=== PATIENT | male | born 1940 | race Caucasian/White ===

== ENCOUNTER 2020-10-26 10:18 | Outpatient (REF) | payer MEDICARE, SELFPAY ==
[2020-10-26 13:05] LABS: Hematocrit 40.6 % (42-52); Hemoglobin 13.2 g/dl (14.0-18.0); Mean Corpuscular HGB Conc 32.5 g/dl (31.0-36.0); Mean Corpuscular Hemoglobin 29.9 pg (27.0-33.0); Mean Corpuscular Volume 91.9 fL (80-98); Mean Platelet Volume 10.9 fL (9.4-12.4); Platelet Count 222 X10*3/uL (160-400); Red Blood Count 4.42 X10*6/uL (4.60-5.80); Red Cell Distribution Width 13.4 % (11.0-16.0); White Blood Count 7.5 X10*3/uL (4.8-10.8)
[2020-10-26 13:43] LABS: Alanine Aminotransferase 13 U/L (0-40); Alkaline Phosphatase 87 U/L (39-117); Anion Gap 15 (12-20); Aspartate Amino Transferase 18 U/L (5-37); Bilirubin Total 0.6 mg/dL (0.0-1.0); Blood Urea Nitrogen 20 mg/dL (9-16); Carbon Dioxide 24 mmol/L (22-29); Chloride 106 mmol/L (96-108); Estimated Glomerular Filt Rate 60; Glucose Random 115 mg/dL (60-115); Potassium 4.3 mmol/L (3.3-5.1); Sodium 141 mmol/L (135-145); Total Protein 6.3 g/dL (6.5-8.0)
[2020-10-26 13:49] LABS: Estimated Average Glucose 120 mg/dL; Hemoglobin A1c % 5.8 %
== END 2020-10-26 10:19 | disposition home or self-care (01) ==
LOC: HO.MANLDS 10:18
PROVIDERS: PCP Internal Medicine; Visit Provider Internal Medicine
DX: R73.01 Impaired fasting glucose (principal)
CPT/HCPCS: 36415; 80053; 83036; 85027

== ENCOUNTER 2021-05-30 14:24 | Outpatient (REF) | payer MEDICARE, SELFPAY ==
[2021-05-30 18:15] LABS: Hematocrit 39.6 % (42.0-52.0); Hemoglobin 12.6 g/dl (14.0-18.0); Mean Corpuscular HGB Conc 31.8 g/dl (31.0-36.0); Mean Corpuscular Hemoglobin 29.5 pg (27.0-33.0); Mean Corpuscular Volume 92.7 fL (80.0-98.0); Mean Platelet Volume 10.7 fL (9.4-12.4); Platelet Count 357 X10*3/uL (160-400); Red Blood Count 4.27 X10*6/uL (4.60-5.80); Red Cell Distribution Width 12.8 % (11.0-16.0); White Blood Count 11.1 X10*3/uL (4.8-10.8)
[2021-05-30 18:32] LABS: Alanine Aminotransferase 12 U/L (0-40); Albumin Level 3.7 g/dL (3.5-5.0); Alkaline Phosphatase 89 U/L (39-117); Anion Gap 13 (12-20); Aspartate Amino Transferase 15 U/L (5-37); Bilirubin Total 0.4 mg/dL (0.0-1.0); Blood Urea Nitrogen 21 mg/dL (9-16); C Reactive Protein 0.52 mg/dL (< or = 0.50); Calcium 9.1 mg/dL (8.4-10.2); Carbon Dioxide 26 mmol/L (22-29); Chloride 107 mmol/L (96-108); Estimated Glomerular Filt Rate 53; Glucose Random 121 mg/dL (60-115); Potassium 4.4 mmol/L (3.3-5.1); Sodium 142 mmol/L (135-145); Total Protein 6.5 g/dL (6.5-8.0)
[2021-05-30 18:53] LABS: Prostate Specific Antigen 1.28 ng/mL (<0.05-4.0)
== END 2021-05-30 14:25 | disposition home or self-care (01) ==
LOC: HO.MANLDS 14:24
PROVIDERS: PCP Internal Medicine; Visit Provider Internal Medicine
DX: I10 Essential (primary) hypertension (principal); Z12.5 Encounter for screening for malignant neoplasm of prostate
CPT/HCPCS: 36415; 80053; 84153; 85027; 86140

== ENCOUNTER 2022-03-27 12:06 | Outpatient (REF) | payer MEDICARE, SELFPAY ==
[2022-03-27 14:08] LABS: Appearance Urine Clear; Color Urine Yellow; Glucose Urine UA Negative (Negative); Leukocyte Esterase Urine Negative (Negative); Nitrite Urine Negative (Negative); Specific Gravity - Urine 1.015 (1.005-1.025); Urine Blood Negative (Negative); Urine Ketones Negative (Negative); Urine Protein Negative (Neg-Trace)
[2022-03-27 14:17] LABS: Bacteria Urine None Seen (None Seen); Hyaline Casts Urine 0-2 /LPF (0-2); RBC Urine 0-2 /HPF (0-2); Squamous Epithelial Cell Urine 0-2 /HPF (0-2); WBC Urine 0-5 /HPF (0-5)
== END 2022-03-27 12:07 | disposition home or self-care (01) ==
LOC: HO.MANLDS 12:06
PROVIDERS: Visit Provider Physician Assistant
DX: C67.1 Malignant neoplasm of dome of bladder (principal)
CPT/HCPCS: 81001; 87086

== ENCOUNTER 2022-05-11 11:32 | Outpatient (REF) | payer MEDICARE, SELFPAY ==
[2022-05-11 15:19] LABS: Vitamin B12 397 pg/mL (200-900)
== END 2022-05-11 11:33 | disposition home or self-care (01) ==
LOC: HO.MANLDS 11:32
PROVIDERS: Visit Provider Internal Medicine
DX: E55.9 Vitamin D deficiency, unspecified (principal); E53.8 Deficiency of other specified B group vitamins
CPT/HCPCS: 36415; 82306; 82607

== ENCOUNTER 2024-06-23 13:49 | Outpatient (REF) | payer MEDICARE, SELFPAY ==
--- OUTSIDE RECORDS SUMMARY | 2024-06-23 17:01 | XMS_ITS ---
Author Name [facility] [place] Organization [facility] [place] Address [address] [place] [id number] Care Team Providers Care Postbed Stitcher Name Role Phone MARIE CONSTANTINO Primary Care Provider Unavail able Insurance Providers: All historical and current Section Date Range: From patient's date of to the date document was created. This section includes the names of all active insurance providers for the patient. Insurance Provider Type of Coverage Plan Name Start of Policy Coverage End of Policy Coverage Group Number Member ID Insurance Provider's Telephone Number Policy Guo's Name Patient's Relationship to Policy Gou [facility] MEDICARE SUPPLEMEN SONIA PSUED OMEDE XBRON ZE Mar 11, 2008 [id number] Job FITZGERALDN PATIENT [facility] MEDICARE SUPPLEMEN SONIA MEDEX BRONZ E Mar 11, 2008 [id number] [phone] Job FITZGERALD DWIN PATIENT MEDICARE (WNR) MEDICARE (M) PART B Feb 09, 2008 PART B [id number] Job FITZGERALD DWIN PATIENT MEDICARE (WNR) MEDICARE (M) PART B Feb 09, 2008 PART B [id number] Job FITZGERALD DWIN PATIENT MEDICARE (WNR) MEDICARE (M) PART A July 10, 2007 PART A [id number] Job FITZGERALD DWIN PATIENT MEDICARE (WNR) MEDICARE (M) PART A July 10, 2007 PART A [id number] DWIN PATIENT Selected Encounter This section includes the information on record at [place] for the Encounter. Date/Time Encounter Type Encounter Description Reason Pro vider Source Jan 07, 2024 06:25 PM Outpatient Encounter ADMIN PAT ACTIVTIES (REDDYNONCT) IHE Encounter Template Text not used by [place] Plan of Treatment: Future Appointments (+ 6 months) and Future Tests (+/- 45 days) The Plan of Treatment section includes future care activities for the patient from all [place] [facility] This section includes future appointments and future orders which are active, pending or scheduled. Future Appointments This section includes appointments that were scheduled to occur 6 months from the date of the Encounter, up to a maximum of 20 appointments. The data comes from all [place] treatment facilities. Appointment Date/Time Appointment Type Appointme nt Facility Name Jan 29, 2024 11:00 AM [facility] Feb 13, 2024 03:00 PM AMBULAT[facility] Mar 23, 2024 02:00 PM [facility]INE [facility] Mar 23, 2024 02:30 PM AMBULATORY - MEDICINE [facility] Social History: Smoking Status (Most current) and Tobacco Use (All prior to encounter date) This section includes the most current, and the historical, smoking and tobacco- related health factors from the [place] facility where the Encounter took place. Current Smoking Status This section includes the most current smoking, or tobacco-related health factor, from the [place] facility where the Encounter took place. Date/Time Current Smoking Status Comment Facil ity Nov 22, 2022 10:00 AM [place]-TOBAC[place] FORMER USER [facility] Tobacco Use History This section includes a history of the smoking, or tobacco-related health factors, that were collected on or before the date of the Encounter. The data comes from the [place] facility where the Encounter took place. Date/Time Smoking Status/Tobacco Use Comment F acility Nov 22, 2022 10:00 AM [place]-TO[place]AC[place] QUIT 15 YRS OR MORE [facility] Dec 21, 2016 10:02 AM QUIT TOBACCO USE > 7 YEARS AGO [facility] Dec 12, 2015 09:07 AM QUIT TOBACCO USE > 7 YEARS AGO [place] [facility] Feb 29, 2012 02:16 PM QUIT TOBACCO USE > 7 YEARS AGO [facility] Encounter Notes: All associated encounter notes This section contains the clinical notes associated to the Encounter. Date/Time Encounter Note(s) Provider Source Jan 08, 2024 08:56 AM ADDENDUM: LOCAL TITLE: Addendum STANDARD TITLE: ADDENDUM DATE OF NOTE: JAN 08, 2024@08:56:52 ENTRY DATE: JAN 08, 2024@08:56:53 AUTHOR: MARINE AUSTIN EXP COSIGNER: URGENCY: STATUS: COMPLETED I ordered 1 bottle of 0.5% timolol to be mailed to the patient. He will need to be scheduled for optometry with imaging before any more refills can be mailed to him. Please schedule patient for within the next 45 days with any available provider or open access. /amado/ MARINE AUSTIN OD STAFF ANALYTICS ARCHITECT Signed: 01/08/2024 08:58 Receipt Acknowledged By: 01/08/2024 09:29 /es/ JADYN VASQUEZ ADVANCED PROSTHETIC LAB TECHNICIAN 01/08/2024 12:21 /amado/ ANNE MYRICK ADVANCED PROSTHETIC LAB TECHNICIAN ====== --- Original Document --- 01/07/24 V1 PHARMACY CUSTOMER CARE MEDICATION RENEWAL: Date: Dec Division: [facility] referred by Pharmacy Call Center for medication renewal: Non-controlled/maintenan ce medication Medications requested: [id number] TIMOLOL MALEATE 0.5% OPH SOLN Defer to specialty clinic To be mailed . Please review and renew if appropriate. *This note was generated by [facility] Customer Care. If you have any questions or need assistance, do not contact this author. Please refer all questions to your local, on-site pharmacy departments. /es/ MERLINE MAYERS Top Case Assembler, [place]/Pharmacy Customer Care Signed: 01/07/2024 18:25 Receipt Acknowledged By: 01/08/2024 08:56 /amado/ MARINE AUSTIN OD STAFF ANALYTICS ARCHITECT 01/08/2024 ADDENDUM STATUS: COMPLETED Called to schedule - no answer. LVM /amado/ JADYN VASQUEZ ADVANCED PROSTHETIC LAB TECHNICIAN Signed: 01/08/2024 09:33 MARINE AUSTIN [place] [facility] [place] [facility] Jan 07, 2024 06:25 PM PHARMACY NOTE: LOCAL TITLE: V1 PHARMACY CUSTOMER CARE MEDICATION RENEWAL STANDARD TITLE: PHARMACY NOTE DATE OF NOTE: JAN 07, 2024@18:25 ENTRY DATE: JAN 07, 2024@18:25:33 AUTHOR: MERLINE MAYERS EXP COSIGNER: URGENCY: STATUS: COMPLETED V1 PHARMACY CUSTOMER CARE MEDICATION RENEWAL Has ADDENDA Date: Dec Division: [facility] referred by Pharmacy Call Center for medication renewal: Non-controlled/maintenan ce medication Medications requested: [id number] TIMOLOL MALEATE 0.5% OPH SOLN Defer to specialty clinic To be mailed . Please review and renew if appropriate. *This note was generated by [facility] Customer [facility]. If you have any questions or need assistance, do not contact this author. Please refer all questions to your local, on-site pharmacy departments. /marizol MAYERS Top Case Assembler, [place]/Pharmacy Customer Care Signed: 01/07/2024 18:25 Receipt Acknowledged By: 01/08/2024 08:56 /marizol AUSTIN OD STAFF ANALYTICS ARCHITECT 01/08/2024 ADDENDUM STATUS: COMPLETED I ordered 1 bottle of 0.5% timolol to be mailed to the patient. He will need to be scheduled for optometry with imaging before any more refills can be mailed to him. Please schedule patient for within the next 45 days with any available provider or open access. /marizol AUSTIN OD STAFF ANALYTICS ARCHITECT Signed: 01/08/2024 08:58 Receipt Acknowledged By: 01/08/2024 09:29 /marizol VASQUEZ ADVANCED PROSTHETIC LAB TECHNICIAN * AWAITING SIGNATURE * ANNE MYRICK 01/08/2024 ADDENDUM STATUS: COMPLETED Called to schedule - no answer. MARISABEL /amado/ JADYN VASQUEZ ADVANCED PROSTHETIC LAB TECHNICIAN Signed: 01/08/2024 09:33 MERLINE MAYERS [facility]
--- OUTSIDE RECORDS SUMMARY | 2024-06-23 17:01 | XMS_ITS | Encounter Summary ---
Author Name [facility] [place] [facility] [place] Address [address] [place] [address] Care Team Providers Care Asbestos Hazard Abatement Worker Name Role Phone MARIE CONSTANTINO Primary Care [...] Policy Guo's Name Patient's Relationship to Policy Guo [facility] MEDICARE SUPPLEMEN SONIA PSUED OMEDE XBRON ZE Mar 11, 2008 [id number] [phone] Job FITZGERALD DWIN PATIENT [facility] MEDICARE SUPPLEMEN SONIA MEDEX BRONZ E Mar 11, 2008 [id number] [phone] Job FITZGERALD DWIN PATIENT MEDICARE (WNR) MEDICARE (M) PART B Feb 09, 2008 PART B [id number] [phone] Job FITZGERALD DWIN PATIENT MEDICARE (WNR) MEDICARE (M) PART B Feb 09, 2008 PART B [id number] Job FITZGERALD DWIN PATIENT MEDICARE (WNR) MEDICARE (M) PART A July 10, 2007 PART A [id number] Job FITZGERALD DWIN PATIENT MEDICARE (WNR) MEDICARE (M) PART A July 10, 2007 PART A [id number] Job FITZGERALDN PATIENT Selected Encounter This section includes the information on record at [place] for the Encounter. Date/Time Encounter Type Encounter Description Reason Provider Source Mar 23, 2024 02:30 PM CPTRZD OPH DX IMG PST SGM ON OPTOMETRY ICD-10-CM H40.1131 Primary open-angle glaucoma, bilateral, mild stage MARINE AUSTIN IHE Encounter Template Text not used by [place] Assessments - Encounter Diagnoses This section includes the primary and secondary diagnoses documented for the Encounter. Date/Time Primary/Secondary Diagnosis Diagnosis Name Provider Source Mar 23, 2024 03:05 PM PRIMARY Primary open-angle glaucoma, bilateral, mild stage MARINE AUSTIN [facility] Social History: Smoking Status (Most current) and Tobacco Use (All prior to encounter date) This section includes the most current, and the historical, smoking and tobacco- related health factors from the [place] facility where the Encounter took place. Current Smoking Status This section includes the most current smoking, or tobacco-related health factor, from the [place] facility where the Encounter took place. Date/Time Current Smoking Status Comment Facil ity Nov 22, 2022 10:00 AM [place]TO[place] FORMER USER [facility] Tobacco Use History This section includes a history of the smoking, or tobacco-related health factors, that were collected on or before the date of the Encounter. The data comes from the [place] facility where the Encounter took place. Date/Time Smoking Status/Tobacco Use Comment F acility Nov 22, 2022 10:00 AM [place]-TO[place] QU[place] 15 YRS OR MORE [facility] Dec 21, 2016 10:02 AM QUIT TOBACCO USE > 7 YE[facility] AGO [facility] Dec 12, 2015 09:07 AM QUIT TOBACCO USE > [facility] Feb 29, 2012 02:16 PM QUIT TOBACCO USE > [facility] Encounter Notes: All associated encounter notes This section contains the clinical notes associated to the Encounter. Date/Time Encounter Note(s) Provider Source Mar 23, 2024 02:58 PM OPTOMETRY CONSULT: LOCAL TITLE: CONSULT REPORT/OPTOMETRY OCT STANDARD TITLE: OPTOMETRY CONSULT DATE OF NOTE: MAR 23, 2024@14:58 ENTRY DATE: MAR 23, 2024@14:58:41 AUTHOR: LUIZA PATEL EXP COSIGNER: MARINE AUSTNI URGENCY: STATUS: COMPLETED RNFL OCT report: RNFL OCT reviewed for patient with underterminated stage of primary open-angle glaucoma OU OD Signal strength: 11/18 OD: average c/d 0.72, vertical c/d 0.80, disc area 1.72 mm^2. Average RNFL thickness 82 microns. Thinning at 7 o'clock. OS Signal strength: 10/18 OS: average c/d 0.83, vertical c/d 0.91, disc area 1.96 mm^2. Average RNFL thickness 71 microns. Mild thinning at 1 and mod thinning at 4 o'clock A/P: Bilateral primary open-angle glaucoma, unspecified stage OU; pt report good compliance with taking Timolol qAM OU - Thinner than average pachymetry OU: 527/522um - IOP higher than previous exaam: 17/18mmHg - Continue Timolol 0.5% 1gtt QAM OU - RNFL OCT today shows slight progressive thinning of rim tissue inferior temporally OD and stable OS - Pt re-educated about the importance of taking Timolol as directed - RTC 6mo for IOP check and repeated RNFL OCT /amado/ LUIZA PATEL OPTOMETRY STUDENT Signed: 03/23/2024 15:38 /amado/ MARINE AUSTIN OD STAFF APPRAISER REAL ESTATE Cosigned: 03/23/2024 15:38 [facility]EL [facility]
--- OUTSIDE RECORDS SUMMARY | 2024-06-23 17:01 | XMS_ITS ---
Author Name [facility] [place] [facility] [place] [facility] [place] [place] Address [address] [place] [id number] Care Team Providers Care Singing Telegram Performer Name Role Phone MARIE CONSTANTINO Primary Care [...] Guo's Name Patient's Relationship to Policy Guo [facility] MEDICARE SUPPLEMEN SONIA PSUED OMEDE XBRON ZE Mar 11, 2008 [id number] [facility] MEDICARE SUPPLEMEN SONIA MEDEX BRONZ E Mar 11, 2008 [id number] [phone] Job FITZGERALD DWIN PATIENT MEDICARE (WNR) MEDICARE (M) PART B Feb 09, 2008 PART B [id number] [phone] Job FITZGERALD DWIN PATIENT MEDICARE (WNR) MEDICARE (M) PART B Feb 09, 2008 PART B [id number] [phone] Job FITZGERALD DWIN PATIENT MEDICARE (WNR) MEDICARE (M) PART A July 10, 2007 PART A [id number] Job FITZGERALD DWIN PATIENT MEDICARE (WNR) MEDICARE (M) PART A July 10, 2007 PART A [id number] [phone] SZACRUK,E DWIN PATIENT Selected Encounter This section includes the information on record at [place] for the Encounter. Date/Time Encounter Type Encounter Description Reason Provider Source Feb 13, 2024 03:00 PM OFFICE O/P EST HI 40 MIN LOW VISION CARE ICD-10-CM H54.8 Legal blindness, as defined in [place] [facility] Encounter Template Text not used by [place] Assessments - Encounter Diagnoses This section includes the primary and secondary diagnoses documented for the Encounter. Date/Time Primary/Secondary Diagnosis Diagnosis Name Provider Source Feb 13, 2024 03:55 PM PRIMARY Legal blindness, as defined in [place] ALONDRA [facility]ENIOR [facility] Feb 13, 2024 03:55 PM SECONDARY Combined forms of age-related cataract, left eye SENIORALONDRA [facility] Feb 13, 2024 03:55 PM SECONDARY Exudative age-rel mclr degn, bilateral, with inactive scar SENIOR,ALONDRA Orr [facility] Feb 13, 2024 03:55 PM SECONDARY Presence of intraocular lens SENIOR,ALONDRA Orr [facility] Plan of Treatment: Future Appointments (+ 6 months) and Future Tests (+/- 45 days) The Plan of Treatment section includes future care activities for the patient from all [place] [facility] This section includes future appointments and future orders which are active, pending or scheduled. Future Appointments This section includes appointments that were scheduled to occur 6 months from the date of the Encounter, up to a maximum of 20 appointments. The data comes from all [place] treatment facilities. Appointment Date/Time Appointment Type Appointme nt Facility Name Mar 23, 2024 02:00 PM AMBULATORY - MEDICINE [facility] Mar 23, 2024 02:30 PM AMBULATORY - MEDICINE [facility] Social History: Smoking Status (Most current) and Tobacco Use (All prior to encounter date) This section includes the most current, and the historical, smoking and tobacco- related health factors from the [facility] facility where the Encounter took place. Current Smoking Status This section includes the most current smoking, or tobacco-related health factor, from the [place] facility where the Encounter took place. Date/Time Current Smoking Status Comment Facil ity Nov 22, 2022 10:00 AM VA-TOBACCO FORMER USER [facility] Tobacco Use History This section includes a history of the smoking, or tobacco-related health factors, that were collected on or before the date of the Encounter. The data comes from the [place] facility where the Encounter took place. Date/Time Smoking Status/Tobacco Use Comment F beni Nov 22, 2022 10:00 AM VA-TOBACCO QUIT 15 YRS OR MORE [facility] Dec 21, 2016 10:02 AM QUIT TOBACCO USE > 7 YEARS AGO [facility] Dec 12, 2015 09:07 AM QUIT TOBACCO USE > 7 YEARS AGO [facility] Feb 29, 2012 02:16 PM QUIT TOBACCO USE > 7 YEARS AGO [facility] Encounter Notes: All associated encounter notes This section contains the clinical notes associated to the Encounter. 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) Appointment Information: () Telehealth (Audio Only) () [facility] Telehealth () Video Chat Service Other: (x) Dzmf-hz-bpfo Verified two identifications: (x) Full name () Full Social Security Number (x) Date of () Address () Other, specify: (x)Yes ()No ()No Family/Friends present - Received verbal permission to speak in front of family/friend from Relationship to : Toni Nqlg-ws-Yblr Time documentation: Start time: 3:00pm End time:3:45pm Total time: 45 minutes minus Refraction time: (-) 0 min minus Special procedures time: (-) 0 min = 45 minutes total time spent with patient *Greater than 50% of the visit spent ttym-hm-buae with patient was used for patient education and counselling. Patient was educated about permanent nature of vision loss and specific visual limitation from patient's specific etiology. Realistic outcomes of exam discussed at length. Patient educated at length on importance of full-time protection and safety concerns with each recommendation. Patient educated on best use of remaining vision and visual prognosis. Patient educated re proper use and purpose of each device and spectacle. Patient educated on purpose of low vision evaluation and that this does not replace ocular health examinations. Further details of specific education as described above.* Coordination of Care: Prolonged time spent on coordination of care. Extensive record review performed in relation to prior ocular, systemic and mental health as well as VIST/BROS records both at this VA facility and all documentation available from outside providers as well as other VA locations to determine any physical, emotional, cognitive and visual events that may impact patient regarding the low vision evaluation and potential device recommendations. Total time spent (not tqvv-ky-vgin): 30 minutes Total Time (Direct + Non-Direct): 45 + 30 = 75 minutes Procedure Codes: Established Patient (1 time) 28631 Est Patient (40-54 minutes) Extended time Procedure Codes Established Patients Prolonged Office or other Outpatient Evaluation and Management Service(s) Beyond the Minimum Required Time of the Primary Procedure which has been Selected using Total Time, Requiring Total Time with or without Direct Patient Contact Beyond the Usual Service, on the Date of the Primary Service, each 15 minutes of Total Time (List Separately in addition to Codes 81044, 55727 for Office or other Outpatient Evaluation and Management Services) (2 times) 35455 (70-84 minutes) Chief Complaint(s): 1. Low Vision History Review 2. Zmwx-eh-Qlko Evaluation a. Habitual Rx c comments b. Visual Acuity c. Static Retinoscopy d. Subjective Refraction e. Final RX 3. Ocular Pathology Education 4. Final Recommendations 5. Future LVOD Appointments/RTC Instruction Provided: 1. Low Vision History Review Low Vision Evaluation for: LULÚ Crockett GIANNIRENA, 83 year old MALE Examiner: Alondra Senior, OD, FAAO Ocular Diagnosis: see above EULA: Location: 06.13.22 [facility] 12.20.21 [facility] [place] [facility] (x)NHM ()S Low vision instructor: Damien CARRANZA Chief Complaint: has not had ocular health managed and last refill sent in 01/[address] Edge approved open access in CPRS note dated 01/07/24. Assisted with MSA to find appointment on 03/23 for to come in for ocular health exam to ensure he can continue glaucoma medications. Buoevb-tm-rhy was not aware if VIST may be managing glaucoma so education provided to family. [place] extremely hard of hearing making all communication extremely difficult. RE- educated that there is not an eye transplant to fix his vision. Educated and family numerous times that there is not a pair of glasses that can make his vision as clear as he would like. Reports difficulty with reading menus, does not wear his glasses and has not tried to use his HHM. Chronology of Vision Loss: see prior report Adjustment to vision loss: appreciative of training and devices received but still not accepting of permanent nature of vision loss and lack of a fix to solve his permanent retinal damage. MISC: Eye Dominancy: OD Hand Dominancy: Right Color Vision: Denies difficulty Ocular Inventory: (-) Eye Pain (-) Burning (-) Itching (-) Watering (-) Redness (+) Photophobia: longstanding indoors and outdoors (-) Flashers (-) Floaters (-) Diplopia (-) Asthenopia (-) Headaches (-) Amaurosis Fugax (-) TIAs (+) Eye Injury or Trauma: h/o metallic FB (+) Eye Surgery: CE/PCIOL OD Dr. Tucker 2011; multiple injections OU (-) TBI (-) Jayesh Bonnet Syndrome Pt ed re CBS causes and signs. Pt ed to report these symptoms. No olfactory, auditory or gustatory sensation associated. 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) 272.4 HYPERLIPIDEMIA (ICD-9-CM 272.4) 401.9 HYPERTENSION (ICD-9-CM 401.9) H54.8 Legal blindness [facility] ([facility] [id number]) 278.00 OBESITY (ICD-9-CM 278.00) 600.00 BPH W/O URINARY OBSTRUCT (ICD-9-CM 600.00) Systemic Medications: Active Outpatient Medications (including Supplies): Active Outpatient Medications Status 1) TIMOLOL MALEATE 0.5% OPH SOLN INSTILL 1 DROP INTO EACH EYE ACTIVE EVERY MORNING Indication: FOR INCREASED PRESSURE IN THE EYE Active Non-VA Medications Status 1) Non-VA ASPIRIN 81MG EC TAB 81MG BY MOUTH AT BEDTIME ACTIVE 2) Non-VA IBUPROFEN TAB BY MOUTH NEEDED ACTIVE 3) Non-VA LOVASTATIN 10MG TAB 10MG BY MOUTH AT BEDTIME ACTIVE 4) Non-VA TERAZOSIN HCL 5MG CAP 5MG BY MOUTH AT BEDTIME ACTIVE 5 Total Medications ALLERGIES: Patient has answered NKA PREVIOUS OPTICAL DEVICES 1. Constant Wear Spec.: How Old: 06.14.22 Where From: [facility] OD: +0.50-1.28q060 OS: +1.00-2.68e510 Description: SV Tint: BlueBlocker #1 Subjective Comments: not using. *Prior Tints: 80% Transmission [place]/Pamela 70% Transmission Swan 80% Transmission Pamela 2. Reading Spec.: How Old: 06.14.22 Where From: [facility] OD: +3.00-1.59n225 OS: +3.50-2.73d546 Description: SV Tint: Blue Kole #1 Subjective Comments: using with machine 3. Intermediate Spec.: How Old: 12/2018 Where From: [facility] LV OD: +2.50-1.86z566 OS: +3.00-2.26u684 Description: SV CCTV Tint: 70% Transmission Swan Subjective Comments: had prior binoc and monoc occlus from 2016 *Prior Tints: 80% transmission [place]/Pamela 4. Non-Illuminated HHM: Description: 4x HH Yo-Yo (red cover) How Old: 12/2018 Where From: [facility] LV 5. Illuminated HHM: Description: HEMA Ergo-Lux MP Mobil 16D How Old: 12/2018 Where From: [facility] 6. Monocular/Binocular Telescopes: Description: 3x binocular sportsglasses How Old: 03/2012 Where From: [facility] Subjective Comments: 6. Monocular/Binocular Telescopes: Description: 6x16 slide How Old: 03/2012 Where From: [facility] Subjective Comments: 7. Spectacle Mounted Telescopes: n/a 8. Sunwear: 30% Transmission Swan *Prior Tints: 30% Transmission [place]/Pamela 9. Non-optical Devices: Ultima Low Vision Watch - White Dial - Leather Band Liquid Level Indicator, Dual Beep, 3 prong Oven Mitt (please order quantity of 2) Push Pull Oven Ruler Double Spatula Tavera-Plastic Double Spatula Tavera-Metal Timer, Tact. Erg. (square-White Face) Low Vision High Contrast Black and White Cutting Board autodrop eye drop Low Vision Watch - White Face - Gold Expansion Band Mens Chrome Low Vision Watch - Leather band Writing Guide, Deluxe Check Mens Gold-Tone Low Vision Watch SIGNATURE GUIDE 10. Other Spectacles or Devices: (x) Optivisor 3D c 10D loupe and quasar light * not using (x) LuxoMag Lamp 5D with 10D swing lens *has over bench (x) Stand Magnifier POWERMAG+ 5X/16D LED STAND HEAD (x) CCTV with/without OCR 19 Brad CCTV () Portable Video Magnifier () Head borne Video Magnifier () Other: MOBILITY: In Patient's Home: (x) Patient denies difficulty or recent falls Outdoors: (x) Patient denies difficulty or recent falls CO-MORBIDITIES: (for rehab potential purposes) () Severe Arthritis () Hand tremors () Cognition impairment () Hearing loss () Depression/anxiety () Physical limitations () Memory loss () Other: INTERESTS/HOBBIES: enjoys using CCTV, reports he wears his glasses when he watches TV and doesn't watch a lot of TV. Reports he enjoys reading books. Enjoys playing [place], uses TS and HHM for this. GOALS (PRIORITIZED): 1. Assist in re-establishing care with ocular health provider 2. Fbki-eg-Xgcl Evaluation a. Habitual Rx c comments: DVAcc: 12.20.21 OD: +0.50-1.01q273 10/60-1 3 mod OS: +1.00-2.55p159 10/300 10 mod b. Visual acuity Nery cc Eccentric View: Illumination: OD: 10/100+1 3 mod-dim OS: 10/350 10 mod-dim Comments: extremely difficulty c. Static Retinoscopy OD: neutral OS: neutral d. Subjective Refraction: no improvement e. Final RX: CPM Comments: Patient educated extensively that constant wear glasses and sunglasses will reduce glare and provide protection but will not improve clarity from current glasses and that for best clarity must use PRL. Patient educated multiple times on the importance of full-time protective eyewear. Discussed with the patient the realistic expectations and goal of low vision services in maximizing remaining vision to best meet his visual goals. 3. Ocular Pathology Education: Patient educated at length regarding natural history of ocular pathology, purpose of treatment, and the impact on functional vision. Patient educated on the importance of continued follow-up with ocular health providers and that low vision rehabilitation in no way replaces ocular health exams. Patient educated on importance of alerting ocular health provider of any changes in vision or new symptoms. Patient educated on permanent nature of vision loss associated with ocular pathology. Patient educated on the differences in refractive error and the impact of ocular pathology. Patient educated on purpose of glasses and adaptive aids. 4. Final Recommendations: CPM 5. Future LVOD Appointments/RTC (x)Low vision evaluation completed at this time, no scheduled follow-up indicated at present RTC as needed Prosthetics Ordered: 1. See Above Next Lesson Objective / Recommendations: 1. The evaluation and training on the use of the recommended aids, processes, and/or techniques is complete, no additional instruction is necessary at this time. 2. The [place] has been provided large print contact information and is aware that he can contact the LVOD, VIST or BROS with any questions from todays lesson or about his vision loss. Comments: How does the patient/client best learn? (x) Observation (x) Repetition () Large Print Directions () Standard Print Directions (x) Audible Directions Does the patient/client have any cultural and congregational beliefs, emotional barriers, physical or cognitive limitations, and communication barriers which may impact his/her ability to learn? Barrier to Patient Education identified: None() Non-Romansh speaking() Cognitive () Hearing Impaired (xxx) Emotional () Spiritual Practices () Visually Impaired (x) Inability to read () Preferred method of learning: (x)Verbal ()Written ()Demonstration Patient's response: (x)Could repeat significant material (x)Asked pertinent questions (x)Able to demonstrate skills learned Desire and motivation to learn? () Excellent () Moderate (x) Low Not receptive to learning () Patient Education Education provided on the following topics: see above Education provided to: P Response to Education: KEENAN, SHEBA, PI Lopez Patient P Family F Significant Other SO Verbalizes Understanding VU Returns Demonstration RD Performs Independently PI Lacks Comprehension LC Refused Education RE Not Applicable NA Disclaimer: Because the acuities and piña in this evaluation were taken using special techniques and lighting NOT contained in the [place] Physician Guide Disability Evaluation Examination, they CANNOT be used for rating purposes. Medication Reconciliation: Outpatient: Has the patient been taking medications as documented in the EMLR? YES: The patient has been taking medications as documented in the EMLR. Essential Medication List for Review used to complete this medication reconciliation. INCLUDED IN THIS LIST: Alphabetical list of active outpatient prescriptions dispensed from this VA (local) and dispensed from another VA or DoD facility (remote) as well as inpatient orders (local, pending and active), local clinic medications, locally documented non-VA medications, and local prescriptions that have or been discontinued in the past 90 days. - All changes in medications, including all non-VA/Herbal/OTC medications were entered into CPRS. - If there were any medications the patient should no longer take, they were discontinued. - The patient/caregiver was instructed to update this list, discard old lists, and take this list to the next appointment, whether with a VA or non-VA provider. Medication List: JLV Link Data on this list may not be complete. Please check JLV. Allergies/ADRs (Tool #5) FACILITY ALLERGY/ADR -------- No Remote Allergy/ADR Data available for this patient IN [facility] No Known Allergies Med. Reconciliation (Tool #1) INCLUDED IN THIS LIST: Alphabetical list of active outpatient prescriptions dispensed from this VA (local) and dispensed from another VA or DoD facility (remote) as well as inpatient orders (local pending and active), local clinic medications, locally documented non-VA medications, and local prescriptions that have or been discontinued in the past 90 days. Non-VA Meds Last Documented On: Feb 29, 2012 NOTE The display of VA prescriptions dispensed from another VA or DoD facility (remote) is limited to active outpatient prescription entries matched to National Drug File at the originating site and may not include some items such as investigational drugs, compounds, etc. NOT INCLUDED IN THIS LIST: Medications self-entered by the patient into personal health records (i.e. [employer] Data) are NOT included in this list. Non-VA medications documented outside this [place], remote inpatient orders (regardless of status) and remote clinic medications are NOT included in this list. The patient and provider must always discuss medications the patient is taking, regardless of where the medication was dispensed or obtained. Non-VA ASPIRIN 81MG EC TAB TAKE ONE TABLET BY MOUTH AT BEDTIME Non-VA IBUPROFEN TAB TAKE BY MOUTH NEEDED On occassion. Non-VA LOVASTATIN 10MG TAB TAKE ONE TABLET BY MOUTH AT BEDTIME Non-VA TERAZOSIN HCL 5MG CAP TAKE 1 CAPSULE BY MOUTH AT BEDTIME OUTPT TIMOLOL MALEATE 0.5% OPH SOLN (Status = Active) INSTILL 1 DROP INTO EACH EYE EVERY MORNING FOR INCREASED PRESSURE IN THE EYE Rx# [id number] Last Released: 01/14/24 Qty/Days Supply: Rx Expiration Date: 04/07/24 Refills Remainin Indication: FOR INCREASED PRESSURE IN THE EYE SUPPLIES PHARMACY TERMS AND POSSIBLE PATIENT ACTIONS INPT = IN inpatient order IV = IN intravenous medication OUTPT = IN outpatient prescription PHARMACY POSSIBLE PATIENT TERMS EXPLANATION ACTIONS -------- ----- ACTIVE A prescription that can be If you have refills, filled at the local [place] pharmacy. you may request a refill of this prescription from your VA pharmacy. CLINIC A medication you received during If you have questions a visit to a VA clinic or about this medication emergency department. contact your VA healthcare team. DISCONTINUED A prescription your provider has Contact your VA stopped. It is no longer healthcare team if you available to be sent to you or need more of this picked up at the [place] pharmacy medication. window. A prescription which is too old Contact your VA to fill. This does not refer to healthcare team if you the expiration date of the need more of this medication in the container. medication. NON-VA A medication that came from If this medication someplace other than a VA information is pharmacy. This may be a incorrect or out of prescription from either the VA date, please tell your or non VA providers that was VA healthcare team. filled outside the VA. Or, it may be an khus-myc-ycpnixs (OTC), herbal, dietary supplements or sample medication. ON HOLD An active prescription that will Contact your VA not be filled until pharmacy pharmacy when you need resolves the issue. more of this medication. PARKED An active prescription that will Contact your VA not be filled until the patient pharmacy when you need requests it. this medication. PENDING This prescription order has been If you have been sent to the pharmacy for review instructed to start and is not ready yet. this medication now, contact your VA pharmacy. SUSPENDED An active prescription that is Contact your [place] not scheduled to be filled yet. pharmacy if you need You should receive it before this medication now. you run out. (x) Printed Medication Reconciliation List Offered and Declined by () Medication Reconciliation List Printed for at Exam () Optometry HT Please Print and Mail Copy of Medication Reconciliation List () AMSA Please Print and Mail Copy of Medication Reconciliation List /es/ ALONDRA SENIOR OD EDUCATIONAL RECRUITER Signed: 02/13/2024 15:58 ALONDRA SENIOR IN [facility]
--- OUTSIDE RECORDS SUMMARY | 2024-06-23 17:01 | XMS_ITS ---
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 Name Role Phone MARIE CONSTANTINO Primary Care [...] Guo's Name Patient's Relationship to Policy Guo [facility] MEDICARE SUPPLEMEN SONIA PSUED OMEDE XBRON ZE Mar 11, 2008 [id number] Job FITZGERALDN PATIENT [facility] MEDICARE SUPPLEMEN SONIA MEDEX BRONZ E Mar 11, 2008 [id number] [phone] Job FITZGERALD DWIN PATIENT MEDICARE (WNR) MEDICARE (M) PART B Feb 09, 2008 PART B [id number] Job FITZGERALD DWIN PATIENT MEDICARE (WNR) MEDICARE (M) PART B Feb 09, 2008 PART B [id number] Job FITZGERALD DWIN PATIENT MEDICARE (WNR) MEDICARE (M) PART A July 10, 2007 PART A [id number] Job FITZGERALD DWIN PATIENT MEDICARE (WNR) MEDICARE (M) PART A July 10, 2007 PART A [id number] SZACRUK,E DWIN PATIENT Selected Encounter This section includes the information on [place] at [place] for the Encounter. Date/Time Encounter Type Encounter Description Reason Provider Source Mar 23, 2024 02:00 PM COMPRE OPH EXAM EST PT 1/> OPTOMETRY ICD-10-CM H35.3223 Exudative age-rel mclr degn, left eye, with inactive scar MARINE AUSTIN Job Encounter Template Text not used by VA Assessments - Encounter Diagnoses This section includes the primary and secondary diagnoses documented for the Encounter. Date/Time Primary/Secondary Diagnosis Diagnosis Name Provider Source Mar 23, 2024 02:56 PM PRIMARY Exudative age-rel mclr degn, left eye, with inactive scar [place] [facility] [place] [facility] Mar 23, 2024 02:56 PM SECONDARY Age-related nuclear cataract, left eye [place] [facility] [place] [facility] Mar 23, 2024 02:56 PM SECONDARY Cortical age-related cataract, left eye [place] [facility] [place] [facility] Mar 23, 2024 02:56 PM SECONDARY Exudative age-rel mclr degn, right eye, with inactive scar [place] [facility] [place] [facility] Mar 23, 2024 02:56 PM SECONDARY Presence of intraocular lens [place] [facility] [place] [facility] Mar 23, 2024 02:56 PM SECONDARY Primary open-angle glaucoma, bilateral, mild stage [facility] [place] [facility] Social History: Smoking Status (Most current) and Tobacco Use (All prior to encounter date) This section includes the most current, and the historical, smoking and tobacco- related health factors from the [place] facility where the Encounter took place. Current Smoking Status This section includes the most current smoking, or tobacco-related health factor, from the [place] facility where the Encounter took place. Date/Time Current Smoking Status Comment Facil ity Nov 22, 2022 10:00 AM VA-TOBACCO [facility] Tobacco Use History This section includes a history of the smoking, or tobacco-related health factors, that were collected on or before the date of the Encounter. The data comes from the [place] facility where the Encounter took place. Date/Time Smoking Status/Tobacco Use Comment F acility Nov 22, 2022 10:00 AM VA-TOBACCO QUIT 15 YRS OR MORE [facility] Dec 21, 2016 10:02 AM QUIT TOBACCO USE > 7 YEARS AGO [facility] Dec 12, 2015 09:07 AM QUIT TOBACCO USE > 7 YEARS AGO [facility] Feb 29, 2012 02:16 PM QUIT TOBACCO USE > 7 YEARS AGO [facility] Encounter Notes: All associated encounter notes This section contains the clinical notes associated to the Encounter. Date/Time Encounter Note(s) Provider Source Mar 23, 2024 03:04 PM OPTOMETRY NOTE: LOCAL TITLE: OPTOMETRY NOTE(T) STANDARD TITLE: OPTOMETRY NOTE DATE OF NOTE: MAR 23, 2024@15:04 ENTRY DATE: MAR 23, 2024@15:04:32 AUTHOR: MARINE AUSTIN EXP COSIGNER: URGENCY: STATUS: COMPLETED Results were viewed and clinical findings were reviewed with student international bank manager and patient and results are in this note. Assessment and plan are reasonable. Patient history of mild open-angle glaucoma OU. Follow-up as scheduled for today. /amado/ MARINE AUSTIN OD STAFF SCAGLIOLA MECHANIC Signed: 03/23/2024 15:04 MARINE AUSTIN [facility] Mar 23, 2024 02:54 PM OPTOMETRY NOTE: LOCAL TITLE: OPTOMETRY NOTE(T) STANDARD TITLE: OPTOMETRY NOTE DATE OF NOTE: MAR 23, 2024@14:54 ENTRY DATE: MAR 23, 2024@14:54:32 AUTHOR: MARINE AUSTIN EXP COSIGNER: URGENCY: STATUS: COMPLETED I saw this patient in conjunction with the student and agree to the stated findings and plan after reviewing both history and repeating fink elements of physical exam. Patient presents for comprehensive exam well-known to me with history of wet macular degeneration with injections and is now stable dry scarring macular area each eye. He also has mild open-angle glaucoma with slightly elevated pressures today. He states that he takes timolol every morning but may miss the drops on occasion and has some difficulty with instillation. Otherwise no other acute ocular disease was seen today. The patient will return in 6 months or sooner if any problems arise, including repeat imaging (OCT). /es/ MARINE AUSTIN OD STAFF SCAGLIOLA MECHANIC Signed: 03/23/2024 14:58 [place] [facility] [facility] [place] [facility] Mar 23, 2024 07:32 AM OPTOMETRY NOTE: LOCAL TITLE: OPTOMETRY NOTE STANDARD TITLE: OPTOMETRY NOTE DATE OF NOTE: MAR 23, 2024@07:32 ENTRY DATE: MAR 23, 2024@07:32:47 AUTHOR: LUIZA PATEL EXP COSIGNER: MARINE AUSTIN URGENCY: STATUS: COMPLETED Active problems - Computerized Problem List is the source for the followin. Cochlear Device Implantation 2. Bladder Carcinoma 3. HYPERLIPIDEMIA 4. HYPERTENSION 5. Legal blindness [place] (SNOMED CT [id number]) 6. OBESITY 7. BPH W/O URINARY OBSTRUCT Active Outpatient Medications (including Supplies): Active Outpatient Medications Status = 1) TIMOLOL MALEATE 0.5% OPH SOLN INSTILL 1 DROP INTO EACH EYE ACTIVE EVERY MORNING Indication: FOR INCREASED PRESSURE IN THE EYE Active Non-VA Medications Status = 1) Non-VA ASPIRIN 81MG EC TAB 81MG BY MOUTH AT BEDTIME ACTIVE 2) Non-VA IBUPROFEN TAB BY MOUTH NEEDED ACTIVE 3) Non-VA LOVASTATIN 10MG TAB 10MG BY MOUTH AT BEDTIME ACTIVE 4) Non-VA TERAZOSIN HCL 5MG CAP 5MG BY MOUTH AT BEDTIME ACTIVE 5 Total Medications Allergies: Patient has answered NKA All medications including those prescribed by outside VA's, community providers,and all OTC meds were reviewed and reconciled with patient to the best of their abilities. This 83 year old MALE is seen today for annual CEE EULA: 06/13/22 Chief Complaint: Pt reported he is in good compliance of taking Timolol qAM OU but he did not have any drops refilled for a few months before December. He also reported intermittent tearing eyes and wants to have some lubricating eye drops. He has not seen any retinal specialists for the past 2 years because they said the macular degeneration has been stable in both eyes and no anti-VEGF injection is needed. Glaucoma medication: Timolol 0.5% qAM OU OHx: 1. 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 Bilateral POAG, unspecified stage 3. Pseudophakia OD 4. Combined cataracts OS (-) Pain: (-) JENNINGS: (-) Diplopia: (-) Flashes: (-) Floaters: (-) Amaurosis Fugax/Tia's: (+) Eye Injury: h/o metallic FB (+) Eye Surgery: CE with PCIOL OD w. Dr. Tucker 2011; multiple injections OU (-) TBI FOHx: (-) Glaucoma/ARMD/Blindness VITALS (most recent, as listed in the electronic record): B/P: 126/73 (11/22/2022 10:32) Pulse: 82 (11/22/2022 10:32) Temperature: 97.2 F [36.2 C] (11/22/2022 10:32) Weight: 178 lb [80.74 kg] (11/22/2022 10:32) Height: 71 in [180.3 cm] (02/22/2014 13:19) BMI: BMI: 24.9 PERTINENT LABS: HEMOGLOBIN A1C TREND No data available (-) Smoker/Length of Time/PPD: Current Rx with last BCVA with LV 02/13/24; Nery, mod-dim illumination OD: +0.50-1.50 x090 10/100+1 3 o'clock EV OS: +1.00-2.50 x090 10/350 10 o'clock EV Add:+2.50 DVA ( )sc ( x )cc - trial frame with Nery OD: 080 searching OS: 350 searching (took of hearing aids and cannot hear well for EV instruction) Pupils: PERRL (-)APD EOMs: SAFE OU, (-)Pain/Diplopia CVF (facial, peripheral): not able to performed due to low vision Subjective refraction not performed today All the above performed by student, reviewed by attending Anterior segment: Performed by student, repeated by attending Lids: 1+ ectropion of lower lid OU Conj: white and quiet OU Cornea: 1+ coalesced SPKs staining at 1/3 inferiorly (-)k spindle OU AC: D&Q OU Angles: 4x4 OU Iris: flat and clear (-)NVI/TID OU Lens: PCIOL well-centered and clear post YAG capsulotomy OD 2+ NSC and trc cortical OS (-)PXF OU Tonometry: Performed by student, reviewed by attending [x ] GAT [ ] iCare OD 17 mmHg OS 18 mmHg Time: 14:15 Tmax: OD: 19 OS: 25 Last IOP OD: 11 OS: 12 Pachymetry: OD: 527 OS: 522 PreTreatment IOP: OD: 19 OS: 25 Fundus exam: Dilated: xxx Non dilated: Dilating Drops: 1GTT 1 % Tropicamide OU & 1GTT 2.5% Phenylephrine OU (Pt. ed. on side effects, dilation warning given and verbal consent obtained) Patient advised not to drive if they feel they have any symptoms which could affect their ability to drive safely. Patient advised not to engage in any activities which could put themselves or others at risk if they feel they have any symptoms which could affect their ability to perform those activities safely. Performed by student, repeated by attending Vit: Vitreous syneresis OU C/D: 0.70H/0.80V OD and 0.80H/0.90V OS (-)Drance heme Macula: Extensive scarring OU (-)SRF/SRH OU PPole: Clear OU A/V: 2/3 Vessels: normal caliber (-)OU Periph: flat and intact (-)holes, tears, detachments 360 OU Assessment/Plan: 1. 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 Bilateral primary open-angle glaucoma, unspecified stage OU; [...] for IOP check and repeated RNFL OCT 3. 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 Pseudophakia OD post YAG capsulotomy - Well-centered and stable - Monitor 4. Combined cataracts OS - Stable - Monitor 5. 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 ed. on todays findings - Ordering Refresh - Ed. pt. to use QID OU even on days when eyes are not feeling dry and recommended not to take it the same time with Timolol gtt or wait at least a few minutes between 2 drops - Monitor Return to Clinic 6mo or earlier PRN Education: After discussion and answering all 's questions, demonstrated and verbalized understanding of diagnosis and treatment. Yes [x] No [ ] Patient Education: Glaucoma: Patient was educated regarding glaucoma/glaucoma suspect as well as the natural history of this diagnosis including prognosis. Stress importance of compliance and persistency with glaucoma medication when prescribed, timely follow up as well as the role of ancillary testing. Exclusion criteria for ancillary testing include significantly reduced acuity, mental status changes affecting the patient's ability to attend to the test or other physical limitations that would prohibit the patient's ability to participate in testing. Macular Degeneration: Patient was educated regarding macular degeneration including both wet and dry varieties as well as the natural history and prognosis of this condition. Education included the role of amsler grid testing , ocular nutraceutical therapy as well as diet and healthy lifestyle choices when applicable. Exclusion criteria includes extremely reduced acuity or cognitive decline for amsler grid testing and other coexisting systemic contraindication for supplements, diet and exercise. Medication Reconciliation: Outpatient: Has the patient been taking medications as documented in the EMLR? YES: The patient has been taking medications as documented in the EMLR. Essential Medication List for Review used to complete this medication reconciliation. INCLUDED IN THIS LIST: Alphabetical list of active outpatient prescriptions dispensed from this [facility] (local) and dispensed from another [place] or [place] facility (remote) as well as [...] whether with a VA or non-VA provider. /amado/ LUIZA PATEL OPTOMETRY STUDENT Signed: 03/23/2024 15:37 /amado/ MARINE AUSTIN OD STAFF SCAGLIOLA MECHANIC Cosigned: 03/23/2024 15:39 LUIZA PATEL [place] [facility]
--- OUTSIDE RECORDS SUMMARY | 2024-06-23 17:01 | XMS_ITS | Continuity of Care Document ---
Author Organization [place] - [facility], [facility] Address [address] [place] [address] [place] [address] Assessment Encounter Date Assessment Date Assessment LastModified by Organization Details LastModified Time 06/23/2024 06/23/2024 [address] [place] [id number] (PAIN COORDINATOR) MDM MODERATE MUST MEET 2 OUT OF 3 ELEMENTS: PROBLEMS, DATA OR RISK ELEMENT 1: PROBLEMS ADDRESSED 1 OR MORE CHRONIC ILLNESS WITH EXACERBATION OR 2 OR MORE STABLE CHRONIC ILLNESSES OR 1 UNDIAGNOSED NEW PROBLEM OR 1 ACUTE ILLNESS W/SYMPTOMS OR 1 ACUTE COMPLICATED INJURY ELEMENT 2: DATA MUST MEET 1 OF 3 CATEGORIES CATEGORY 1: REVIEW OF PRIOR EXTERNAL NOTES, REVIEW OF RESULTS, ORDERING OF EACH TEST, ASSESSMENT REQUIRING INDEPENDENT HISTORIAN OR CATEGORY 2: INDEPENDENT INTERPRETATION OF TESTS BY ANOTHER PHYSICIAN OR SPECIALIST OR CATEGORY 3: DISCUSSION OF MGT OR TEST INTERPRETATION W/EXTERNAL PHYSICIAN OR SPECIALIST ELEMENT 3: RISK RISK OF COMPLICATIONS AND/OR MORBIDITY OR MORTALITY OF PATIENT MANAGEMENT PROVIDER MUST THOROUGHLY DOCUMENT EACH ELEMENT THAT IS COVERED Not available 06/23/2024 13:36:14 Plan of Treatment Reminders Order Date Submit Date Provider Last Modified By Organization Details Last Modified Time Details Appointments FOLLOW UP 15 2024 01:30P M DR GHOSH Not available Not available Not available FOLLOW UP 15 2024 01:30P M DR GHOSH Not available Not available Not available Lab hemoglobi n A1c, QN, blood 2024 025 [facility], [address] [place] [address], [id number], 06/23/2024 13:51:40 CMP, serum or plasma 2024 025 [facility], [address] [place] [address], [id number], 06/23/2024 13:51:40 CBC 2024 025 [facility], [address], [place], [address], 06/23/2024 13:51:40 PSA, serum or plasma 2024 025 [facility], [address], [place], [address], 06/23/2024 13:51:40 Referral None recorded. Procedures None recorded. Surgeries None recorded. Imaging None recorded. Medication Orders diclofena c sodium 50 mg tablet,de layed release 2024 025 [facility], [address] [place], [address], 06/23/2024 13:41:00 Patient TargetsNo targets recorded. Patient InstructionsNo instructions recorded. Reason for Referral None Reported. Problems Name Problem SNOMED Code Status Onset Date Resolution Date Notes Provider Name and Address Organization Details Recorded Time Essential hypertens ion 73694769 [facility] 08:17:43 Hyperchol esterolem ia 51636399 Active 2017 Rocky kan [facility] 8 08:18:03 Neoplasm of urinary bladder 912122786 Active 2017 Rocky kan [facility] 8 08:18:17 Impaired fasting glycemia 715480473 Active 2017 Rocky kan [facility] 8 08:19:02 Lumbar arthritis 757153647 Active 2017 Krishna Ghosh DO [address] [place], [address], [facility] 8 09:59:37 Eczema 39273666 Active 2018 Krishna Ghosh DO [address] [place], [address], [facility] 9 09:33:29 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 Krishna Ghosh DO [address] [place] [address], [address], [facility] 2 22:52:26 Pain of left shoulder joint 085431088145 68322 Active 2021 Krishna Ghosh DO [address] [place] [address], [address], [facility] 2 09:03:36 Pneumonia 376049729 Active 2022 VICENTE OLIVEROS [address] [place] [address], [address], [facility] 3 09:12:34 Pneumonia caused by SARS-CoV- 2 612206138689 618220 Active 2022 VICENTE OLIVEROS [address] [place] [address], [phone], [facility] 3 09:13:05 Anemia 881607671 Active 2022 Krishna Ghosh DO [address] [place] [address], [address], [facility] 3 16:13:36 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 Procedures Surgical History Date Name Laterality Status Provider Name and Address Organization Details Recorded Time 024 Corticosteroid Injection completed Krishna Ghosh DO [address] [place] [address], [phone], [facility] 07/26/2023 12:08:25 022 Corticosteroid Injection completed Krishna Ghosh DO [address] [place] [address], [phone], [facility] 06/13/2021 14:03:18 Imaging Results None recorded. Procedure Notes None recorded. Medical Equipment None Reported. Allergies No known drug allergies Medications Name Sig Start Date Stop Date Status Note LastModified by Organization Details LastModified Time terazosin 5 mg capsule TAKE 1 CAPSULE BY MOUTH ONCE DAILY active Not Available Not Available No t Available lovastatin 10 mg tablet TAKE 1 TABLET BY MOUTH ONCE DAILY active Not Available Not Available No t Available triamcinolone acetonide 0.1 % topical cream APPLY A THIN LAYER TO THE AFFECTED AREA(S) BY TOPICAL ROUTE 2 TIMES PER DAY 2018 active Not Available Not Available Not Avai lable diclofenac sodium 50 mg tablet,delayed release Take 1 tablet twice a day by oral route as needed for 30 days. 2024 active Not Available Not Available Not Avai lable ergocalciferol (vitamin D2) 1,250 mcg (50,000 unit) capsule TAKE 1 CAPSULE BY MOUTH ONCE A WEEK active Not Available Not Available No t Available aspirin 81mg qd active Not Available Not Avai lable Not Available cholecalcifero l (vitamin D3) 1,250 mcg (50,000 unit) capsule TAKE 1 CAPSULE BY MOUTH ONCE A WEEK active Not Available Not Available No t Available Vitals Date Recorded Body height Body mass index (BMI) Body weight Heart rate Oxygen saturation Oxygen saturation in Arterial blood by Pulse oximetry Systolic blood pressure Diastolic blood pressure Provider Name and Address Organization Details Last Updated DateTime 5 172.72 cm 25.4 kg/m2 91190.9 3 g 77 /min 97 % 97 % 130 mm[Hg] 68 mm[Hg] [facility] 5 13:26:53 Social History Question Answer Notes LastModified by Organizat ion Details LastModified Time Tobacco Smoking Status Former Smoker Not Available [facility] 01/12/2020 03:36:24 What Was The Date Of Your Most Recent Tobacco Screening? 01/01/2024 [email or web address] Information not available 01/01/2024 Do You Or Have You Ever Used Any Other Forms Of Tobacco Or Nicotine? No Information not available 04/02/2022 Sex: Unknown Functional Status None recorded. Mental Status None recorded. Family History Nothing Reported. Medical History No medical history recorded. Immunizations Vaccine Type Date Status Note Provider Nam e and Address Organization Details Recorded Time COVID-19, mRNA, LNP-S, PF, 100 mcg/0.5mL dose or 50 mcg/0.25mL dose 1 completed Krishna Ghosh DO [address] [place] [address], [phone], [facility] 05/30/2021 14:08:20 COVID-19, mRNA, LNP-S, PF, 100 mcg/0.5mL dose or 50 mcg/0.25mL dose 1 completed Krishna Ghosh DO [address] [place] [address], [phone], [facility] 05/30/2021 14:08:50 COVID-19, mRNA, LNP-S, PF, 100 mcg/0.5mL dose or 50 mcg/0.25mL dose 1 completed Krishna Ghosh DO [address] [place] [address], [address], [facility] 05/30/2021 14:08:35 influenza, unspecified formulation [facility] 11:06:09 zoster, unspecified formulation 0 completed Krishna Ghosh DO [address] [place] [address], [phone], [facility] 05/07/2019 14:20:31 Tdap 0 completed Krishna Ghosh DO [address] [place] [address], [phone], [facility] 05/07/2019 14:21:39 Pneumococcal conjugate PCV 13 0 completed Krishna Ghosh DO [address] [place] [address], [phone], [facility] 05/07/2019 14:22:22 Past Encounters Encounter ID Performer Location Encounter Start Date Encounter Closed Date Diagnosis/Indication Diagnosis SNOMED-CT Code Diagnosis ICD10 Code Diagnosis Note [id number] Krishna Ghosh DO [facility] [address],[place] [address] 06/23/2024 13:15:17 06/23/2024 14:21:43 Essential hypertension 40026826 I10 here for bp doing ok overall Hypercholesterolemia 136 11618 E78.00 stable and not having any issues with the lovastatin Impaired f asting glycemia 221442966 R73.01 a1c is 5.3 Depression screening 171 046927 Z13.31 neg Lumbar arthritis 1065811 01 M46.96 we will try to get him some medication to use on a prn but he will let me know when he wants ithas worsening radiculopa thy will need a cane to assist with his ambulation as he is now a fall riskwe will have him try diclofenac 50 bid Health Concerns Section Related Observation LastModified by Organization Detai ls LastModified Time None Recorded Concern Status LastModified by Organization Details LastModified Time None Recorded Payers Encounter Date Sequence Insurance Name Policy Number Policy Guo Covered Member ID Guo Member ID Guarantor Name 06/23/2024 2 [place] [id number] Nico Ashraf [id number] Nico Ashraf 06/23/2024 1 [place] [employer] Nico Ashraf [id number] Nico Ashraf Notes Date Note Type Note Provider Name and Address Organization Details Recorded Time 06/24/19 25 text/htm l Care Management - HyperlipidemiaReported bypatient.Control:usually well controlled; improving; at goal Complications:no coronary artery disease; no heart attack; no cardiovascular disease; no pancreatitis; no strokeCare Management - HypertensionReported bypatient.Self Care:not under emotional stress Severity:symptoms are improving; does not interfere with daily activities Associated Symptoms:no dizziness; no lightheadedness; no chest pain; no shortness of breath; no palpitations; no edema; no calf muscle cramps; no blurred vision; no confusion; no headaches; no fatigue here for rechk and is doing ok overall no major issuesno cp no sob Krishna Ghosh DO [address] [place], [address], [facility] 06/23/2024 13:41:47
--- OUTSIDE RECORDS SUMMARY | 2024-06-23 17:02 | XMS_ITS | Data Portability ---
Author Organization [facility] Address [address] [place] [address] Assessment Encounter Date Assessment Date Assessment LastModified by Organization Details LastModified Time 12/31/2022 12/31/2022 [address] [place] [address] ([facility] ARCHITECT) MDM MODERATE MUST MEET 2 OUT OF [...] EACH ELEMENT THAT IS COVERED Not available 12/31/2022 13:42:13 07/23/2023 07/23/2023 [id number] [place] [address] (UC ARCHITECT) MDM MODERATE MUST MEET 2 OUT OF [...] EACH ELEMENT THAT IS COVERED Not available 07/23/2023 14:07:30 07/26/2023 07/26/2023 [address] [place] [address] (UC ARCHITECT) : MDM LOW MUST MEET 2 OF 3 ELEMENTS: PROBLEMS, DATA OR RISK ELEMENT 1: PROBLEMS ADDRESSED (LOW): 2 OR MORE SELF-LIMITED OR MINOR PROBLEMS OR 1 STABLE CHRONIC ILLNESS OR 1 ACUTE UNCOMPLICATED ILLNESS OR INJURY ELEMENT 2: DATA TO BE REVISED AND ANALYZED (LOW) MUST MEET 1 OF 2 CATEGORIES: CATEGORY 1. REVIEW OF PRIOR EXTERNAL NOTES/RESULTS, ORDERING OF TEST(S) CATEGORY 2. ASSESSMENT REQUIRING INDEPENDENT HISTORIAN(S) INCLUDE WHO THE HISTORIAN IS AND RELATION TO PT AND WHY PT IS UNABLE TO GIVE COMPLETE HISTORY ELEMENT 3: RISK (LOW) RISK OF COMPLICATIONS AND/OR MORBIDITY OR MORTALITY OF PATIENT MANAGEMENT PROVIDER MUST THOROUGHLY DOCUMENT ALL OF THE ELEMENTS COVERED Not available 07/26/2023 12:08:52 01/01/2024 01/01/2024 [address] [place] [address] (UC ARCHITECT) MDM MODERATE MUST MEET 2 OUT OF [...] EACH ELEMENT THAT IS COVERED Not available 01/01/2024 13:51:59 06/23/2024 06/23/2024 [address] [place] [address] (UC ARCHITECT) MDM MODERATE MUST MEET 2 OUT OF [...] Last Modified Time Details Appointments FOLLOW UP 2024 01:30P M DR GHOSH Not available Not available Not available FOLLOW UP 15 [address] GHOSH Not available Not available Not available Lab hemoglobi n A1c, QN, blood 2024 025 [facility], [address] [place] [address], [address], 06/23/2024 13:51:40 CMP, serum or plasma 2024 025 [facility], [address] [place] [address], [address], 06/23/2024 13:51:40 CBC 2024 025 [facility], [address] [place] [address], [address], 06/23/2024 13:51:40 PSA, serum or plasma 2024 025 [facility], [address] [place] [address], [address], 06/23/2024 13:51:40 PSA, serum or plasma 2023 024 [facility], [place], [address], 07/23/2023 14:10:53 CBC w/ auto diff 2023 024 [facility], [place], [address], 07/23/2023 14:10:53 CMP, serum or plasma 2023 024 [facility], [place], [address], 07/30/2023 08:16:34 lipid panel, blood 2023 024 [facility], [place], [address], 07/30/2023 08:16:35 iron + total iron-bind ing capacity (TIBC), serum 2023 024 [facility], [place], [address], 07/23/2023 14:10:53 ferritin, serum or plasma 2023 024 [facility], [place], [address], 07/23/2023 14:10:54 Referral None recorded. Procedures None recorded. Surgeries None recorded. Imaging None recorded. Medication Orders diclofena c sodium 50 mg tablet,de layed release 2024 025 [facility], [address] [place] [address], [address], 06/23/2024 13:41:00 diclofena c sodium 50 mg tablet,de layed release 2022 023 [id number], [address], [place], [id number], 12/31/2022 13:48:43 Patient TargetsNo targets recorded. Patient Instructions Encounter Date Encounter Id Patient Instructions Last Modified By Organization Details Last Modified Time 07/23/2023 [id number] high blood pressure: care instructions Not available 07/23/2023 14:09:30 learning about high blood pressure Not available 07/23/2023 14:09:31 anemia: care instructions Not available 07/23/2023 14:09:31 01/01/2024 [id number] prediabetes: car e instructions Not available 01/01/2024 13:52:00 Reason for Referral None Reported. Results Created Date Observation Date Name Description Value Unit Range Abnormal Flag Note LastModifiedBy Organization Detail LastModifiedTime Result Notes None recorded. 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 8 09:59:37 Eczema 80270217 Active 2018 Krishna Ghosh DO [address] [place] [address], [address], 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 2 22:52:26 Pain of left shoulder joint 972523411871 01990 Active 2021 Krishna Ghosh, DO [address] [place] [address], [address], [facility] 2 09:03:36 Pneumonia 773673283 Active 2022 VICENTE OLIVEROS [address] [place] [address], [address], [facility] 3 09:12:34 Pneumonia caused by SARS-CoV- 2 939015460040 641159 Active 2022 VICENTE OLIVEROS [address] [place], [address], [facility] 3 09:13:05 Anemia 006085280 Active 2022 Krishna EdmondNicolette Ghosh DO [address] [place] [address], [address], 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 3 13:45:17 Problem Notes None recorded. Procedures Surgical History Date Name Laterality Status Provider Name and Address Organization Details Recorded Time 024 Corticosteroid Injection completed Krishna PruittNicolette Ghosh DO [address] [place] [address], [address], [facility] 07/26/2023 12:08:25 022 Corticosteroid Injection completed Krishna Ghosh DO [address] [place] [address], [address], [facility] 06/13/2021 14:03:18 Imaging Results None recorded. Procedure [...] and Address Organization Details Last Updated DateTime 3 172.72 cm 27.4 kg/m2 41385.6 3 g 66 /min 99 % 99 % 130 mm[Hg] 72 mm[Hg] Patricia Amato [facility] 3 13:30:33 Date Recorded Body height Body mass index (BMI) Body weight Heart rate Respiratory rate Oxygen saturation Oxygen saturation in Arterial blood by Pulse oximetry Systolic blood pressure Diastolic blood pressure Provider Name and Address Organization Details Last Updated DateTime 4 172.72 cm 27 kg/m2 31254 g 62 /min 16 /min 97 % 97 % 136 mm[Hg] 70 mm[Hg] Adama Lei [facility] 4 13:44:01 Date Recorded Body height Body mass index (BMI) Body weight Heart rate Oxygen saturation Oxygen saturation in Arterial blood by Pulse oximetry Systolic blood pressure Diastolic blood pressure Provider Name and Address Organization Details Last Updated DateTime 4 172.72 cm 25.4 kg/m2 22301.9 3 g 66 /min 97 % 97 % 126 mm[Hg] 60 mm[Hg] Adama Lei [facility] 4 13:40:36 Date Recorded Body height Body mass index (BMI) Body weight Heart rate Oxygen saturation Oxygen saturation in Arterial blood by Pulse oximetry Systolic blood pressure Diastolic blood pressure Provider Name and Address Organization Details Last Updated DateTime 5 172.72 cm 25.4 kg/m2 38710.9 3 g 77 /min 97 % 97 % 130 mm[Hg] 68 mm[Hg] Ana Lin [facility] 5 13:26:53 Social History Question Answer Notes LastModified by Organizat ion Details LastModified Time Tobacco Smoking Status Former Smoker Not Available [facility] 01/12/2020 03:36:24 What Was The Date Of [...] mcg/0.25mL dose 1 completed Krishna Ghosh DO [address] [place] [address], [address], [facility] 05/30/2021 14:08:20 COVID-19, mRNA, LNP-S, PF, 100 mcg/0.5mL dose or 50 mcg/0.25mL dose 1 completed Krishna Ghosh DO [address] [place] [address], [address], [facility] 05/30/2021 14:08:50 COVID-19, mRNA, LNP-S, PF, 100 mcg/0.5mL dose or 50 mcg/0.25mL dose 1 completed Krishna Ghosh DO [address] [place] [address], [address], [facility] 05/30/2021 14:08:35 influenza, unspecified formulation 4 completed Kae Coronado [facility] 12/17/2023 11:06:09 zoster, unspecified formulation 0 completed Krishna Ghosh DO [address] [place] [address], [address], [facility] 05/07/2019 14:20:31 Tdap 0 completed Krishna Ghosh DO [address] [place] [address], [address], [facility] 05/07/2019 14:21:39 Pneumococcal conjugate PCV 13 0 completed Krishna Ghosh DO [address] [place] [address], [address], [facility] 05/07/2019 14:22:22 Past Encounters Encounter ID Performer Location Encounter Start Date Encounter Closed Date Diagnosis/Indication Diagnosis SNOMED-CT Code Diagnosis ICD10 Code Diagnosis Note [id number] Krishna Ghosh [facility] [address] [facility] [facility] [place] [address] 11/15/2017 09:21:42 11/15/2017 10:59:14 Impaired fasting glycemia 868911589 R73.01 stable and without issues have orderd another a1c with next lab Essential hypertension 82969008 I10 bp stable although pulse is a bit slow rides his bike daily Neoplasm o f urinary bladder 985623890 D49.4 recent urine cytology is negative Lumbar arthritis 7955319 01 M46.96 using cannabis with his med card [id number] Krishna Ghosh [facility] [address] [facility] [facility] [place] [address] 04/18/2018 08:53:25 04/18/2018 09:42:05 Essential hypertension 59399399 I10 bp stable although pulse is a bit slow rides his bike daily Impaired f asting glycemia 413310835 R73.01 stable and without issues have orderd another a1c with next lab Hypercholesterolemia 136 90626 E78.00 stable and not having any issues with the lovastatin Abdominal aortic aneurysm screening 691382989 Z13.6 [id number] Krishna Ghosh [facility] [address] [facility] [facility] [place] [address] 10/15/2018 09:24:28 10/15/2018 10:15:52 Essential hypertension 36499814 I10 bp stable rides his bike daily Impaired f asting glycemia 519026697 R73.01 stable and without issues have orderd another a1c now but again he has not done lab as request will just order each time he comes Eczema 95426472 L30.9 [id number] Krishna Ghosh [facility] [address] [facility] [address] 05/06/2019 09:39:40 05/06/2019 10:41:26 Essential hypertension 72784726 I10 bp stable rides his bike daily Impaired f asting glycemia 458862565 R73.01 stable and without issues have orderd another a1c now but again he has not done lab as request will just order each time he comes Hypercholesterolemia 136 07390 E78.00 stable and not having any issues with the lovastatin Active or passive immunization 785155175 Z23 highly reccomende d i will send to delphine figueroa Lumbar arthritis 3122770 01 M46.96 using cannabis with his med card has worsening radiculopa thy will need a cane to assist with his ambulation as he is now a fall risk [id number] Krishna Ghosh DO [facility] [address] [facility], [place] [address] 10/14/2019 10:14:00 10/14/2019 10:59:15 Neoplasm of urinary bladder 536857138 D49.4 recent urine cytology is negative Hypercholesterolemia 136 90404 E78.00 stable and not having any issues with the lovastatin Impaired f asting glycemia 049427461 R73.01 stable and without issues have order another a1c now but again he has not done lab as request will just order each time he comes Essential hypertension 90385996 I10 bp stable and he still rides his bike daily or he is walking staying active 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 [id number] Krishna Ghosh DO [facility] [address] [facility], [place] [address] 06/22/2020 11:24:38 06/22/2020 12:43:36 Impaired fasting glycemia 852787780 R73.01 stable and without issues have order another a1c now but again he has not done lab as request will just order each time he comes Essential hypertension 80568944 I10 bp stable and he still rides his bike daily or he is walking staying active 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 Hypercholesterolemia 136 35251 E78.00 stable and not having any issues with the lovastatin [id number] Krishna Ghosh DO [facility] [address] [facility],[place] [address] 12/26/2020 14:24:08 12/26/2020 15:06:17 Lumbar arthritis 213376084 M46.96 we will try to get him some medication to use on a prn but he will let me know when he wants ithas worsening radiculopa thy will need a cane to assist with his ambulation as he is now a fall risk Essential hypertension 87760731 I10 bp stable and he still rides his bike daily or he is walking staying active works outside every day Eczema 01982126 L30.9 skin is dry uses mositurize r but eczema under control Impaired f asting glycemia 055141398 R73.01 a1c is 5.3 [id number] Krishna Ghosh DO [facility] [address] [facility] [address] 05/30/2021 14:02:41 05/30/2021 16:06:23 Hypercholesterolemia 60694526 E78.00 stable and not having any issues with the lovastatin Impaired f asting glycemia 453480550 R73.01 a1c is 5.3 Essential hypertension 39433029 I10 bp stable and he still rides his bike daily or he is walking staying active works outside every day Lumbar arthritis 2511571 01 M46.96 we will try to get him some medication to use on a prn but he will let me know when he wants ithas worsening radiculopa thy will need a cane to assist with his ambulation as he is now a fall risk Submandibu lar salivary gland swelling 720412884 K11.9 hopefully is just salivary swelling nontender so will get US first [id number] Krishna Ghosh DO [facility] [address] [facility],[place] [address] 06/13/2021 13:39:26 06/13/2021 14:34:25 Pain of left shoulder joint 8056979051 9650330 M25.512 known osteoarthr itis with very limited rom due to pain we will provide inj luis [id number] Krishna Ghosh DO [facility] [address] [facility],[place] [address] 07/04/2021 09:48:04 07/04/2021 10:31:54 Malignant lymphoma 438430932 C85.90 [id number] VICENTE OLIVEROS [facility] [address] [facility] [address] 03/15/2022 08:56:08 03/15/2022 10:41:18 Malignant lymphoma 888720039 C85.92 stable Pneumonia caused by SARS-CoV-2 2261577524 68631442 J12.82 recheck CXR for monitoring pna Neoplasm o f urinary bladder 416384692 C67.1 will f/u with urine sample, hasn't seen urology in at least a year [id number] Krishna Ghosh [facility] [address] [facility] [address] 04/02/2022 15:41:23 04/02/2022 16:17:00 Malignant lymphoma 376819132 C85.[address] dorsey and is followed no treatment right now until pt notices it bothers then they willgive him RT Essential hypertension 42847030 I10 bp stable and he still rides his bike daily or he is walking staying active works outside every day Impaired f asting glycemia 597489473 R73.01 a1c is 5.3 Hypercholesterolemia 136 06924 E78.00 stable and not having any issues with the lovastatin Neoplasm o f urinary bladder 469557507 C67.1 recent urine cytology is negative Lumbar arthritis 0306900 01 M46.96 we will try to get him some medication to use on a prn but he will let me know when he wants ithas worsening radiculopa thy will need a cane to assist with his ambulation as he is now a fall risk Anemia 325135285 D64.9 [id number] Krishna Ghosh DO [facility] [address] [facility] [address] 07/11/2022 13:47:04 07/11/2022 15:36:01 Essential hypertension 40791549 I10 bp stable and he still rides his bike daily or he is walking staying active works outside every day Malignant lymphoma [address] [address] dorsey and is followed no treatment right now until pt notices it bothers then they willgive him RThe will be seen on august 09 and lab prior Neoplasm o f urinary bladder 656842858 C67.1 recent urine cytology is negative [id number] Krishna Ghosh [facility] [address] [facility],[place] [address] 12/31/2022 13:23:20 12/31/2022 14:05:19 Essential hypertension 13925137 I10 bp stable and he still rides his bike daily or he is walking staying active works outside every day Hypercholesterolemia 136 12584 E78.00 stable and not having any issues with the lovastatin Neoplasm o f urinary bladder 037881156 C67.1 recent urine cytology is negative and he remains currently free of ca Marginal z one lymphoma 216490930 C83.[address] maria and has been doing well RT will be started at some point too Lumbar arthritis 7228782 01 M46.96 we will try to get him some medication to use on a prn but he will let me know when he wants ithas worsening radiculopa thy will need a cane to assist with his ambulation as he is now a fall riskwe will have him try diclofenac 50 bid [id number] Krishna Ghosh [facility] [address] [facility], [place] [address] 07/23/2023 13:39:02 07/23/2023 14:17:46 Essential hypertension 43337167 I10 bp stable and he still rides his bike daily or he is walking staying active works outside every day Hypercholesterolemia 136 29943 E78.00 stable and not having any issues with the lovastatin Marginal z one lymphoma 461050182 C83.[address] maria and has been doing well RT will be started at some point too Anemia 531961141 D64.9 no evidence right now as of 1 month ago will rechk in the fall Neoplasm o f urinary bladder 351951600 C67.1 recent urine cytology is negative and he remains currently free [place] [id number] Krishna Ghosh [facility] [address] [facility] [address], [place] [address] 07/26/2023 10:53:42 07/29/2023 09:42:59 Pain of left shoulder joint 0955930699 2134034 M25.512 known osteoarthr itis with very limited rom due to pain we will provide inj luis [id number] Krishna Ghosh [facility] [address] [facility],[place] [address] 01/01/2024 13:31:17 01/01/2024 14:02:46 Depression screening 099149427 Z13.31 neg Impaired f asting glycemia 058036570 R73.01 a1c is 5.3 Lumbar arthritis 0586852 01 M46.96 we will try to get him some medication to use on a prn but he will let me know when he wants ithas worsening radiculopa thy will need a cane to assist with his ambulation as he is now a fall risk we will have him try diclofenac 50 bid Marginal z one lymphoma 516206436 C83.[address] maria and has been doing well RT will be started at some point toowill be sending him the results of the lab cbc shows hgb down to 11 [id number] Krishna Ghosh [facility] [address] [facility] [address] 06/23/2024 13:15:17 06/23/2024 14:21:43 Essential hypertension 04800374 I10 here for bp doing ok overall Hypercholesterolemia 136 14655 E78.00 stable and not having any issues with the lovastatin Impaired f asting glycemia 111299775 R73.01 a1c is 5.3 Depression screening 171 308192 Z13.31 neg Lumbar arthritis 0025105 01 M46.96 we will try to get [...] by Organization Details LastModified Time None Recorded Advance Directives Directive None Recorded Payers Encounter Date Sequence Insurance Name Policy Number Policy Guo Covered Member ID Guo Member ID Guarantor Name 12/31/2022 2 [place] [id number] Nico Ashraf [id number] Nico Ashraf 12/31/2022 1 [place] Nico Ashraf [id number] Nico Ashraf 07/23/2023 2 [place] [id number] Nico Ashraf [id number] Nico Ashraf 07/23/2023 1 [place] [facility]MENT SERVICES Nico Ashraf [id number] Nico Ashraf 07/26/2023 2 [place] [id number] Nico Ashraf [id number] Nico Ashraf 07/26/2023 1 [place] [facility] Nico Ashraf [id number] 3 Nico Ashraf 01/01/2024 2 [place] [id number] Nico Terryuk [id number] Nico Ashraf 01/01/2024 1 [place] [facility] Nico Ashraf [id number] 3 Nico Ashraf 06/23/2024 2 [place] [id number] Nico Ashraf [id number] Nico Ashraf 06/23/2024 1 [place] [facility] Nico Ashraf [id number] 3 Nico Ashraf Notes Date Note Type Note Provider Name and Address Organization Details Recorded Time 01/01/20 text/htm l here fopr rechk and is doing ok overallrelates that he was exposed [place] in [facility] [place] the bladder cancer could certainly be part of itstating that the arthritis is becoming a big problem and is having an issue with his daily acitivity Krishna Ghosh, DO [address] [facility], [place], [address], [facility] 12/31/2022 13:49:37 07/23/19 text/htm l Care Management - HypertensionReported bypatient.Self Care:not under emotional stress Severity:symptoms are improving; does not interfere with daily activities Associated Symptoms:no dizziness; no lightheadedness; no chest pain; no shortness of breath; no palpitations; no edema; no calf muscle cramps; no blurred vision; no confusion; no headaches; no fatigue here for rechk and is doing wellno major issues notednot having any cp or sobstill riding bike and walking dailyno fevers eating well sleep ok bowels good Krishna Ghosh DO [address] [place], [address], [facility] 07/23/2023 14:10:31 07/26/19 24 text/htm l here for his left shoulder cor t inj very sore hard to move Krishna Ghosh DO [address] [place], [address], [facility] 07/26/2023 12:09:17 01/01/20 24 text/htm l here for rechk and is feeling well denies any new changes or painfeels the same appetite is goodsleep is okbowels the same no bleed Krishna Ghosh DO [address] [place], [address], [facility] 01/01/2024 13:54:01 06/24/19 25 text/htm l Care Management - [...] cp no sob Krishna Ghosh DO [address] [place], [address], [facility] 06/23/2024 13:41:47
--- OUTSIDE RECORDS SUMMARY | 2024-06-23 17:02 | XMS_ITS | Continuity of Care Document ---
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 It does not include entries that were removed or entered in error. 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 Medication Details Route Status Patient Instructions Prescription Expires Prescription Number Last Dispense Date Ordering Provider Order Date Order Qty Source ASPIRIN 81MG TAB,EC TAKE ONE TABLET BY MOUTH AT BEDTIME ORAL ACTIVE VIRA ,[facility] Pop [facility] CARBOXYMETH YLCELLULOSE NA 0.5% SOLN,OPH INSTILL 1 DROP INTO EACH EYE FOUR TIMES DAILY NEEDED FOR DRY EYE OPHTHA LMIC ACTIVE 03/24/2025 [id number] 5 Edmond [place] NDREW E 2024 15 [facility] IBUPROFEN TAB TAKE BY MOUTH NEEDED ORAL ACTIVE VANWAGNER ,MARIE Pop [facility] LOVASTATIN 10MG TAB TAKE ONE TABLET BY MOUTH AT BEDTIME ORAL ACTIVE VANWAGN ,MARIE Pop 2011 [facility] TERAZOSIN HCL 5MG CAP TAKE 1 CAPSULE BY MOUTH AT BEDTIME [facility] TIMOLOL MALEATE 0.5% SOLN,OPH INSTILL 1 DROP INTO EACH EYE EVERY MORNING FOR INCREASE D PRESSURE IN THE EYE OPHTHA LMIC DISCONT INUED 04/07/2024 [id number] 4 Edmond [place] NDREW E 2023 5 [facility] [place] TIMOLOL MALEATE 0.5% SOLN,OPH INSTILL 1 DROP INTO EACH EYE EVERY MORNING FOR INCREASE D PRESSURE IN THE EYE OPHTHA LMIC 06/21/2024 [id number] 5 Edmond AUSITN NDREW E 2024 5 [facility] TIMOLOL MALEATE 0.5% SOLN,OPH INSTILL 1 DROP INTO EACH EYE EVERY MORNING OPHTHA LMIC 07/10/2023 [id number] 4 Edmond [place] NDREW E 2022 10 [facility] Immunizations Combined list of available immunizations from the Department of Defense and Veterans Affairs facilities. 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 PNEUMOCOCCAL CONJUGATE PCV20, POLYSACCHARID E [id number] CONJUGATE, ADJUVANT, PF 2022 MARÍA ARCE HY E RIGHT DELTO ID [id number] 216 complet ed [facility] COVID-19 (MODERNA), MRNA, LNP-S, PF, 100 MCG OR 50 MCG DOSE 3 2020 207 complet ed MOD; [id number]; 2 [facility] COVID-19 (MODERNA), MRNA, LNP-S, PF, 100 MCG/0.5 ML DOSE 2 2020 207 complet ed MOD; [id number]; 1 [facility] COVID-19 (MODERNA), MRNA, LNP-S, PF, 100 MCG/0.5 ML DOSE 1 2020 207 complet ed MOD; [id number]; 1 [facility] [place] INFLUENZA, SEASONAL, INJECTABLE 2016 141 complet ed Site: Left Deltoid [facility] FLU,3 YRS (HISTORICAL) 2015 88 complet ed [facility] [place] FLU,3 YRS (HISTORICAL) 2013 88 complet ed [facility] DTAP, UNSPECIFIED FORMULATION 2012 107 complet ed Site: Right Deltoid [place] [facility] PNEUMOCOCCAL, UNSPECIFIED FORMULATION 2010 109 complet ed [facility] [place] [facility] Encounters Combined list of: 1) Encounters from Department of Veterans Affairs facilities going backup to the last 18 months, not all VA inpatient encounters are included; 2) Encounters from the Department of Defense facilities going backup to 280 months. Location Location Details Encounter Type Encounter Number Reason For Visit Attending Provider ADM Date DC Date Status Disposition Source [facility] Outpatient Encounter [id number] 12/28 [facility]counter [id number] 01/01 [facility]counter [id number] 01/01 [facility] Out[facility]counter [id number] 11/21 [facility] [id number] 12/03 [facility]counter [id number] [facility] En[facility] [id number] [facility] En[facility] [id number] 01/07 [facility] En[facility] [id number] 01/15 [facility] FALL RISK ASSESSMENT DOCD [id number] Diagnos is: ICD-10- CM H54.8 Legal blindne ss, as defined in [place] RENATA BUENO 01/28 [facility] En[facility] [id number] 01/29 [facility] OFFICE O/P EST HI 40 MIN [id number] Diagnos is: ICD-10- CM H54.8 Legal blindne ss, as defined in [place] JULISA SENIOR 02/12 [facility] [place]PRE [place]AM [place] 1/ [id number] Diagnos is: ICD-10- CM H35.322 3 Exudati ve age-rel mclr degn, left eye, with inactiv e scar TRAE AUSTIN E 03/23 [facility] CPTRZD OPH DX IMG PST SGM ON 1. Diagnos is: ICD-10- CM H40.113 1 Primary open-an gle glaucom a, bilater al, mild stage TRAE AUSTIN E 03/23 [facility] Outpatient Encounter [id number] 05/27 [place] [facility] [place] Social History Combined list of available smoking, tobacco, and other social history from Department of Defense and Veterans Affairs facilities. Social History Type Response Date Comment Sourc e Tobacco smoking status LAIS VA-TOBACCO FORMER USER 11/22/2022 [facility] History of tobacco use VA-TOBACCO QUIT 15 YRS OR MORE 11/22/2022 [facility] [place] [facility] History of tobacco use QUIT TOBACCO USE > 7 YEARS AGO 12/21/2016 [facility] History of tobacco use QUIT TOBACCO USE > 7 YEARS AGO 12/12/2015 [facility] History of tobacco use QUIT TOBACCO USE > 7 YEARS AGO 02/29/2012 [facility] [place] [facility] Plan of Care List of future care activities from Department of Veterans Affairs facilities. Additional future care activities may be listed in the Assessment and Plan section. Date/Time Care Activity Care Activity Detail Facili ty 10/05/2024 AMBULATORY - MEDICINE [facility]
[2024-06-23 18:43] LABS: Alanine Aminotransferase 20 U/L (0-40); Albumin Level 3.7 g/dL (3.5-5.0); Alkaline Phosphatase 109 U/L (39-117); Anion Gap 14 (12-20); Aspartate Amino Transferase 36 U/L (5-37); Bilirubin Total 0.3 mg/dL (0.0-1.0); Blood Urea Nitrogen 31 mg/dL (9-16); Carbon Dioxide 26 mmol/L (22-29); Chloride 110 mmol/L (96-108); Estimated Glomerular Filt Rate 46; Glucose Random 103 mg/dL (60-115); Potassium 4.8 mmol/L (3.3-5.1); Sodium 145 mmol/L (135-145); Total Protein 6.1 g/dL (6.5-8.0)
[2024-06-23 18:49] LABS: Hematocrit 35.8 % (42.0-52.0); Hemoglobin 11.8 g/dl (14.0-18.0); Mean Corpuscular Hemoglobin 29.6 pg (27.0-33.0); Mean Corpuscular Volume 89.9 fL (80.0-98.0); Mean Platelet Volume 10.4 fL (9.4-12.4); Platelet Count 231 X10*3/uL (160-400); Red Blood Count 3.98 X10*6/uL (4.60-5.80)
[2024-06-23 18:52] LABS: WBC ABN SCTR FOR CBC 1; White Blood Count 16.6 X10*3/uL (4.8-10.8)
[2024-06-23 18:58] LABS: Prostate Specific Antigen 1.75 ng/mL (<0.05-4.0)
[2024-06-23 20:12] LABS: Lymphocytes Absolute Manual 6.6 X10*3/uL (1.2-4.9); Lymphocytes Percent Manual 40 % (20-40); Monocytes Percent Manual 6 % (2-11); Neutrophils Percent Manual 54 % (45-73)
[2024-06-23 20:16] LABS: Platelet Estimate NORMAL (NORMAL); Platelet Morphology Comment NORMAL; RBC Morphology NORMAL
[2024-06-23 20:36] LABS: Band Neutrophils Percent 0 % (3-5)
[2024-06-24 07:10] LABS: Estimated Average Glucose 123 mg/dL; Hemoglobin A1c % 5.9 % (<6.0); Total Hemoglobin (HGBA1C) 3161.9069 umol/L
== END 2024-06-23 13:50 | disposition home or self-care (01) ==
LOC: HO.MANLDS 13:49
PROVIDERS: Visit Provider Internal Medicine
DX: Z12.5 Encounter for screening for malignant neoplasm of prostate (principal); I10 Essential (primary) hypertension; R73.01 Impaired fasting glucose
CPT/HCPCS: 36415; 80053; 83036; 84153; 85007; 85027

== ENCOUNTER 2024-06-30 11:02 | Outpatient (REF) | payer MEDICARE, SELFPAY ==
--- OUTSIDE RECORDS SUMMARY | 2024-06-30 13:12 | XMS_ITS | Continuity of Care Document ---
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 Role Phone [facility] Unavailable Unavailable Problems Combined list of problems [...] [facility] [place] (SNOMED [place] [id number]) Active Condition [facility] [...] BEDTIME ORAL ACTIVE [facility]IR[facility] ,[facility] CARBOXYMETH YLCELLULOSE NA 0.5% SOLN,OPH INSTILL 1 DROP INTO EACH EYE FOUR TIMES DAILY NEEDED FOR DRY EYE OPHTHA LMIC ACTIVE 03/24/2025 [id number] 5 [place] NDREW E 2024 15 [facility] IBUPROFEN TAB TAKE BY MOUTH NEEDED ORAL ACTIVE VANWAGNER ,MARIE Pop 2011 [facility] LOVASTATIN 10MG TAB TAKE ONE TABLET BY MOUTH AT BEDTIME ORAL ACTIVE VANWAGN ,MARIE Pop 2011 [facility] TERAZOSIN HCL 5MG CAP TAKE 1 CAPSULE BY MOUTH AT BEDTIME [facility] Pop 2011 [facility] TIMOLOL MALEATE 0.5% SOLN,OPH INSTILL 1 DROP INTO EACH EYE EVERY MORNING FOR INCREASE D PRESSURE IN THE EYE OPHTHA LMIC DISCONT INUED 04/07/2024 [id number] 4 [place]mond [place] NDREW E 2023 5 [facility] [place] TIMOLOL MALEATE 0.5% SOLN,OPH INSTILL 1 DROP INTO EACH EYE EVERY MORNING FOR INCREASE D PRESSURE IN THE EYE OPHTHA LMIC 06/21/2024 [id number] 5 [place] NDREW E 2024 5 [facility] TIMOLOL MALEATE 0.5% SOLN,OPH INSTILL 1 DROP INTO EACH EYE EVERY MORNING OPHTHA LMIC 07/10/2023 [id number] 4 [place] NDREW E 2022 10 [facility] Immunizations Combined list of available immunizations from the Department of Defense and Veterans Affairs facilities. 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 Comments Source INFLUENZA, HIGH-DOSE, QUADRIVALENT 2022 MARÍA ARCE HY E LEFT DELTO ID [id number] A 197 complet ed [facility] PNEUMOCOCCAL CONJUGATE PCV20, POLYSACCHARID E [id number] CONJUGATE, ADJUVANT, PF 2022 MARÍA ARCE HY E RIGHT DELTO ID [id number] 216 complet ed [facility] [place] COVID-19 (MODERNA), MRNA, LNP-S, PF, 100 MCG OR 50 MCG DOSE 3 2020 207 complet ed MOD; [id number]; 2 [facility] COVID-19 (MODERNA), MRNA, LNP-S, PF, 100 MCG/0.5 ML DOSE 2 2020 207 complet ed MOD; [id number]; 1 [facility] COVID-19 (MODERNA), MRNA, LNP-S, PF, 100 MCG/0.5 ML DOSE 1 2020 207 complet ed MOD; [id number]; 1 [facility] [place] INFLUENZA, SEASONAL, INJECTABLE 2016 141 complet ed Site: Left Deltoid [facility] FLU,3 YRS (HISTORICAL) 2015 88 complet ed [place] [facility] [place] [facility] FLU,3 YRS (HISTORICAL) 2013 88 complet ed [facility] DTAP, UNSPECIFIED FORMULATION 2012 107 complet ed Site: Right Deltoid [facility] PNEUMOCOCCAL, UNSPECIFIED FORMULATION 2010 109 complet ed [facility] [place] Encounters Combined list of: 1) Encounters [...] [facility] Out[facility] Encounter [id number] 12/28 [facility] En[facility] [id number] 01/01 [facility] En[facility] [id number] 01/01 [facility] En[facility] [id number] 11/21 [facility] Encounter [id number] 12/03 [facility] Encounter [id number] [facility] Out[facility] Encounter [id number] [facility] Encounter [id number] 01/07 [facility] Out[facility] Encounter [id number] 01/15 [facility] FALL RISK ASSESSMENT DOCD [id number] Diagnos is: ICD-10- CM H54.8 Legal blindne ss, as defined in [place] RENATA BUENO 01/28 [facility] Out[facility] En[facility] [id number] 01/29 [facility] [place] [place] OFFICE O/P EST HI 40 MIN [id number] Diagnos is: ICD-10- CM H54.8 Legal blindne ss, as defined in [place] JULISA SENIOR 02/12 [facility] [place] [facility] [place] COMPRE OPH EXAM EST PT 1/ [id number] Diagnos is: ICD-10- CM H35.322 3 Exudati ve age-rel mclr degn, left eye, with inactiv e scar TRAE AUSTIN E 03/23 [facility] [place] [facility] CPTRZD OPH DX IMG PST SGM ON 1. Diagnos is: ICD-10- CM H40.113 1 Primary open-an gle glaucom a, bilater al, mild stage TRAE AUSTIN E 03/23 [facility] [place] [facility] Outpatient Encounter [id number] 05/27 [place] [facility] [place] [facility] Social History Combined list of available smoking, tobacco, and other social history from Department of Defense and Veterans Affairs facilities. Social History Type Response Date Comment Sourc e Tobacco smoking status MSIS VA-TOBACCO FORMER USER 11/22/2022 [facility] [place] [facility] History of tobacco use VA-TOBACCO QUIT 15 YRS OR MORE 11/22/2022 [place] [facility] [place] [facility] History of tobacco use QUIT TOBACCO USE > 7 YEARS AGO 12/21/2016 [facility] [place] [facility] History of tobacco use QUIT TOBACCO USE > 7 YEARS AGO 12/12/2015 [facility] [place] [facility] History of tobacco use QUIT TOBACCO USE > 7 YEARS AGO 02/29/2012 [place] [facility] [place] [facility] Plan of Care List of future care activities from Department of Veterans Affairs facilities. Additional future care activities may be listed in the Assessment and Plan section. Date/Time Care Activity Care Activity Detail Facili ty 10/05/2024 AMBULATORY - MEDICINE AM[facility]ULATORY - MEDICI [facility]
--- OUTSIDE RECORDS SUMMARY | 2024-06-30 13:12 | XMS_ITS | Data Portability ---
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) : MDM LOW MUST MEET 2 OF [...] COVERED Not available 07/26/2023 12:08:52 01/01/2024 01/01/2024 [id number] [place] [address] (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) MDM MODERATE MUST MEET 2 OUT OF [...] COVERED Not available 01/01/2024 13:51:59 06/23/2024 06/23/2024 [address] [place] [address] (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) MDM MODERATE MUST MEET 2 OUT OF [...] hemoglobi n A1c, QN, blood 2024 025 [facility], [address] [place] [address], [id number], 06/24/2024 12:12:10 CMP, serum or plasma 2024 025 [facility], [address] [place] [address], [address], 06/24/2024 12:12:10 CBC 2024 025 [facility], [address] [place] [address], [id number], 06/24/2024 12:12:10 PSA, serum or plasma 2024 025 [facility], [address] [place] [address], [id number], 06/23/2024 13:51:40 PSA, serum or plasma 2023 024 [facility], [place], [address], 07/23/2023 14:10:53 CBC w/ auto diff 2023 024 [facility], [place], [address], 07/23/2023 14:10:53 CMP, serum or plasma 2023 024 [facility], [place], [address], 07/30/2023 08:16:34 lipid panel, blood 2023 024 [facility], [place], [address], 07/30/2023 08:16:35 iron + total iron-bind ing capacity (TIBC), serum 2023 024 [facility] [place], [address], 07/23/2023 14:10:53 ferritin, serum or plasma 2023 024 [facility], [place], [address], 07/23/2023 14:10:54 Referral None recorded. Procedures None recorded. Surgeries None recorded. Imaging None recorded. Medication Orders diclofena c sodium 50 mg tablet,de layed release [address] [facility], [address] [place] [address], [id number], 06/23/2024 13:41:00 diclofena c sodium 50 mg tablet,de layed release 2022 023 [id number], [address] [place] [address], [place], [id number], 12/31/2022 13:48:43 Patient TargetsNo targets recorded. Patient Instructions Encounter Date Encounter Id Patient Instructions Last Modified By Organization Details Last Modified Time 07/23/2023 [id number] high blood pressure: care instructions Not available 07/23/2023 14:09:30 learning about high blood pressure Not available 07/23/2023 14:09:31 anemia: care instructions Not available 07/23/2023 14:09:31 01/01/2024 [id number] prediabetes: car e instructions Not available 01/01/2024 13:52:00 Reason for Referral None Reported. Results Created Date Observation Date Name Description Value Unit Range Abnormal Flag Note LastModifiedBy Organization Detail LastModifiedTime Result Notes None recorded. Problems Name Problem SNOMED Code Status Onset Date Resolution Date Notes Provider Name and Address Organization Details Recorded Time Essential hypertens ion 11018534 Active 2017 [facility] 8 08:17:43 Hyperchol esterolem ia 00466229 [facility] 08:18[facility] Neoplasm of urinary bladder 022780762 [facility] 08:18[facility]17 Impaired fasting glycemia 059031425 [facility] 08:19[facility]02 Lumbar arthritis 490789629 Active 2017 Krishna Ghosh DO [address] [place] [address], [address], [facility] 8 09:59:37 Eczema 69866912 Active 2018 Krishna Ghosh DO [address] [place] [address], [phone], [facility] 9 09:33:29 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 Krishna Ghosh DO [address] [place] [address], [address], [facility] 2 22:52:26 Pain of left shoulder joint 995151274880 37927 Active 2021 Krishna Ghosh DO [address] [place] [address], [address], [facility] 2 09:03:36 Pneumonia 828553297 Active 2022 VICENTE OLIVEROS [address] [place] [address], [address], [facility] 3 09:12:34 Pneumonia caused by SARS-CoV- 2 759546467615 578417 Active 2022 VICENTE OLIVEROS [address] [place] [address], [address], [facility] 3 09:13:05 Anemia 083752264 Active 2022 Krishna PruittNicolette Ghosh DO [address] [place], [address], [facility] 3 16:13:36 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 Procedures Surgical History Date Name Laterality Status Provider Name and Address Organization Details Recorded Time 024 Corticosteroid Injection completed Krishna Israelanthony [address] [place] [address], [address], [facility] 07/26/2023 12:08:25 022 Corticosteroid Injection completed Krishna GhoshDO [address] [place] [address], [address], [facility] 06/13/2021 14:03:18 Imaging Results None recorded. Procedure [...] Updated DateTime 3 172.72 cm 27.4 kg/m2 85872.6 3 g 66 /min 99 % 99 % 130 mm[Hg] 72 mm[Hg] Patricia Lm [facility] 3 13:30:33 Date Recorded Body height Body mass index (BMI) Body weight Heart rate Respiratory rate Oxygen saturation Oxygen saturation in Arterial blood by Pulse oximetry Systolic blood pressure Diastolic blood pressure Provider Name and Address Organization Details Last Updated DateTime 4 172.72 cm 27 kg/m2 62112 g 62 /min 16 /min 97 % 97 % 136 mm[Hg] 70 mm[Hg] Adama Lei [facility] 4 13:44:01 Date Recorded Body height Body mass index (BMI) Body weight Heart rate Oxygen saturation Oxygen saturation in Arterial blood by Pulse oximetry Systolic blood pressure Diastolic blood pressure Provider Name and Address Organization Details Last Updated DateTime 4 172.72 cm 25.4 kg/m2 13240.9 3 g 66 /min 97 % 97 % 126 mm[Hg] 60 mm[Hg] Adama Lei [facility] 4 13:40:36 Date Recorded Body height Body mass index (BMI) Body weight Heart rate Oxygen saturation Oxygen saturation in Arterial blood by Pulse oximetry Systolic blood pressure Diastolic blood pressure Provider Name and Address Organization Details Last Updated DateTime 5 172.72 cm 25.4 kg/m2 00041.9 3 g 77 /min 97 % 97 % 130 mm[Hg] 68 mm[Hg] Ana Lin [facility] 5 13:26:53 Social History Question [...] mcg/0.25mL dose 1 completed Krishna Ghosh DO [address] [place] [address], [address], [facility] 05/30/2021 14:08:20 COVID-19, mRNA, LNP-S, PF, 100 mcg/0.5mL dose or 50 mcg/0.25mL dose 1 completed Krishna Ghosh DO [address] [place] [address], [address], [facility] 05/30/2021 14:08:50 COVID-19, mRNA, LNP-S, PF, 100 mcg/0.5mL dose or 50 mcg/0.25mL dose 1 completed Krishna Ghosh DO [address] [place] [address], [address], [facility] 05/30/2021 14:08:35 influenza, unspecified formulation 4 completed [facility] 12/17/2023 11:06:09 zoster, unspecified formulation 0 completed Krishna Ghosh DO [address] [place] [address], [address], [facility] 05/07/2019 14:20:31 Tdap 0 completed Krishna Ghosh DO [address] [place] [address], [address], [facility] 05/07/2019 14:21:39 Pneumococcal conjugate PCV 13 0 completed Krishna Ghosh DO [address] [place] [address], [address], [facility] 05/07/2019 14:22:22 Past Encounters Encounter ID Performer Location Encounter Start Date Encounter Closed Date Diagnosis/Indication Diagnosis SNOMED-CT Code Diagnosis ICD10 Code Diagnosis Note [id number] Krishna Ghosh [facility] [address] [facility], [employer] [facility] [place] [address] 11/15/2017 09:21:42 11/15/2017 10:59:14 Impaired fasting glycemia 502694044 R73.01 stable and without issues have orderd another a1c with next lab Essential hypertension 51979264 I10 bp stable although pulse is a bit slow rides his bike daily Neoplasm o f urinary bladder 744735810 D49.4 recent urine cytology is negative Lumbar arthritis 6345034 01 M46.96 using cannabis with his med card [id number] Krishna Ghosh [facility] [address] [facility], [employer] [facility] [place] [address] 04/18/2018 08:53:25 04/18/2018 09:42:05 Essential hypertension 59763112 I10 bp stable although pulse is a bit slow rides his bike daily Impaired f asting glycemia 822090927 R73.01 stable and without issues have orderd another a1c with next lab Hypercholesterolemia 136 32144 E78.00 stable and not having any issues with the lovastatin Abdominal aortic aneurysm screening 779953317 Z13.6 [id number] Krishna Ghosh [facility] [address] [facility], [employer] [facility] [place] [address] 10/15/2018 09:24:28 10/15/2018 10:15:52 Essential hypertension 27501503 I10 bp stable rides his bike daily Impaired f asting glycemia 438725669 R73.01 stable and without issues have orderd another a1c now but again he has not done lab as request will just order each time he comes Eczema 02943390 L30.9 [id number] Krishna Ghosh [facility] [address] [facility], [employer] [facility] [place] [address] 05/06/2019 09:39:40 05/06/2019 10:41:26 Essential hypertension 83531564 I10 bp stable rides his bike daily Impaired f asting glycemia 976166325 R73.01 stable and without issues have orderd another a1c now but again he has not done lab as request will just order each time he comes Hypercholesterolemia 136 80457 E78.00 stable and not having any issues with the lovastatin Active or passive immunization 682378251 Z23 highly reccomende d i will send to delphine figueroa Lumbar arthritis 5400526 01 M46.96 using cannabis with his med card has worsening radiculopa thy will need a cane to assist with his ambulation as he is now a fall risk [id number] Krishna Ghosh DO [facility] [address] [facility],[place] [address] 10/14/2019 10:14:00 10/14/2019 10:59:15 Neoplasm of urinary bladder 538255979 D49.4 recent urine cytology is negative Hypercholesterolemia 136 99247 E78.00 stable and not having any issues with the lovastatin Impaired f asting glycemia 423064916 R73.01 stable and without issues have order another a1c now but again he has not done lab as request will just order each time he comes Essential hypertension 41675872 I10 bp stable and he still rides his bike daily or he is walking staying active 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 [id number] Krishna Ghosh DO [facility] [address] [facility],[employer] [place] [address] 06/22/2020 11:24:38 06/22/2020 12:43:36 Impaired fasting glycemia 676731457 R73.01 stable and without issues have order another a1c now but again he has not done lab as request will just order each time he comes Essential hypertension 27498757 I10 bp stable and he still rides his bike daily or he is walking staying active 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 [address] 12/26/2020 14:24:08 12/26/2020 15:06:17 Lumbar arthritis 833465907 M46.96 we will try to get him some medication to use on a prn but he will let me know when he wants ithas worsening radiculopa thy will need a cane to assist with his ambulation as he is now a fall risk Essential hypertension 32954725 I10 bp stable and he still rides his bike daily or he is walking staying active works outside every day Eczema 35944830 L30.9 skin is dry uses mositurize r but eczema under control Impaired f asting glycemia 833760156 R73.01 a1c is 5.3 [id number] Krishna Ghosh DO [facility] [address] [facility] [address] [address] 05/30/2021 14:02:41 05/30/2021 16:06:23 Hypercholesterolemia 21008377 E78.00 stable and not having any issues with the lovastatin Impaired f asting glycemia 557183812 R73.01 a1c is 5.3 Essential hypertension 55606661 I10 bp stable and he still rides his bike daily or he is walking staying active works outside every day Lumbar arthritis 6152830 01 M46.96 we will try to get him some medication to use on a prn but he will let me know when he wants ithas worsening radiculopa thy will need a cane to assist with his ambulation as he is now a fall risk Submandibu lar salivary gland swelling 853525771 K11.9 hopefully is just salivary swelling nontender so will get US first [id number] Krishna Ghosh DO [facility] [address] [facility],[place] [address] 06/13/2021 13:39:26 06/13/2021 14:34:25 Pain of left shoulder joint 6224211864 9045016 M25.512 known osteoarthr itis with very limited rom due to pain we will provide inj luis [id number] Krishna Ghosh [facility] [address] [facility],[place] [address] 07/04/2021 09:48:04 07/04/2021 10:31:54 Malignant lymphoma 280288277 C85.90 [id number] VICENTE OLIVEROS [facility] [address] [facility],[place] [address] 03/15/2022 08:56:08 03/15/2022 10:41:18 Malignant lymphoma 099136614 C85.92 stable Pneumonia caused by SARS-CoV-2 3957755403 28981152 J12.82 recheck CXR for monitoring pna Neoplasm o f urinary bladder 816124749 C67.1 will f/u with urine sample, hasn't seen urology in at least a year [id number] Krishna Ghosh [facility] [address] [facility],[place] [address] 04/02/2022 15:41:23 04/02/2022 16:17:00 Malignant lymphoma 061212654 C85.[address] dorsey and is followed no treatment right now until pt notices it bothers then they willgive him RT Essential hypertension 23340423 I10 bp stable and he still rides his bike daily or he is walking staying active works outside every day Impaired f asting glycemia 429859475 R73.01 a1c is 5.3 Hypercholesterolemia 136 48951 E78.00 stable and not having any issues with the lovastatin Neoplasm o f urinary bladder 633717884 C67.1 recent urine cytology is negative Lumbar arthritis 8815174 01 M46.96 we will try to get him some medication to use on a prn but he will let me know when he wants ithas worsening radiculopa thy will need a cane to assist with his ambulation as he is now a fall risk Anemia 035472401 D64.9 [id number] Krishna Ghosh [facility] [address] [facility],[place] [address] 07/11/2022 13:47:04 07/11/2022 15:36:01 Essential hypertension 88804418 I10 bp stable and he still rides his bike daily or he is walking staying active works outside every day Malignant lymphoma [address] [address] dorsey and is followed no treatment right now until pt notices it bothers then they willgive him RThe will be seen on august 09 and lab prior Neoplasm o f urinary bladder 932618528 C67.1 recent urine cytology is negative [id number] Krishna Ghosh [facility] [address] [facility] [place] [address] 12/31/2022 13:23:20 12/31/2022 14:05:19 Essential hypertension 37005559 I10 bp stable and he still rides his bike daily or he is walking staying active works outside every day Hypercholesterolemia 136 59663 E78.00 stable and not having any issues with the lovastatin Neoplasm o f urinary bladder 493483796 C67.1 recent urine cytology is negative and he remains currently free of ca Marginal z one lymphoma 680396820 C83.[address] maria and has been doing well RT will be started at some point too Lumbar arthritis 3194251 01 M46.96 we will try to get him some medication to use on a prn but he will let me know when he wants ithas worsening radiculopa thy will need a cane to assist with his ambulation as he is now a fall riskwe will have him try diclofenac 50 bid [id number] Krishna Ghosh [facility] [address] [place] [address] 07/23/2023 13:39:02 07/23/2023 14:17:46 Essential hypertension 49625181 I10 bp stable and he still rides his bike daily or he is walking staying active works outside every day Hypercholesterolemia 136 25312 E78.00 stable and not having any issues with the lovastatin Marginal z one lymphoma 033939984 C83.[address] maria and has been doing well RT will be started at some point too Anemia 720914551 D64.9 no evidence right now as of 1 month ago will rechk in the fall Neoplasm o f urinary bladder 953616591 C67.1 recent urine cytology is negative and he remains currently free of [place] [id number] Krishna Ghosh [facility] [address] [place] [address] 07/26/2023 10:53:42 07/29/2023 09:42:59 Pain of left shoulder joint 5702937828 2435478 M25.512 known osteoarthr itis with very limited rom due to pain we will provide inj luis [id number] Krishna Ghosh [facility] [address] [place] [address] 01/01/2024 13:31:17 01/01/2024 14:02:46 Depression screening 809733361 Z13.31 neg Impaired f asting glycemia 631278226 R73.01 a1c is 5.3 Lumbar arthritis 8324534 01 M46.96 we will try to get him some medication to use on a prn but he will let me know when he wants ithas worsening radiculopa thy will need a cane to assist with his ambulation as he is now a fall riskwe will have him try diclofenac 50 bid Marginal z one lymphoma 964821729 C83.[address] maria and has been doing well RT will be started at some point toowill be sending him the results of the lab cbc shows hgb down to 11 [id number] Krishna Ghosh DO [facility] [address] [facility] [address],[place] [address] 06/23/2024 13:15:17 06/23/2024 14:21:43 Essential hypertension 67220157 I10 here for bp doing ok overall Hypercholesterolemia 136 35957 E78.00 stable and not having any issues with the lovastatin Impaired f asting glycemia 824671313 R73.01 a1c is 5.3 Depression screening 171 201074 Z13.31 neg Lumbar arthritis 6697403 01 M46.96 we will try to get [...] Name 12/31/2022 2 [place] [id number] Nico Ashraf [id number] Nico Ashraf 12/31/2022 1 [place] [place] Nico Ashraf [id number] 3 Nico Ashraf 07/23/2023 2 [place] [id number] Nico Ashraf [id number] Nico Ashraf 07/23/2023 1 [place] Nico Ashraf [id number] 3 Nico Ashraf 07/26/2023 2 [place] [id number] Nico Ashraf [id number] Nico Ashraf 07/26/2023 1 [place] [facility] Nico Ashraf [id number] 3 Nico Ashraf 01/01/2024 2 [place] [id number] Nico Ashraf [id number] Nico Ashraf 01/01/2024 1 [place] [facility] Nico Ashraf [id number] 3 Nico Ashraf 06/23/2024 2 [place] [id number] Nico Ashraf [id number] Nico Ashraf 06/23/2024 1 [place] [facility] Nico Ashraf [id number] 3 Nico Ashraf Notes Date Note Type Note Provider Name and Address Organization Details Recorded Time 01/01/20 text/htm l here fopr rechk and is doing ok overallrelates that he was exposed [place] [facility] cancer could certainly be part of itstating that the arthritis is becoming a big problem and is having an issue with his daily acitivity Krishna Ghosh, DO [address] [facility], [place], [address], [facility] 12/31/2022 13:49:37 07/23/19 [...] eating well sleep ok bowels good Krishna EdmondNicolette Ghosh DO [address] [place] [address], [address], [facility] 07/23/2023 14:10:31 07/26/19 24 text/htm l here for his left shoulder cor t inj very sore hard to move Krishna Ghosh DO [address] [place], [address], [facility] 07/26/2023 12:09:17 01/01/20 24 text/htm l here for rechk and is feeling well denies any new changes or painfeels the same appetite is goodsleep is okbowels the same no bleed Krishna Ghosh DO [address] [place] [address], [address], [facility] 01/01/2024 13:54:01 06/24/19 25 text/htm [...] issuesno cp no sob Krishna Ghosh DO [address] [place] [address], [address], [facility] 06/23/2024 13:41:47
[2024-06-30 13:47] LABS: Iron 71 mcg/dL (45-160); Percent Iron Saturation 33 % (15-50); Total Iron Binding Capacity 214 mcg/dL (228-428); Unsaturated Iron Binding 143 ug/dL
== END 2024-06-30 11:03 | disposition home or self-care (01) ==
LOC: HO.MANLDS 11:02
PROVIDERS: Visit Provider Internal Medicine
DX: D64.9 Anemia, unspecified (principal)
CPT/HCPCS: 36415; 83540

== ENCOUNTER 2024-07-01 10:30 | Outpatient (REF) | payer MEDICARE, SELFPAY ==
[2024-07-01 18:17] LABS: OBS Int Ctl Valid YES; OBS1 NEGATIVE (NEGATIVE)
--- OUTSIDE RECORDS SUMMARY | 2024-07-01 18:46 | XMS_ITS | Data Portability ---
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) : MDM LOW MUST MEET 2 OF [...] COVERED Not available 07/26/2023 12:08:52 01/01/2024 01/01/2024 [id number] [place] [address] (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) MDM MODERATE MUST MEET 2 OUT OF [...] COVERED Not available 01/01/2024 13:51:59 06/23/2024 06/23/2024 [address] [place] [address] (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) MDM MODERATE MUST MEET 2 OUT OF [...] hemoglobi n A1c, QN, blood 2024 025 [facility], [address] [place] [address], [address], 06/24/2024 12:12:10 CMP, serum or plasma 2024 025 [facility], [address] [place] [address], [address], 06/24/2024 12:12:10 CBC 2024 025 [facility], [address] [place] [address], [address], 06/24/2024 12:12:10 PSA, serum or plasma 2024 025 [facility], [address] [place] [address], [address], 06/23/2024 13:51:40 PSA, serum or plasma 2023 024 [facility], [place], [address], 07/23/2023 14:10:53 CBC w/ auto diff 2023 024 [facility], [place], [address], 07/23/2023 14:10:53 CMP, serum or plasma 2023 024 [facility], [place], [address], 07/30/2023 08:16:34 lipid panel, blood 2023 024 [facility], [place], [address], 07/30/2023 08:16:35 iron + total iron-bind ing capacity (TIBC), serum 2023 024 [facility] [place], [address], 07/23/2023 14:10:53 ferritin, serum or plasma 2023 024 [facility], [place], [address], 07/23/2023 14:10:54 Referral None recorded. Procedures None recorded. Surgeries None recorded. Imaging None recorded. Medication Orders diclofena c sodium 50 mg tablet,de layed release 2024 025 [facility], [address] [place] [address], [address], 06/23/2024 13:41:00 diclofena c sodium 50 mg tablet,de layed release 2022 023 [id number], [address], [place], [id number], 12/31/2022 13:48:43 Patient TargetsNo targets recorded. Patient Instructions Encounter Date Encounter Id Patient Instructions Last Modified By Organization Details Last Modified Time 07/23/2023 [id number] high blood pressure: care instructions Not available 07/23/2023 14:09:30 learning about high blood pressure Not available 07/23/2023 14:09:31 anemia: care instructions Not available 07/23/2023 14:09:31 01/01/2024 [id number] prediabetes: car e instructions Not available 01/01/2024 13:52:00 Reason for Referral None Reported. Results Created Date Observation Date Name Description Value Unit Range Abnormal Flag Note LastModifiedBy Organization Detail LastModifiedTime Result Notes None recorded. Problems Name Problem SNOMED Code Status Onset Date Resolution Date Notes Provider Name and Address Organization Details Recorded Time Essential hypertens ion 53658292 [facility] 8 08:17:43 Hyperchol esterolem ia 12934105 [facility] 08:18[facility]03 Neoplasm of urinary bladder 844901721 [facility] 08:18:17 Impaired fasting glycemia 615791994 Active 2017 [facility] 08:19:02 Lumbar arthritis 091586854 Active 2017 Krishna Ghosh DO [address] [place] [address], [address], [facility] 8 09:59:37 Eczema 23195740 Active 2018 Krishna Ghosh DO [address] [place] [address], [address], [facility] 9 09:33:29 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 Krishna Ghosh DO [address] [place] [address], [address], [facility] 2 22:52:26 Pain of left shoulder joint 570176281286 11843 Active 2021 Krishna Ghosh DO [address] [place] [address], [address], [facility] [place] 2 09:03:36 Pneumonia 876147781 Active 2022 VICENTE OLIVEROS [address] [place] [address], [address], [facility] [place] 3 09:12:34 Pneumonia caused by SARS-CoV- 2 632233911349 695849 Active 2022 VICENTE OLIVEROS [address] [place] [address], [address], [facility] [place] 3 09:13:05 Anemia 651500666 Active 2022 Krishna PruittNicolette Ghosh DO [address] [place], [address], [facility] [place] 3 16:13:36 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 Procedures Surgical History Date Name Laterality Status Provider Name and Address Organization Details Recorded Time 024 Corticosteroid Injection completed Krishna Israelanthony [address] [place] [address], [address], [facility] 07/26/2023 12:08:25 022 Corticosteroid Injection completed Krishna GhoshDO [address] [place] [address], [address], [facility] [place] 06/13/2021 14:03:18 Imaging Results None recorded. Procedure [...] Updated DateTime 3 172.72 cm 27.4 kg/m2 45694.6 3 g 66 /min 99 % 99 % 130 mm[Hg] 72 mm[Hg] Patricia Lm [facility] 3 13:30:33 Date Recorded Body height Body mass index (BMI) Body weight Heart rate Respiratory rate Oxygen saturation Oxygen saturation in Arterial blood by Pulse oximetry Systolic blood pressure Diastolic blood pressure Provider Name and Address Organization Details Last Updated DateTime 4 172.72 cm 27 kg/m2 36602 g 62 /min 16 /min 97 % 97 % 136 mm[Hg] 70 mm[Hg] Adama Lei [facility] 4 13:44:01 Date Recorded Body height Body mass index (BMI) Body weight Heart rate Oxygen saturation Oxygen saturation in Arterial blood by Pulse oximetry Systolic blood pressure Diastolic blood pressure Provider Name and Address Organization Details Last Updated DateTime 4 172.72 cm 25.4 kg/m2 71149.9 3 g 66 /min 97 % 97 % 126 mm[Hg] 60 mm[Hg] Adama Lei [facility] 4 13:40:36 Date Recorded Body height Body mass index (BMI) Body weight Heart rate Oxygen saturation Oxygen saturation in Arterial blood by Pulse oximetry Systolic blood pressure Diastolic blood pressure Provider Name and Address Organization Details Last Updated DateTime 5 172.72 cm 25.4 kg/m2 26178.9 3 g 77 /min 97 % 97 % 130 mm[Hg] 68 mm[Hg] Ana Lin [facility] 5 13:26:53 Social History [...] mcg/0.25mL dose 1 completed Krishna Ghosh DO [address] [place] [address], [address], [facility] 05/30/2021 14:08:20 COVID-19, mRNA, LNP-S, PF, 100 mcg/0.5mL dose or 50 mcg/0.25mL dose 1 completed Krishna Ghosh DO [address] [place] [address], [address], [facility] 05/30/2021 14:08:50 COVID-19, mRNA, LNP-S, PF, 100 mcg/0.5mL dose or 50 mcg/0.25mL dose 1 completed Krishna Ghosh DO [address] [place] [address], [address], [facility] 05/30/2021 14:08:35 influenza, unspecified formulation 4 completed [facility] 12/17/2023 11:06:09 zoster, unspecified formulation 0 completed Krishna Ghosh DO [address] [place] [address], [address], [facility] 05/07/2019 14:20:31 Tdap 0 completed Krishna Ghosh DO [address] [place] [address], [address], [facility] 05/07/2019 14:21:39 Pneumococcal conjugate PCV 13 0 completed Krishna Ghosh DO [address] [place] [address], [address], [facility] [place] 05/07/2019 14:22:22 Past Encounters Encounter ID Performer Location Encounter Start Date Encounter Closed Date Diagnosis/Indication Diagnosis SNOMED-CT Code Diagnosis ICD10 Code Diagnosis Note [id number] Krishna Ghosh [facility] [address] [facility], [place] [address] 11/15/2017 09:21:42 11/15/2017 10:59:14 Impaired fasting glycemia 235883326 R73.01 stable and without issues have orderd another a1c with next lab Essential hypertension 10290334 I10 bp stable although pulse is a bit slow rides his bike daily Neoplasm o f urinary bladder 594775580 D49.4 recent urine cytology is negative Lumbar arthritis 9252207 01 M46.96 using cannabis with his med card [id number] Krishna Ghosh [facility] [address] [facility], [employer] [facility] [address] 04/18/2018 08:53:25 04/18/2018 09:42:05 Essential hypertension 91078296 I10 bp stable although pulse is a bit slow rides his bike daily Impaired f asting glycemia 773676640 R73.01 stable and without issues have orderd another a1c with next lab Hypercholesterolemia 136 64238 E78.00 stable and not having any issues with the lovastatin Abdominal aortic aneurysm screening 185952678 Z13.6 [id number] Krishna Ghosh [facility] [address] [facility], [employer] [facility] [address] 10/15/2018 09:24:28 10/15/2018 10:15:52 Essential hypertension 67960988 I10 bp stable rides his bike daily Impaired f asting glycemia 720964956 R73.01 stable and without issues have orderd another a1c now but again he has not done lab as request will just order each time he comes Eczema 69004216 L30.9 [id number] Krishna Ghosh [facility] [address] [facility], [employer] [facility] [address] 05/06/2019 09:39:40 05/06/2019 10:41:26 Essential hypertension 22028786 I10 bp stable rides his bike daily Impaired f asting glycemia 776504623 R73.01 stable and without issues have orderd another a1c now but again he has not done lab as request will just order each time he comes Hypercholesterolemia 136 05555 E78.00 stable and not having any issues with the lovastatin Active or passive immunization 311394209 Z23 highly reccomende d i will send to delphine figueroa Lumbar arthritis 1006840 01 M46.96 using cannabis with his med card has worsening radiculopa thy will need a cane to assist with his ambulation as he is now a fall risk [id number] Krishna Ghosh DO [facility] [address] [facility] [address] 10/14/2019 10:14:00 10/14/2019 10:59:15 Neoplasm of urinary bladder 444036418 D49.4 recent urine cytology is negative Hypercholesterolemia 136 03633 E78.00 stable and not having any issues with the lovastatin Impaired f asting glycemia 996290971 R73.01 stable and without issues have order another a1c now but again he has not done lab as request will just order each time he comes Essential hypertension 79009710 I10 bp stable and he still rides his bike daily or he is walking staying active 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 [id number] Krishna Ghosh DO [facility] [address] [facility],[place] [address] 06/22/2020 11:24:38 06/22/2020 12:43:36 Impaired fasting glycemia 788860178 R73.01 stable and without issues have order another a1c now but again he has not done lab as request will just order each time he comes Essential hypertension 23328526 I10 bp stable and he still rides his bike daily or he is walking staying active 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 Hypercholesterolemia 136 69251 E78.00 stable and not having any issues with the lovastatin [id number] Krishna Ghosh DO [facility] [address] [facility],[place] [address] 12/26/2020 14:24:08 12/26/2020 15:06:17 Lumbar arthritis 990472376 M46.96 we will try to get him some medication to use on a prn but he will let me know when he wants ithas worsening radiculopa thy will need a cane to assist with his ambulation as he is now a fall risk Essential hypertension 81606842 I10 bp stable and he still rides his bike daily or he is walking staying active works outside every day Eczema 36356174 L30.9 skin is dry uses mositurize r but eczema under control Impaired f asting glycemia 153715462 R73.01 a1c is 5.3 [id number] Krishna Ghosh DO [facility] [address] [facility] [address],[place] [address] 05/30/2021 14:02:41 05/30/2021 16:06:23 Hypercholesterolemia 57639631 E78.00 stable and not having any issues with the lovastatin Impaired f asting glycemia 867302316 R73.01 a1c is 5.3 Essential hypertension 43670290 I10 bp stable and he still rides his bike daily or he is walking staying active works outside every day Lumbar arthritis 3714312 01 M46.96 we will try to get him some medication to use on a prn but he will let me know when he wants ithas worsening radiculopa thy will need a cane to assist with his ambulation as he is now a fall risk Submandibu lar salivary gland swelling 450673543 K11.9 hopefully is just salivary swelling nontender so will get US first [id number] Krishna Ghosh DO [facility] [address] [facility],[place] [address] 06/13/2021 13:39:26 06/13/2021 14:34:25 Pain of left shoulder joint 1966261499 2437522 M25.512 known osteoarthr itis with very limited rom due to pain we will provide inj luis [id number] Krishna Ghosh [facility] [address] [facility],[place] [address] 07/04/2021 09:48:04 07/04/2021 10:31:54 Malignant lymphoma 761149393 C85.90 [id number] VICENTE OLIVEROS [facility] [address] [facility],[place] [address] 03/15/2022 08:56:08 03/15/2022 10:41:18 Malignant lymphoma 892810037 C85.92 stable Pneumonia caused by SARS-CoV-2 8030401591 20610481 J12.82 recheck CXR for monitoring pna Neoplasm o f urinary bladder 877194550 C67.1 will f/u with urine sample, hasn't seen urology in at least a year [id number] Krishna Ghosh [facility] [address] [facility] [address] 04/02/2022 15:41:23 04/02/2022 16:17:00 Malignant lymphoma 008007468 C85.[address] dorsey and is followed no treatment right now until pt notices it bothers then they willgive him RT Essential hypertension 28666737 I10 bp stable and he still rides his bike daily or he is walking staying active works outside every day Impaired f asting glycemia 984359300 R73.01 a1c is 5.3 Hypercholesterolemia 136 98465 E78.00 stable and not having any issues with the lovastatin Neoplasm o f urinary bladder 119760890 C67.1 recent urine cytology is negative Lumbar arthritis 3939740 01 M46.96 we will try to get him some medication to use on a prn but he will let me know when he wants ithas worsening radiculopa thy will need a cane to assist with his ambulation as he is now a fall risk Anemia 404722684 D64.9 [id number] Krishna Ghosh [facility] [address] [facility] [address] 07/11/2022 13:47:04 07/11/2022 15:36:01 Essential hypertension 86849261 I10 bp stable and he still rides his bike daily or he is walking staying active works outside every day Malignant lymphoma [address]3591 [address] dorsey and is followed no treatment right now until pt notices it bothers then they willgive him RThe will be seen on august 09 and lab prior Neoplasm o f urinary bladder 470017379 C67.1 recent urine cytology is negative [id number] Krishna Ghosh [facility] [address] [place] [address] 12/31/2022 13:23:20 12/31/2022 14:05:19 Essential hypertension 79481454 I10 bp stable and he still rides his bike daily or he is walking staying active works outside every day Hypercholesterolemia 136 59326 E78.00 stable and not having any issues with the lovastatin Neoplasm o f urinary bladder 242301122 C67.1 recent urine cytology is negative and he remains currently free of ca Marginal z one lymphoma 159902144 C83.[address] maria and has been doing well RT will be started at some point too Lumbar arthritis 1263788 01 M46.96 we will try to get him some medication to use on a prn but he will let me know when he wants ithas worsening radiculopa thy will need a cane to assist with his ambulation as he is now a fall riskwe will have him try diclofenac 50 bid [id number] Krishna Ghosh [facility] [address] [place] [address] 07/23/2023 13:39:02 07/23/2023 14:17:46 Essential hypertension 57626948 I10 bp stable and he still rides his bike daily or he is walking staying active works outside every day Hypercholesterolemia 136 90786 E78.00 stable and not having any issues with the lovastatin Marginal z one lymphoma 391540165 C83.[address] maria and has been doing well RT will be started at some point too Anemia 308438836 D64.9 no evidence right now as of 1 month ago will rechk in the fall Neoplasm o f urinary bladder 955924504 C67.1 recent urine cytology is negative and he remains currently free [place] [id number] Krishna Ghosh [facility] [address] [place] [address] 07/26/2023 10:53:42 07/29/2023 09:42:59 Pain of left shoulder joint 4690138917 1756789 M25.512 known osteoarthr itis with very limited rom due to pain we will provide inj luis [id number] Krishna Ghosh [facility] [address] [facility] [place] [address] 01/01/2024 13:31:17 01/01/2024 14:02:46 Depression screening 022041786 Z13.31 neg Impaired f asting glycemia 450777090 R73.01 a1c is 5.3 Lumbar arthritis 7682441 01 M46.96 we will try to get him some medication to use on a prn but he will let me know when he wants ithas worsening radiculopa thy will need a cane to assist with his ambulation as he is now a fall riskwe will have him try diclofenac 50 bid Marginal z one lymphoma 606921858 C83.[address] maria and has been doing well RT will be started at some point toowill be sending him the results of the lab cbc shows hgb down to 11 [id number] Krishna Ghosh DO [facility] [address] [facility] [address],[place] [address] 06/23/2024 13:15:17 06/23/2024 14:21:43 Essential hypertension 53019496 I10 here for bp doing ok overall Hypercholesterolemia 136 70472 E78.00 stable and not having any issues with the lovastatin Impaired f asting glycemia 266400751 R73.01 a1c is 5.3 Depression screening 171 803063 Z13.31 neg Lumbar arthritis 9727902 01 M46.96 we will try to get [...] Name 12/31/2022 2 [place] [id number] Nico Ashraf [id number] Ncio Ashraf 12/31/2022 1 [place] [employer] Nico Ashraf [id number] 3 Nico Ashraf 07/23/2023 2 [place] [id number] Nico Ashraf [id number] Nico Ashraf 07/23/2023 1 [place] [employer] Nico Ashraf [id number] 3 Nico Ashraf 07/26/2023 2 [place] [id number] Nico Ashraf [id number] Nico Ashraf 07/26/2023 1 [place] [facility] Nico Ashraf [id number] 3 Nico Ashraf 01/01/2024 2 [place] [id number] Nico Ashraf [id number] Nico Ashraf 01/01/2024 1 [place] [facility] Nico Ashraf [id number] 3 Nico Ashraf 06/23/2024 2 [place] [id number] Nico Ashraf [id number] Nico Ashraf 06/23/2024 1 [place] [facility] Nico Ashraf [id number] 3 Nico Ashraf Notes Date Note Type Note Provider Name and Address Organization Details Recorded Time 01/01/20 text/htm l here fopr rechk and is doing ok overallrelates that he was exposed to the toxic water [place] [employer] [facility] cancer could certainly be part of itstating that the arthritis is becoming a big problem and is having an issue with his daily acitivity Krishna Gohsh, DO [address] [facility], [place], [address], [facility] 12/31/2022 13:49:37 07/23/19 text/htm [...] ok bowels good Krishna EdmondNicolette Ghosh DO [address] [place] [address], [address], [facility] [place] 07/23/2023 14:10:31 07/26/19 24 text/htm l here for his left shoulder cor t inj very sore hard to move Krishna Ghosh DO [address] [place], [address], [facility] [place] 07/26/2023 12:09:17 01/01/20 24 text/htm l here for rechk and is feeling well denies any new changes or painfeels the same appetite is goodsleep is okbowels the same no bleed Krishna Ghosh DO [address] [place] [address], [address], [facility] [place] 01/01/2024 13:54:01 06/24/19 25 text/htm [...] issuesno cp no sob Krishna Ghosh DO [address] [place] [address], [address], [facility] [place] 06/23/2024 13:41:47
--- OUTSIDE RECORDS SUMMARY | 2024-07-01 18:46 | XMS_ITS | Continuity of Care Document ---
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 [facility] [...] BEDTIME ORAL ACTIVE VIRA ,MARIE Pop 2011 [facility] CARBOXYMETH YLCELLULOSE NA 0.5% SOLN,OPH INSTILL 1 DROP INTO EACH EYE FOUR TIMES DAILY NEEDED FOR DRY EYE OPHTHA LMIC ACTIVE 03/24/2025 [id number] [place] NDREW E 2024 15 [facility] IBUPROFEN TAB TAKE BY MOUTH NEEDED ORAL ACTIVE VANWAGNER ,MARIE Pop 2011 [facility] LOVASTATIN 10MG TAB TAKE ONE TABLET BY MOUTH AT BEDTIME ORAL ACTIVE VANWAGN ,MARIE Pop 2011 [facility] TERAZOSIN HCL 5MG CAP TAKE 1 CAPSULE BY MOUTH AT BEDTIME [facility]AL [facility]IVE [facility] Pop [facility] TIMOLOL MALEATE 0.5% SOLN,OPH INSTILL 1 DROP INTO EACH EYE EVERY MORNING FOR INCREASE D PRESSURE IN THE EYE OPHTHA LMIC DISCONT INUED 04/07/2024 [id number] 4 [place] NDREW E 2023 5 [facility] TIMOLOL MALEATE 0.5% SOLN,OPH INSTILL 1 DROP INTO EACH EYE EVERY MORNING FOR INCREASE D PRESSURE IN THE EYE OPHTHA LMIC 06/21/2024 [id number] 5 [place] NDREW E 2024 5 [facility] TIMOLOL MALEATE 0.5% SOLN,OPH INSTILL 1 DROP INTO EACH EYE EVERY MORNING OPHTHA LMIC 07/10/2023 [id number] 4 [place] NDREW E 2022 10 [facility] Immunizations Combined list of available immunizations from the Department of Defense and Veterans Affairs facilities. 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 Status Comments Source INFLUENZA, HIGH-DOSE, QUADRIVALENT 2022 MARÍA ARCE HY E LEFT DELTO ID [id number] A 197 complet ed [facility] PNEUMOCOCCAL CONJUGATE PCV20, POLYSACCHARID E [id number] CONJUGATE, ADJUVANT, PF 2022 MARÍA ARCE HY E RIGHT DELTO ID [id number] 216 complet ed [facility] COVID-19 (MODERNA), MRNA, LNP-S, PF, 100 MCG OR 50 MCG DOSE 3 2020 207 complet ed MOD; [id number]; 2 [facility] COVID-19 (MODERNA), MRNA, LNP-S, PF, 100 MCG/0.5 ML DOSE 2 2020 207 complet ed MOD; [id number]; 1 [facility] COVID-19 (MODERNA), MRNA, LNP-S, PF, 100 MCG/0.5 ML DOSE 1 2020 207 complet ed MOD; [id number]; 1 [facility] INFLUENZA, SEASONAL, INJECTABLE 2016 141 complet ed Site: Left Deltoid [facility] FLU,3 YRS (HISTORICAL) 2015 88 complet ed [facility] [place] FLU,3 YRS (HISTORICAL) 2013 88 complet ed [facility] DTAP, UNSPECIFIED FORMULATION 2012 107 complet ed Site: Right Deltoid [facility] PNEUMOCOCCAL, UNSPECIFIED FORMULATION 2010 109 complet ed [facility] Encounters Combined list of: 1) Encounters [...] [facility] En[facility] [id number] 12/28 [facility] En[facility] [id number] 01/01 [facility] En[facility] [id number] 01/01 [facility] En[facility] [id number] 11/21 [facility] Encounter [id number] 12/03 [facility] En[facility] [id number] [facility] Encounter [id number] [facility] En[facility] [id number] 01/07 [facility] Out[facility] Encounter [id number] 01/15 [facility] FALL RISK ASSESSMENT DOCD [id number] Diagnos is: ICD-10- CM H54.8 Legal blindne ss, as defined in [place] RENATA BUENO 01/28 [facility] Out[facility] Encounter [id number] 01/29 [facility] [place] OFFICE O/P EST HI 40 MIN [id number] Diagnos is: ICD-10- CM H54.8 Legal blindne ss, as defined in [place] JULISA SENIOR 02/12 [facility] COMPRE OPH EXAM EST PT 1/ [id number] Diagnos is: ICD-10- CM 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 Social History Type Response Date Comment Sourc e Tobacco smoking status UTIS VA-TOBACCO FORMER USER 11/22/2022 [facility] [place] History of tobacco use VA-TOBACCO QUIT 15 YRS OR MORE 11/22/2022 [facility] [place] History of tobacco use QUIT TOBACCO USE > 7 YEARS AGO 12/21/2016 [facility] [place] History of tobacco use QUIT TOBACCO USE > 7 YEARS AGO 12/12/2015 [facility] [place] History of tobacco use QUIT TOBACCO USE > 7 YEARS AGO 02/29/2012 [facility] [place] Plan of Care List of future care activities from Department of Veterans Affairs facilities. Additional future care activities may be listed in the Assessment and Plan section. Date/Time Care Activity Care Activity Detail Facili ty 10/05/2024 AMBULATORY - MEDICINE AMBULATORY - MEDICI [facility]
== END 2024-07-01 10:31 | disposition home or self-care (01) ==
LOC: HO.MANLNP 10:30
PROVIDERS: Visit Provider Internal Medicine
DX: D64.9 Anemia, unspecified (principal)
CPT/HCPCS: 82272

== ENCOUNTER 2024-12-29 13:57 | Outpatient (REF) | payer MEDICARE, SELFPAY ==
[2024-12-29 18:11] LABS: Hematocrit 37.1 % (42.0-52.0); Hemoglobin 12.1 g/dl (14.0-18.0); Mean Corpuscular HGB Conc 32.6 g/dl (31.0-36.0); Mean Corpuscular Hemoglobin 29.7 pg (27.0-33.0); Mean Corpuscular Volume 90.9 fL (80.0-98.0); NRBC Abs Auto 0.000 X10*3/uL (0.0-0.012); NRBC Pct Auto 0.0 /100WBC (0.0-0.2); Platelet Count 228 X10*3/uL (160-400); Red Blood Count 4.08 X10*6/uL (4.60-5.80)
[2024-12-29 18:14] LABS: WBC ABN SCTR FOR CBC 1; White Blood Count 15.2 X10*3/uL (4.8-10.8)
[2024-12-29 18:34] LABS: Alanine Aminotransferase 14 U/L (0-40); Albumin Level 3.9 g/dL (3.5-5.0); Alkaline Phosphatase 111 U/L (39-117); Anion Gap 10 (12-20); Aspartate Amino Transferase 24 U/L (5-37); Blood Urea Nitrogen 25 mg/dL (9-16); Calcium 8.8 mg/dL (8.4-10.2); Carbon Dioxide 28 mmol/L (22-29); Chloride 108 mmol/L (96-108); Estimated Glomerular Filt Rate 55; Potassium 4.5 mmol/L (3.3-5.1); Sodium 141 mmol/L (135-145); Total Protein 6.1 g/dL (6.5-8.0)
[2024-12-29 18:43] LABS: Prostate Specific Antigen 1.61 ng/mL (<0.05-4.0)
--- OUTSIDE RECORDS SUMMARY | 2024-12-29 18:43 | XMS_ITS | Clinical Summary ---
Author Organization [facility] Address [address] [place] [address] Phone Care Team Providers Care Sales Operations Coordinator Name Role Phone Oleg Buck DO Unavailable [phone] Karly Iraheta RN Unavailable [phone] Krishna Key DO Primary Care Provider [phone] Allergies No known active allergies Medications lovastatin (MEVACOR) 10 MG tablet Take 10 mg by mouth daily. Active terazosin (HYTRIN) 5 MG capsule Take 1 capsule by mouth daily. 0 Active aspirin 81 mg Cap Take 81 mg by mouth daily. Active acetaminophen (TYLENOL) 325 mg tablet Take 1-2 tablets (325-650 mg total) by mouth every 6 (six) hours as needed (mild - moderate pain). 2 Active psyllium husk, with sugar, 3.4 gram/7 gram Powd Take 1 Dose by mouth daily. 3 Active OXYGEN-AIR DELIVERY SYSTEMS MISC 2 L/min by Nasal route nightly at bedtime. 3 Active timolol (TIMOPTIC) 0.5 % ophthalmic solution INSTILL 1 DROP INTO EACH EYE EVERY MORNING 3 Active diclofenac sodium (VOLTAREN) 50 MG EC tablet TAKE 1 TABLET TWICE A DAY BY ORAL ROUTE NEEDED FOR 30 DAYS 3 Active cholecalciferol (VITAMIN D3) 50,000 unit capsuleIndicatio ns:Vitamin D deficiency, unspecified Take 1 capsule (50,000 Units total) by mouth once a week. 8 capsule 1 4 Active Active Problems Patient Care Coordination No te Formatting of this note migh t be different from the original. Height 173.8cm no shoes taken by OC 08/03/2021 Pt's preferred listed number is actually his brother Obi's number. Obi helps arrange rides and also helps to communicate messages, as pt is [place] so cannot speak on the phone or hear his voicemails. 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 Improving. Nocturnal desats prominent. Overnight oximetry, ?outpt sleep study when better. - cont dexamethasone - holding off on remdesivir - DW pt 03/09, he meets criteria. He is not interested in adding this now, would reconsider if worsens. - b/c hemoptysis, ground glass opacities, treatment for bacterial pneumonia ceftriaxone/azithromycin, stopped after three days - No indication of pulm hem. CBC stable, no significant hemoptysis. Plan will be home with services on Saturday, with or without oxygen based on his oximetry testing Lymphadenopathy 07/30/2021 Overview (09/07/2021): Hx low grade bladder ca dxed 02/27/2010 TURBT 07/31/2012-neg 04/2021 cytology neg Self discovered R neck nodes No pain No B sx US neck 06/16/2021: Numerous R neck nodes, the largest 3.[address] maximal [address] neck 06/21/2021: Bulky R cervical adenopathy, the largest 2.1 cm Subcm L cervical adenopathy PET: R > L bilateral cervical LAD; no splenomegaly; no LAD in the chest or abdomen 08/25/2021 excisional bx: Siomna MZL High cholesterol Assessment & Plan (03/07/2022 8:10 PM EST): Continue statin Encounters Date Type Department Care Team Description 11/05/2024 2:00 PM EDT Office Visit [facility] at [address] [address] Oleg Buck DO Marginal zone lymphoma (Primary Dx); Lymphadenopathy 11/05/2024 12:42 PM EDT - 11/05/2024 11:59 PM EDT Hospital Encounter [facility] [address] [place] [address] Oleg Buck DO Discharge Disposition: Home or Self Care 11/04/2024 Orders Only [facility] at [address] [address] [place] Marginal zone B-cell lymphoma (Primary Dx) from Last 3 Months Immunizations Immunization Administration Dates Next Due COVID-19 (Pre-12/31) Moderna Vaccine, mRNA, PF 02/25/2021,04/28/2020,03/28/2020 DTaP, unspecified formulation 06/02/2012 INFLUENZA, SPLIT VIRUS, TRIV ALENT W/ PRESERVATIVE IM 12/21/2016 Influenza High-Dose Quadriva lent Preservative Free IM 03/13/2022,11/27/2019 Influenza High-Dose Trivalen t Preservative Free IM 12/16/2023 Influenza Trivalent Adjuvant ed Preservative free IM 12/07/2015 Influenza, Unspecified Formulation 01/09/2014 Pneumococcal conjugate PCV13 05/07/2019 Pneumococcal conjugate PCV20 11/22/2022 Pneumococcal polysaccharide PPSV23 06/12/2010 Pneumococcal, Unspecified Formulation 06/12/2010 Tdap 05/07/2019 Zoster recombinant 10/14/2019,05/07/2019 Family History Medical History Relation Comments Hypertension Brother Alcohol use disorder Father Hip fracture Mother No Known Problems Sister Relation Status Comments Brother Alive Father Mother Sister Alive Social History Tobacco Use Types Packs/Day Years Used Date Smoking Tobacco: Former Cigarettes 2 40 Smokeless Tobacco: Never Tobacco Cessation:Counseling Given: Not Answered Alcohol Use Standard Drinks/Week Comments Yes 5 (1 standard drink = 0.6 oz pur e alcohol) socially Home Health Assessment: Transportation Answer Date Recorded Lack of Transportation (Medical) No 04/12/2022 Lack of Transportation (Non-Medical) No 04/12/2022 Patient Unable or Declines to Respond No 04/12/2022 Education Answer Date Recorded Are you interested in more education? Not on williams e 07/06/2022 Are you concerned about learning? Not on file 07/06/2022 No 07/06/2022 No 07/06/2022 Digital Access Answer Date Recorded No 08/03/2022 No 08/03/2022 Reliable internet access at home? Not on file 08/03/2022 Device with a working camera? Not on file Intimate Partner Violence Answer Date R ecorded Are you denied basic needs s uch as food, clothing, or medical care? No 03/07/2022 In the past 12 months have y ou been in a relationship with a person who hurts, threatens, or tries to control you? No 03/07/2022 Are you denied basic needs s uch as food, clothing, or medical care? No 03/07/2022 In the past 12 months have y ou been in a relationship with a person who hurts, threatens, or tries to control you? 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 Not on file Not on file Not o n file Last Filed Vital Signs Vital Sign Reading Time Taken Comments Blood Pressure 124/66 11/05/2024 1:31 PM EDT Pulse 67 11/05/2024 1:31 PM EDT Temperature 35.9 C (96.6 F) 11/05/2024 1:31 PM EDT Respiratory Rate 18 03/13/2022 9:02 AM EST Oxygen Saturation 98% 11/05/2024 1:31 PM EDT Inhaled Oxygen Concentration - - Weight 77.4 kg (170 lb 9.6 oz) 11/05/2024 1:28 P M EDT Height 173.8 cm (5' 8.43 ) 11/05/2024 1:28 PM ED T Body Mass Index 25.62 11/05/2024 1:28 PM EDT Plan of Treatment Upcoming Encounters Date Type Department Care Team (Late st Contact Info) Description 05/07/2025 1:00 PM EST Appointment [facility] [address] [place] [address] Oleg Buck, DO [address] [place] [address] [email or web address] 05/07/2025 2:00 PM EST Office Visit [facility] [place] [address] [place] [address] Oleg Buck, [address] [place] [id number] [email or web address] Health Maintenance Due Date Last Done Comments DEPRESSION SCREENING 1954 RSV VACCINE (1 - 1-dose 75+ series) 2017 INFLUENZA VACCINE (#1) 2024 , 03/13/2022, 11/27/2019, Additional history exists COVID-19 VACCINE ( season) 2024 06/11/2022, 02/25/2021, 04/28/2020, Additional history exists Adult Td,Tdap Booster 05/07/2029 05/07/2019 ZOSTER VACCINES Completed 10/14/2019, 05/07/2019 PNEUMOCOCCAL VACCINES (50+ years) Completed 11/22/2022, 05/07/2019, 06/12/2010 HEPATITIS A VACCINES Aged Out No long er eligible based on patient's age to complete this topic HIB VACCINES Aged Out No longer eligi ble based on patient's age to complete this topic MENINGOCOCCAL VACCINES (ACWY) Aged Out No longer eligible based on patient's age to complete this topic MENINGOCOCCAL VACCINES (B) Aged Out N o longer eligible based on patient's age to complete this topic Medical Devices Implanted Type Area Step Finisher Device Identifier Shelf Expiration Date Model / Serial / Lot Lens Lens Bilateral : Eye Nodata NODATA Description:Cochlear Implant Procedures Procedure Name Priority Date/Time Associated Diagnosis Comments SEDIMENTATION RATE (ESR) Routine 11/05/2024 12:42 PM EDT Marginal zone B-cell lymphoma LDH Routine 11/05/2024 12:42 PM EDT Marginal zone B-cell lymphoma COMPREHENSIVE METABOLIC PANEL Routine 11/05/2024 12:42 PM EDT Marginal zone B-cell lymphoma CBC AND DIFFERENTIAL Routine 11/05/2024 12:42 PM EDT Marginal zone B-cell lymphoma from Last 3 Months Results * LDH (11/05/2024 12:42 PM EDT) LDH 201 118 - 273 U/L [facility] Blood 11/05/2024 12:4 2 PM EDT 11/05/2024 1:04 PM EDT Oleg Buck DO LAB BLOOD ORDERABLES Final Result [facility] [address] [place] [address] * (ABNORMAL) Comprehensive metabolic panel (11/05/2024 12:42 PM EDT) SODIUM 142 133 - 146 mmol/L [facility] POTASSIUM 4.8 3.3 - 5.1 mmol/L [facility] CHLORIDE 107 96 - 108 mmol/L [facility] CO2 27 21 - 35 mmol/L [facility] BUN 26(H) 6 - 19 mg/dL [facility] CREATININE 1.30 0.5 - 1.5 mg/dL [facility] GLUCOSE 132(H) 70 - 99 mg/dL [facility] ALBUMIN 3.9 3.9 - 4.8 g/dL [facility] TOTAL PROTEIN 6.1(L) 6.5 - 8.0 g/dL [facility] CALCIUM 9.0 8.4 - 10.3 mg/dL [facility] ALKALINE PHOSPHATASE 128(H) 39 - 117 U/L [facility] TOTAL BILIRUBIN 0.4 0.0 - 1.2 mg/dL [facility] AST 18 0 - 37 U/L [facility] ALT 10 0 - 40 U/L [facility] GLOBULIN 2.2 1 - 4.8 g/dL [facility] EGFR 55(L) >59 mL/min/1.7 3m2 [facility] Comment:Estimated glomerular filtration rate calculated using the CKD-EPI refit equation. ANION GAP 13 10 - 20 mmol/L [facility] Blood 11/05/2024 12:4 2 PM EDT 11/05/2024 1:04 PM EDT [facility] LAB BLOOD ORDERABLES Final Result Performing Organization Address City/[facility]/ZIP Co de Phone Number [address] [address] * Sedimentation rate (ESR) (11/05/2024 12:42 PM EDT) ESR 2 0 - 20 mm/h [facility] Blood 11/05/2024 12:4 2 PM EDT 11/05/2024 1:04 PM EDT [facility] LAB BLOOD ORDERABLES Final Result Performing Organization Address [facility] Co de Phone Number [address] [address] * (ABNORMAL) CBC and differential (11/05/2024 12:42 PM EDT) WBC 13.46(H) 4.00 - 11.00 K/uL [facility] Comment:Count confirmed by carol sewell review. RBC 4.13(L) 4.50 - 5.90 M/uL [facility] HGB 12.2(L) 13.5 - 17.5 g/dL [facility] HCT 38.7(L) 41.0 - 53.0 % [facility] PLT 195 150 - 450 K/uL [facility] MCV 93.7 80.0 - 100.0 [facility] MCH 29.5 27.0 - 31.0 pg [facility] MCHC 31.5(L) 32.0 - 36.0 g/dL [facility] RDW 13.9 11.5 - 14.5 % [facility] MPV 9.8 8.4 - 12.0 [facility] NRBC 0.00 0.00 /100 WBCs [facility] ABSOLUTE NRBC 0.00 0.00 K/uL [facility] DIFF METHOD Manual [facility] TOTAL CELLS COUNTED 200 [facility] NEUTS 64.0 48.0 - 76.0 % [facility] LYMPHS 30.0 18.0 - 41.0 % [facility] Comment:Few atypical Lymphs seen. MONOS 4.0 4.0 - 11.0 % [facility] EOS 1.0 0.0 - 5.0 % [facility] BASOS 1.0 0.0 - 1.5 % [facility] ABSOLUTE NEUTS 8.61(H) 1.92 - 7.60 K/uL [facility] ABSOLUTE LYMPHS 4.04 0.72 - 4.10 K/uL [facility] ABSOLUTE MONOS 0.54 0.16 - 1.10 K/uL [facility] ABSOLUTE EOS 0.13 0.00 - 0.50 K/uL [facility] ABSOLUTE BASOS 0.13 0.00 - 0.15 K/uL [facility] SMUDGE CELLS PRESENT(A) None [facility] Blood 11/05/2024 12:4 2 PM EDT 11/05/2024 1:04 PM EDT us Olge Buck DO LAB BLOOD ORDERABLES Final Result [facility] [address] [place] [address] from Last 3 Months Insurance MEDICARE PART A & B [employer] [address] [place] [address] MEDICARE PART A & B [employer] SUPPLEMENT MEDICARE PART A & B Member Subscriber Plan / Payer ( fective 2007-Present) Name:Nico Ashraf Member ID:[id number] Relation to Subscriber:Self Name:Nico Ashraf Subscriber ID:[id number] Payer ID:[id number] Group ID:Not on file Type:Medicare Address: [employer] [facility] [address] [place] [address] [place] [address] [employer] SUPPLEMENT MEDICARE PART A & B [facility] MEDEX SUPPLEMENT MEDICARE PART A & B [facility] MEDEX SUPPLEMENT MEDICARE PART A & B Member Subscriber Plan / Payer (Ef fective 2007-Present) Name:Nico Ashraf Member ID:[id number] Relation to Subscriber:Self Name:[place] Nico Subscriber ID:[id number] Payer ID:[id number] Group ID:Not on file Type:Medicare Address: [employer] [facility]. [address] [place] [place] [address] [facility] MEDEX SUPPLEMENT MEDICARE PART A & B [facility] MEDEX SUPPLEMENT [facility] MEDICARE PART A & B [employer] SUPPLEMENT [facility] MEDICARE PART A & B [employer] MEDEX SUPPLEMENT [facility] Advance Directives For more information, please contact: [phone] (9AM - 5PM Rachele/[facility], Saturday-Saturday) Documents on File Type Date Recorded Patient Splitter Head Expl anation Healthcare Proxy 08/28/2021 11:23 AM * Full Code (Latest Code Status on File) Date Activated Date Inactivated Comments 03/07/2022 8:13 PM Question Answer Comments Code Status Confirmed With: Patient * Full Code Date Activated Date Inactivated Comments 08/25/2021 7:28 AM 03/07/2022 8:13 PM Question Answer Comments Code Status Confirmed With: Patient Care Teams Sales Operations Coordinator Relationship Specialty Start Date End Date Krishna Key DO [address] [place] [id number] [email or web address] PCP - General Internal Medicine 07/02/24 Oleg Buck DO [address] [place] [address] [email or web address] Primary Oncologist Hematology and Oncology 06/19/24 Karly Iraheta, XENIA [address] [place] [address] [email or web address] Nurse Navigator 06/19/24 Additional Source Comments The information contained in this document represents components of the legal health record. It is not the complete legal health record.[facility]
--- OUTSIDE RECORDS SUMMARY | 2024-12-29 18:43 | XMS_ITS | Encounter Summary ---
Author Organization [facility] Address [address] [facility] [address] [place] [address] Phone Care Team Providers Care Bearing Inspector Name Role Phone Krishna Key DO Primary Care Provider [phone] Pawel Coelho MD Unavailable [phone] BigKrishna cruz DO Primary Care Provider [phone] Oleg Buck DO Unavailable [phone] Karly Iraheta RN Unavailable [phone] Bigda, Krishna Pruitt DO Primary Care Provider [phone] Encounter Details Date Type Department Care Team (Latest Contact Info) Description 03/15/2022 Transcribe Orders Virtual Department 30 [place] [address] Leona Chen PA [address] [place] [address] [place] [address] Pneumonia due to coronavirus disease 2019 (Primary Dx) Social History Tobacco Use Types Packs/Day Years Used Date Smoking Tobacco: Former Cigarettes 2 40 Smokeless Tobacco: Never Alcohol Use Standard Drinks/Week Comments Yes 5 (1 standard drink = 0.6 oz pur e alcohol) Intimate Partner Violence Answer Date R ecorded [...] Not on file Not o n file documented as of this encounter Plan of Treatment Upcoming Encounters Date Type Department Care Team (Late st Contact Info) Description 05/07/2025 1:00 PM EST Appointment [facility] [address] [place] [address] Oleg Buck, [address] [address] [email or web address] 05/07/2025 2:00 PM EST Office Visit [facility] at [address] [address] Oleg Buck, [address] [address] [email or web address] documented as of this encounter Results * XR CHEST PA AND LATERAL 2 VIEWS (03/28/2022 10:14 AM EST) Anatomical Region Laterality Modality Chest Computed Radiogr aphy 03/29/2022 10:5 9 AM EST Impressions 03/29/2022 11:03 AM EST No significant interval change from 03/07/2022. Narrative 03/29/2022 11:03 AM EST XR CHEST PA AND LATERAL 2 VIEWS COMPARISON: 02/27/2022 CT and radiographs FINDINGS: Devices/Tubes/Lines: None. Lungs: No significant change in scattered patchy interstitial and airspace opacities when allowing for slight improvement in basilar aeration. No new or enlarging infiltrate identified. Pleura: Persistent right costophrenic angle blunting laterally but not posteriorly, probably representing plaquing as suggested on previous CT. Heart/Mediastinum: Heart within normal limits in size. No overt change in pulmonary vessel caliber. No pulmonary edema. Bones/Soft Tissues: Visualized bony thorax grossly intact. Procedure Note Jostin Calix MD - 03/29/2022 XR CHEST PA AND LATERAL 2 VIEWS COMPARISON: 02/27/2022 CT and radiographs FINDINGS: Devices/Tubes/Lines: None. Lungs: No significant change in scattered patchy interstitial and airspaceopacities when allowing for slight improvement in basilar aeration. No newor enlarging infiltrate identified. Pleura: Persistent right costophrenic angle blunting laterally but notposteriorly, probably representing plaquing as suggested on previous CT. Heart/Mediastinum: Heart within normal limits in size. No overt change inpulmonary vessel caliber. No pulmonary edema. Bones/Soft Tissues: Visualized bony thorax grossly intact. IMPRESSION: No significant interval change from 03/07/2022. Leona ZHANG IMG XR CHEST Final Resul t documented in this encounter Visit Diagnoses Diagnosis Pneumonia due to coronavirus disease 2019- Primary Pneumonia due to coronavirus disease 2019 documented in this encounter Additional Health Concerns Infection Onset Date Last Indicated Resolved Time COVID-19 03/07/2022 03/07/2022 03/28/2022 1:21 AM EST documented as of this encounter Care Teams Bearing Inspector Relationship Specialty Start Date End Date Krishna Key DO PCP - General 03/14/17 04/15/22 Krishna Key DO PCP - General Internal Medicine 04/16/22 07/01/24 Krishna Key DO [address] [place] [address] [email or web address] PCP - General Internal Medicine 07/02/24 Pawel Coelho MD [address] [place] [address] [address] [place] [address] [email or web address] Primary Oncologist Medical Oncology 07/05/21 06/18/24 Oleg Buck DO [address] [place] [address] [email or web address] Primary Oncologist Hematology and Oncology 06/19/24 Karly Iraheta RN [address] [place] [address] [email or web address] Nurse Navigator 06/19/24 documented as of this encounter Additional Source Comments The information contained in this document represents components of the legal health record. It is not the complete legal health record.[facility]
--- OUTSIDE RECORDS SUMMARY | 2024-12-29 18:43 | XMS_ITS | Encounter Summary ---
Author Organization [facility] Address [address] [address] Phone Care Team Providers Care Data Analysis Manager Name Role Phone Krishna Key DO Primary Care Provider [phone] Pawel Coelho MD Unavailable Krishna Key DO Primary Care Provider [phone] Oleg Buck DO Unavailable [phone] Karly Iraheta RN Unavailable [phone] Krishna Key DO Primary Care Provider [phone] Encounter Details Date Type Department Care Team (Late Contact Info) Description 04/18/2018 Ancillary Orders Virtual Department 30 [place] [address] Krishna Key DO [address] [place] [address] Encounter for screening for cardiovascular disorders Social History Tobacco Use Types Packs/Day Years Used Date Smoking Tobacco: Never Assessed Sex and Gender Information Value Date Recorded Sex Assigned at Male 03/07/2022 1:53 PM EST Legal Sex Male 10:10 PM EDT Gender Identity Male 03/07/2022 1:53 PM EST Sexual Orientation Not on file documented as of this encounter Plan of Treatment Upcoming Encounters Date Type Department Care Team (Late st Contact Info) Description 05/07/2025 1:00 PM EST Appointment [facility] Laboratory 30 [place] [address] Oleg Buck, DO [address] [place] [address] [email or web address] 05/07/2025 2:00 PM EST Office Visit [facility] 30 [place] [address] Oleg Buck, DO [address] [place] [address] [email or web address] documented as of this encounter Results * US Abdominal Aortic Screening (06/05/2018 10:11 AM EDT) Anatomical Region Laterality Modality Abdomen Ultrasound 06/05/2018 10:2 9 AM EDT Impressions 06/05/2018 10:30 AM EDT No AAA. POS [id number] Narrative 06/05/2018 10:30 AM EDT COMPARISON: CT abdomen pelvis 04/14/2012. ABDOMINAL AORTA ULTRASOUND FINDINGS: No evidence of an abdominal aortic aneurysm. The proximal common iliac arteries are nonaneurysmal. Stable moderate diffuse calcified plaque. Aorta measures up to 2.2 cm. Procedure Note Marine Vargas MD - 06/05/2018 COMPARISON: CT abdomen pelvis 04/14/2012. ABDOMINAL AORTA ULTRASOUND FINDINGS: No evidence of an abdominal aortic aneurysm. The proximal common iliacarteries are nonaneurysmal. Stable moderate diffuse calcified plaque.Aorta measures up to 2.2 cm. IMPRESSION: No AAA. POS [id number] us Krishna A Bigda DO IMG US ABDOMEN Final Result documented in this encounter Visit Diagnoses Diagnosis Encounter for screening for cardiovascular disorders Encounter for screening for cardiovascular disorders documented in this encounter Additional Health Concerns Infection Onset Date Last Indicated Resolved Time CoV-Risk 03/07/2022 03/07/2022 03/07/2022 2:44 PM EST COVID-19 03/07/2022 03/07/2022 03/28/2022 1:21 AM EST documented as of this encounter Care Teams Data Analysis Manager Relationship Specialty Start Date End Date Krishna Key DO [email or web address] PCP - General 03/14/17 04/15/22 Krishna Key DO [email or web address] PCP - General Internal Medicine 04/16/22 07/01/24 Krishna Key DO [address] [place] [address] [email or web address] PCP - General Internal Medicine 07/02/24 Pawel Coelho MD [address] [place] [address] [address] [place] [address] [email or web address] Primary Oncologist Medical Oncology 07/05/21 06/18/24 Oleg Buck DO 30 [place] [address] [email or web address] Primary Oncologist Hematology and Oncology 06/19/24 Karly Iraheta RN [address] [place] [address] [email or web address] Nurse Navigator 06/19/24 documented as of this encounter Additional Source Comments The information contained in this document represents components of the legal health record. It is not the complete legal health record.[facility]
--- OUTSIDE RECORDS SUMMARY | 2024-12-29 18:43 | XMS_ITS | Encounter Summary ---
Author Organization [facility] Address [address] [facility] [address] [place] [address] Phone Care Team Providers Care Parent Partner Name Role Phone Krishna Key DO Primary Care Provider [phone] Pawel Coelho MD Unavailable [phone] Krishna Key DO Primary Care Provider [phone] Oleg Buck DO Unavailable [phone] Karly Iraheta RN Unavailable [phone] Krishna Key DO Primary Care Provider [phone] Reason for Referral * MRI/CAT Scan - Closed Specialty Diagnoses / Procedures Referred By Contac t Referred To Contact Radiology Diagnoses Localized enlarged lymph nodes Procedures CT Neck Krishna Key DO Phone: tel: fax: [email or web address] Referral ID Status Reason Start Date Expiration Date Visits Re quested Visits Authorized [id number] Closed 06/20/2021 06/20/2022 1 1 Encounter Details Date Type Department Care Team ([facility] st Contact Info) Description 06/20/2021 Transcribe Orders [facility] Department [address] [place] [address] Krishna Key DO [address] [place] [address] [place] [address] [email or web address] Localized enlarged lymph nodes (Primary Dx) Social History Tobacco Use Types [...] 1:00 PM EST Appointment [facility] [address] [place] [address] Oleg Buck, [address] [place] [address] [email or web address] 05/07/2025 2:00 PM EST Office Visit [facility] [place] [address] [place] [address] Oleg Buck, [address] [place] [address] [email or web address] documented as of this encounter Results * CT NECK SOFT TISSUE WITH CONTRAST (06/21/2021 2:44 PM EDT) Anatomical Region Laterality Modality Neck Computed Tomogra phy 06/22/2021 9:02 AM EDT Impressions 06/22/2021 9:39 AM EDT 1.Bulky right cervical lymphadenopathy. Findings suspicious for lymphoma. Tissue diagnosis recommended. 2.Advanced cervical spondylosis. Narrative 06/22/2021 9:39 AM EDT COMPARISON: Neck ultrasound 06/16/2021. TECHNIQUE: CT neck with IV contrast obtained from skull base to thoracic inlet. Multiplanar reformats obtained. Automated exposure control utilized. CT NECK FINDINGS: Brain: Imaged brain is normal. Orbits: Image orbits are normal. Paranasal Sinuses/Mastoids: Partial right mastoidectomy. Chronic partial right sphenoid sinus fluid opacification and sinus wall thickening. Musculoskeletal: Osteopenia. 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 No destructive or suspicious bone lesions. Salivary Glands/Thyroid Gland: Normal. Vasculature: Moderate diffuse atherosclerosis. No acute findings. Lung Apices/Airway: Airway is patent. No masses. 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 Soft Tissues: There is bulky right-sided cervical lymphadenopathy with the largest measuring up to 2.1 cm in short axis. Multiple subcentimeter left cervical lymph nodes. Procedure Note Froylan Boone MD - 06/22/2021 COMPARISON: Neck ultrasound 06/16/2021. TECHNIQUE: CT neck with IV contrast obtained from skull base to thoracicinlet. Multiplanar reformats obtained. Automated exposure controlutilized. CT NECK FINDINGS: Brain: Imaged brain is normal. Orbits: Image orbits are normal. Paranasal Sinuses/Mastoids: Partial right mastoidectomy. Chronic partialright sphenoid sinus fluid opacification and sinus wall thickening. Musculoskeletal: Osteopenia. Advanced multilevel cervical spine discdisease from C4-5 to C7-T1 with facet arthropathy, neural foraminalstenosis and mild bony canal stenosis at C5-6. No destructive orsuspicious bone lesions. Salivary Glands/Thyroid Gland: Normal. Vasculature: Moderate diffuse atherosclerosis. No acute findings. Lung Apices/Airway: Airway is patent. No masses. Moderate upper lobecentrilobular emphysema and bilateral calcified pleural plaques indicativeof asbestosis related pleural disease. Soft Tissues: There is bulky right-sided cervical lymphadenopathy with thelargest measuring up to 2.1 cm in short axis. Multiple subcentimeter leftcervical lymph nodes. IMPRESSION: 1.Bulky right cervical lymphadenopathy. Findings suspicious for lymphoma.Tissue diagnosis recommended. 2.Advanced cervical spondylosis. us Krishna A Bigda DO IMG CT XSPECIALTY ORDERABLES Fin al Result documented in this encounter Visit Diagnoses Diagnosis Localized enlarged lymph nodes- Primary Localized enlarged lymph nodes documented in this encounter Additional Health Concerns Infection Onset Date Last Indicated Resolved Time CoV-Risk 03/07/2022 03/07/2022 03/07/2022 2:44 PM EST COVID-19 03/07/2022 03/07/2022 03/28/2022 1:21 AM EST documented as of this encounter Care Teams Parent Partner Relationship Specialty Start Date End Date Krishna Key DO [email or web address] PCP - General 03/14/17 04/15/22 Krishna Key DO [email or web address] PCP - General Internal Medicine 04/16/22 07/01/24 Krishna Key DO [address] [place] [address] [email or web address] PCP - General Internal Medicine 07/02/24 Pawel Coelho MD [address] [place] [address] [address] [place] [address] [email or web address] Primary Oncologist Medical Oncology 07/05/21 06/18/24 Oleg Buck DO [address] [place] [address] [email or web address] Primary Oncologist Hematology and Oncology 06/19/24 Karly Iraheta, XENIA [address] [place] [address] [email or web address] Nurse Navigator 06/19/24 documented as of this encounter Additional Source Comments The information contained in this document represents components of the legal health record. It is not the complete legal health record.[facility]
--- OUTSIDE RECORDS SUMMARY | 2024-12-29 18:43 | XMS_ITS | Encounter Summary ---
Author Organization [facility] Address [address] [address] Phone Care Team Providers Care Rinkman Name Role Phone Krishna Key DO Primary Care Provider [phone] Pawel Coelho MD Unavailable Krishna Key DO Primary Care Provider [phone] Oleg Buck DO Unavailable [phone] Karly Iraheta RN Unavailable [phone] Krishna Key DO Primary Care Provider [phone] Encounter Details Date Type Department Care Team (Late st Contact Info) Description 05/30/2021 Transcribe Orders Virtual Department 30 [place] [address] Krishna Key DO [address] [facility] [place] [address] Disease of salivary gland, unspecified (Primary Dx) Social History Tobacco Use Types [...] 1:00 PM EST Appointment [facility] [address] [place] [address] Oleg Buck, DO [address] [place] [address] [email or web address] 05/07/2025 2:00 PM EST Office Visit [facility] [place] 30 [place] [address] Oleg Buck, DO [address] [place] [address] [email or web address] documented as of this encounter Results * US Soft Tissues of Head and Neck (Salivary Gland) (06/16/2021 2:50 PM EDT) Anatomical Region Laterality Modality Neck, Head Ultrasound 06/17/2021 12:5 3 PM EDT Impressions 06/17/2021 12:55 PM EDT Numerous abnormal appearing lymphadenopathy at the location of the palpable concern in the right upper neck. Narrative 06/17/2021 12:55 PM EDT US SOFT TISSUES OF HEAD AND NECK (SALIVARY GLAND) TECHNIQUE: Ultrasound of the right upper neck. COMPARISON: None FINDINGS: Targeted ultrasound was performed of the area of clinical concern, as indicated by the patient, in the right upper lateral neck. Numerous enlarged and abnormal appearing lymph nodes seen in the palpable area, the largest 3 measurin.5 x 1.5 x 2.4 cm, 1.6 x 1.3 x 1.8 cm, 2.0 x 1.6 x 1.7 cm. Procedure Note Clari Penny MD - 06/17/2021 US SOFT TISSUES OF HEAD AND NECK (SALIVARY GLAND) TECHNIQUE: Ultrasound of the right upper neck. COMPARISON: None FINDINGS: Targeted ultrasound was performed of the area of clinical concern, asindicated by the patient, in the right upper lateral neck. Numerousenlarged and abnormal appearing lymph nodes seen in the palpable area, thelargest 3 measurin.5 x 1.5 x 2.4 cm, 1.6 x 1.3 x 1.8 cm, 2.0 x 1.6 x1.7 cm. IMPRESSION: Numerous abnormal appearing lymphadenopathy at the location of thepalpable concern in the right upper neck. us Krishna Key DO IMG US HEAD/NECK NON THYROID Fin al Result documented in this encounter Visit Diagnoses Diagnosis Disease of salivary gland, unspecified- Primary Disease of salivary gland, unspecified documented in this encounter Additional Health Concerns Infection Onset Date Last Indicated Resolved Time CoV-Risk 03/07/2022 03/07/2022 03/07/2022 2:44 PM EST COVID-19 03/07/2022 03/07/2022 03/28/2022 1:21 AM EST documented as of this encounter Care Teams Rinkman Relationship Specialty Start Date End Date Krishna Key DO PCP - General 03/14/17 04/15/22 Krishna Key DO PCP - General Internal Medicine 04/16/22 07/01/24 Krishna Key DO [address] [place] [address] PCP - General Internal Medicine 07/02/24 Pawel Coelho MD [address] [place], [place] [address] [address] [place] [address] [email or web address] Primary Oncologist Medical Oncology 07/05/21 06/18/24 Oleg Buck DO [address] [place] [address] [email or web address] Primary Oncologist Hematology and Oncology 06/19/24 Karly Iraheta RN [address] [place] [address] [email or web address] Nurse Navigator 06/19/24 documented as of this encounter Additional Source Comments The information contained in this document represents components of the legal health record. It is not the complete legal health record.[facility]
--- OUTSIDE RECORDS SUMMARY | 2024-12-29 18:43 | XMS_ITS | Encounter Summary ---
Author Organization [facility] Address [address] [address] Phone Care Team Providers Care Human Resources Coordinator Name Role Phone Krishna Key DO Primary Care Provider [phone] Pawel Coelho MD Unavailable Krishna Key DO Primary Care Provider [phone] Oleg Buck DO Unavailable [phone] Karly Iraheta RN Unavailable [phone] Krishna Key DO Primary Care Provider [phone] Encounter Details Date Type Department Care Team (Late st Contact Info) Description 07/04/2021 Transcribe Orders Virtual Department [address] [place] [address] Krishna Key DO [address] [place] [address] Non-Hodgkin's lymphoma, unspecified body region, unspecified non-Hodgkin lymphoma type (Primary Dx) Social History Tobacco Use Types [...] 1:00 PM EST Appointment [facility] [address] [place] [address] Oleg Buck, DO [address] [place] [address] [email or web address] 05/07/2025 2:00 PM EST Office Visit [facility] [place] [address] [place] [address] Oleg Buck, DO [address] [place] [address] [email or web address] documented as of this encounter Visit Diagnoses Diagnosis Non-Hodgkin's lymphoma, unspecified body region, unspecified non-Hodgkin lymphoma type- Primary documented in this encounter Additional Health Concerns Infection Onset Date Last Indicated Resolved Time CoV-Risk 03/07/2022 03/07/2022 03/07/2022 2:44 PM EST COVID-19 03/07/2022 03/07/2022 03/28/2022 1:21 AM EST documented as of this encounter Care Teams Human Resources Coordinator Relationship Specialty Start Date End Date Krishna Key DO PCP - General 03/14/17 04/15/22 Krishna Key DO PCP - General Internal Medicine 04/16/22 07/01/24 Krishna Key DO [address] [place] [address] PCP - General Internal Medicine 07/02/24 Pawel Coelho MD [address] [place] [address] [address] [place] [address] [email or web address]. [email or web address] Primary Oncologist Medical Oncology 07/05/21 06/18/24 lOeg Buck DO [address] [place] [address] [email or web address] Primary Oncologist Hematology and Oncology 06/19/24 Karly Iraheta RN [address] [place] [address] [email or web address] Nurse Navigator 06/19/24 documented as of this encounter Additional Source Comments The information contained in this document represents components of the legal health record. It is not the complete legal health record.[facility]
--- OUTSIDE RECORDS SUMMARY | 2024-12-29 18:43 | XMS_ITS | Encounter Summary ---
Author Organization [facility] Address [address] [address] Phone Care Team Providers Care Hand Tube Bender Name Role Phone Krishna Key DO Primary Care Provider [phone] Pawel Coelho MD Unavailable Krishna Key DO Primary Care Provider [phone] Oleg Buck DO Unavailable [phone] Karly Iraheta RN Unavailable [phone] Krishna Key DO Primary Care Provider [phone] Encounter Details Date Type Department Care Team (Late st Contact Info) Description 08/11/2021 Transcribe Orders [facility] [address] [place] [address] Krishna Key DO [address] [facility] [place] [address] [email or web address] Social History Tobacco Use Types Packs/Day Years Used Date Smoking Tobacco: Former Cigarettes 2 40 Smokeless Tobacco: Never Alcohol Use Standard Drinks/Week Comments Yes 3 (1 standard drink = 0.6 oz pur e alcohol) 2x weekly Sex and Gender Information Value Date Recorded [...] 1:00 PM EST Appointment [facility] [address] [place] [address] Oleg Buck, DO [address] [place] [address] [email or web address] 05/07/2025 2:00 PM EST Office Visit [facility] [address] [place] [address] Oleg Buck, DO [address] [place] [id number] [email or web address] documented as of this encounter Visit Diagnoses Not on filedocumented in this encounter Additional Health Concerns Infection Onset Date Last Indicated Resolved Time CoV-Risk 03/07/2022 03/07/2022 03/07/2022 2:44 PM EST COVID-19 03/07/2022 03/07/2022 03/28/2022 1:21 AM EST documented as of this encounter Care Teams Hand Tube Bender Relationship Specialty Start Date End Date Krishna Key DO PCP - General 03/14/17 04/15/22 Krishna Key DO PCP - General Internal Medicine 04/16/22 07/01/24 Krishna Key DO [address] [place] [address] [place] [address] PCP - General Internal Medicine 07/02/24 Pawel Coelho MD [address] [place] [address] [address] [place] [address] [email or web address] Primary Oncologist Medical Oncology 07/05/21 06/18/24 Oleg Buck DO [address] [place] [id number] [email or web address] Primary Oncologist Hematology and Oncology 06/19/24 Karly Iraheta RN [address] [place] [id number] [email or web address] Nurse Navigator 06/19/24 documented as of this encounter Additional Source Comments The information contained in this document represents components of the legal health record. It is not the complete legal health record.[facility]
--- OUTSIDE RECORDS SUMMARY | 2024-12-29 18:43 | XMS_ITS | Data Portability ---
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) [facility] MODERATE MUST MEET 2 OUT OF 3 [...] THOROUGHLY DOCUMENT EACH ELEMENT THAT IS COVERED [facility] Not available 01/01/2024 13:51:59 06/23/2024 06/23/2024 [id number] [place] [address] (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) [facility] MODERATE MUST MEET 2 OUT OF 3 [...] THOROUGHLY DOCUMENT EACH ELEMENT THAT IS COVERED [facility] Not available 06/23/2024 13:36:14 12/29/2024 12/29/2024 [id number] [place] [address] (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) [facility] MODERATE MUST MEET 2 OUT OF 3 [...] EACH ELEMENT THAT IS COVERED Not available 12/29/2024 13:44:35 Plan of Treatment Reminders Order Date Submit Date Provider Last Modified By Organization Details Last Modified Time Details Appointments FOLLOW UP 2024 01:30P M DR GHOSH Not available Not available Not available FOLLOW UP 15 2025 11:30A M DR GHOSH Not available Not available Not available Lab CMP, serum or plasma 2024 025 [facility], [address] [place] [address], [id number], 12/29/2024 13:50:50 PSA, serum or plasma 2024 025 [facility], [address] [place] [address], [address], 12/29/2024 13:50:51 CBC w/ auto diff 2024 025 [facility], [address] [place] [address], [address], 12/29/2024 13:50:51 hemoglobi n A1c, QN, blood 2024 025 [facility], [address] [place] [address], [address], 06/24/2024 12:12:10 CMP, serum or plasma 2024 025 [facility], [address] [place] [address], [address], 06/24/2024 12:12:10 CBC 2024 025 [facility], [address] [place] [address], [address], 06/24/2024 12:12:10 PSA, serum or plasma 2024 025 [facility], [address] [place] [address], [address], 06/23/2024 13:51:40 PSA, serum or plasma 2023 024 [facility], [place], [address], 07/23/2023 14:10:53 CBC w/ auto diff 2023 024 [facility], [place], [address], 07/23/2023 14:10:53 CMP, serum or plasma 2023 024 [facility], [place], [address], 07/30/2023 08:16:34 lipid panel, blood 2023 024 [facility], [place], [address], 07/30/2023 08:16:35 iron + total iron-bind ing capacity (TIBC), serum 2023 024 [facility], [place], [address], 07/23/2023 14:10:53 ferritin, serum or plasma 2023 024 [facility], [place], [address], 07/23/2023 14:10:54 Referral None recorded. Procedures None recorded. Surgeries None recorded. Imaging None recorded. Medication Orders diclofena c sodium 50 mg tablet,de layed release 2024 025 [facility] [place], [address], 06/23/2024 13:41:00 Patient TargetsNo targets recorded. Patient Instructions Encounter Date Encounter Id Patient Instructions Last Modified By Organization Details Last Modified Time 07/23/2023 [id number] high blood pressure: care instructions Not available 07/23/2023 14:09:30 learning about high blood pressure Not available 07/23/2023 14:09:31 anemia: care instructions Not available 07/23/2023 14:09:31 01/01/2024 [id number] prediabetes: car e instructions Not available 01/01/2024 13:52:00 12/29/2024 [id number] prediabetes: car e instructions Not available 12/29/2024 13:46:56 Reason for Referral None Reported. Results Created Date Observation Date Name Description Value Unit Range Abnormal Flag Note LastModifiedBy Organization Detail LastModifiedTime Result Notes None recorded. Problems Name Problem SNOMED Code Status Onset Date Resolution Date Notes Provider Name and Address Organization Details Recorded Time Essential hypertens ion 21144828 Active 2017 Rocky kan [facility] 8 08:17:43 Hyperchol esterolem ia 20270388 Active 2017 Rocky kan [facility] 8 08:18:03 Neoplasm of urinary bladder 330004008 Active 2017 Rocky kan [facility] 8 08:18:17 Impaired fasting glycemia 143560687 Active 2017 Rocky kan [facility] 8 08:19:02 Lumbar arthritis 423781968 Active 2017 Krishna Ghosh DO [address] [place] [address], [address], [facility] 8 09:59:37 Eczema 04798334 Active 2018 Krishna Ghosh DO [address] [place] [address], [address], [facility] [place] 9 09:33:29 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 Krishna Ghosh DO [address] [place] [address], [address], [facility] [place] 2 22:52:26 Pain of left shoulder joint 735285415835 57932 Active 2021 Krishna Ghosh DO [address] [place] [address], [address], [facility] [place] 2 09:03:36 Pneumonia 807646357 Active 2022 VICENTE OLIVEROS [address] [place] [address], [address], [facility] [place] 3 09:12:34 Pneumonia caused by SARS-CoV- 2 645157757074 772462 Active 2022 VICENTE OLIVEROS [address] [place] [address], [address], [facility] [place] 3 09:13:05 Anemia 213296029 Active 2022 Krishna Ghosh DO [address] [place] [address], [address], [facility] [place] 3 16:13:36 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 Procedures Surgical History Date Name Laterality Status Provider Name and Address Organization Details Recorded Time 024 Corticosteroid Injection completed Krishna Ghosh DO [address] [place] [address], [address], [facility] [place] 07/26/2023 12:08:25 022 Corticosteroid Injection completed Krishna Ghosh DO [address] [place] [address], [address], [facility] [place] 06/13/2021 14:03:18 Imaging Results None [...] lable diclofenac sodium 50 mg tablet,delayed release TAKE 1 TABLET BY MOUTH TWICE DAILY NEEDED active Not Available Not Available No t Available ergocalciferol (vitamin D2) 1,250 mcg (50,000 unit) [...] in Arterial blood by Pulse oximetry Systolic And Diastolic Provider Name and Address Organization Details Last Updated DateTime 5 172.72 cm 25.4 kg/m2 46564.9 3 g 77 /min 97 % 97 % 130/68 mm[Hg] Ana Lin [facility] 5 13:26:53 Date Recorded Body height Body mass index (BMI) Body weight Heart rate Respiratory rate Oxygen saturation Oxygen saturation in Arterial blood by Pulse oximetry Systolic And Diastolic Provider Name and Address Organization Details Last Updated DateTime 4 172.72 cm 27 kg/m2 18599 g 62 /min 16 /min 97 % 97 % 136/70 mm[Hg] Adama Lei [facility] 4 13:44:01 Date Recorded Body height Body weight Body mass index (BMI) Heart rate Oxygen saturation Oxygen saturation in Arterial blood by Pulse oximetry Systolic And Diastolic Provider Name and Address Organization Details Last Updated DateTime 5 172.72 cm 48672.7 g 25.8 kg/m2 68 /min 97 % 97 % 116/68 mm[Hg] Kae Coronado [facility] 5 13:29:42 Date Recorded Body height Body mass index (BMI) Body weight Heart rate Oxygen saturation Oxygen saturation in Arterial blood by Pulse oximetry Systolic And Diastolic Provider Name and Address Organization Details Last Updated DateTime 4 172.72 cm 25.4 kg/m2 50549.9 3 g 66 /min 97 % 97 % 126/60 mm[Hg] Adama Savage [facility] 4 13:40:36 Social History Question Answer Notes LastModified by Organizat ion Details LastModified Time Tobacco Smoking Status Former Smoker Not Available [facility] 01/12/2020 03:36:24 What Was The Date Of Your Most Recent Tobacco Screening? 12/29/2024 [email or web address] Information not available 12/29/2024 Sex: Unknown Functional Status Question Answer Note LastModified by Organization D etails LastModified Time Do you or have you ever used any other forms of tobacco or nicotine? No Information not available 04/02/2022 Mental Status None recorded. Family History Nothing Reported. Medical History No medical history recorded. Immunizations Vaccine Type Date Status Note Provider Nam e and Address Organization Details Recorded Time COVID-19, mRNA, LNP-S, PF, 100 mcg/0.5mL dose or 50 mcg/0.25mL dose 1 completed Krishna Ghosh DO [address] [place] [address], [address], [facility] [place] 05/30/2021 14:08:20 COVID-19, mRNA, LNP-S, PF, 100 mcg/0.5mL dose or 50 mcg/0.25mL dose 1 completed Krishna Ghosh DO [address] [place] [address], [address], [facility] [place] 05/30/2021 14:08:50 COVID-19, mRNA, LNP-S, PF, 100 mcg/0.5mL dose or 50 mcg/0.25mL dose 1 completed Krishna Ghosh DO [address] [place] [address], [address], [facility] [place] 05/30/2021 14:08:35 influenza, unspecified formulation 4 completed Kaebruno kan, [facility] 12/17/2023 11:06:09 influenza, unspecified formulation 5 completed Pily kan, [facility] 12/11/2024 15:49:36 zoster, unspecified formulation 0 completed Krishna Ghosh, DO [address] [place] [address], [address], [facility] [place] 05/07/2019 14:20:31 Tdap 0 completed Krishna Ghosh, DO [address] [place] [address], [address], [facility] [place] 05/07/2019 14:21:39 Pneumococcal conjugate PCV 13 0 completed Krishna Ghosh DO [address] [place] [address], [address], [facility] [place] 05/07/2019 14:22:22 Past Encounters Encounter ID Performer Location Encounter Start Date Encounter Closed Date Diagnosis/Indication Diagnosis SNOMED-CT Code Diagnosis ICD10 Code Diagnosis IMO Codes Diagnosis Note [id number] Krishna Ghosh [facility] [address],[place] [address] 11/15/2017 09:21:42 11/15/2017 10:59:14 Impaired fasting glycemia 125641769 R73.01 stable and without issues have orderd another a1c with next lab Essential hypertension 84477497 I10 bp stable although pulse is a bit slow rides his bike daily Neoplasm o f urinary bladder 693789905 D49.4 recent urine cytology is negative Lumbar arthritis 8349650 01 M46.96 using cannabis with his med card [id number] Krishna Ghosh DO [facility] [address] [place] [address],[place] [address] 04/18/2018 08:53:25 04/18/2018 09:42:05 Essential hypertension 66969735 I10 bp stable although pulse is a bit slow rides his bike daily Impaired f asting glycemia 038035121 R73.01 stable and without issues have orderd another a1c with next lab Hypercholesterolemia 136 62912 E78.00 stable and not having any issues with the lovastatin Abdominal aortic aneurysm screening 558164909 Z13.6 [id number] Krishna Ghosh [facility] [address] [facility],[place] [address] 10/15/2018 09:24:28 10/15/2018 10:15:52 Essential hypertension 19289419 I10 bp stable rides his bike daily Impaired f asting glycemia 282486029 R73.01 stable and without issues have orderd another a1c now but again he has not done lab as request will just order each time he comes Eczema 57427411 L30.9 [id number] Krishna Ghosh [facility] [address] [facility] [facility],[place] [address] 05/06/2019 09:39:40 05/06/2019 10:41:26 Essential hypertension 02520649 I10 bp stable rides his bike daily Impaired f asting glycemia 734447044 R73.01 stable and without issues have orderd another a1c now but again he has not done lab as request will just order each time he comes Hypercholesterolemia 136 02323 E78.00 stable and not having any issues with the lovastatin Active or passive immunization 066220362 Z23 highly reccomende d i will send to delphine figueroa Lumbar arthritis 0255736 01 M46.96 using cannabis with his med card has worsening radiculopa thy will need a cane to assist with his ambulation as he is now a fall risk [id number] Krishna Ghosh [facility] [address] 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,[place] [address] 12/26/2020 14:24:08 12/26/2020 15:06:17 Lumbar arthritis 599357444 M46.96 we will try to get him some medication to use on a prn but he will let me know when he wants ithas worsening radiculopa thy will need a cane to assist with his ambulation as he is now a fall risk Essential hypertension 98424341 I10 bp stable and he still rides his bike daily or he is walking staying active works outside every day Eczema 84329679 L30.9 skin is dry uses mositurize r but eczema under control Impaired f asting glycemia 570751521 R73.01 a1c is 5.3 [id number] Krishna Ghosh DO [facility] [address] [facility] [address],[place] [address] 05/30/2021 14:02:41 05/30/2021 16:06:23 Hypercholesterolemia 75537613 E78.00 stable and not having any issues with the lovastatin Impaired f asting glycemia 481224482 R73.01 a1c is 5.3 Essential hypertension 10484329 I10 bp stable and he still rides his bike daily or he is walking staying active works outside every day Lumbar arthritis 2659623 01 M46.96 we will try to get him some medication to use on a prn but he will let me know when he wants ithas worsening radiculopa thy will need a cane to assist with his ambulation as he is now a fall risk Submandibu lar salivary gland swelling 712119641 K11.9 hopefully is just salivary swelling nontender so will get US first [id number] Krishna Ghosh [facility] [address] [facility],[place] [address] 06/13/2021 13:39:26 06/13/2021 14:34:25 Pain of left shoulder joint 8854824502 4062349 M25.512 known osteoarthr itis with very limited rom due to pain we will provide inj luis [id number] Krishna Ghosh [facility] [address] [facility],[place] [address] 07/04/2021 09:48:04 07/04/2021 10:31:54 Malignant lymphoma 864057845 C85.90 [id number] Krishna Ghosh [facility] [address] [facility],[place] [address] 03/15/2022 08:56:08 03/15/2022 10:41:18 Malignant lymphoma 753835556 C85.92 stable Pneumonia caused by SARS-CoV-2 4256490863 20352380 J12.82 recheck CXR for monitoring pna Neoplasm o f urinary bladder 545813449 C67.1 will f/u with urine sample, hasn't seen urology in at least a year [id number] Krishna Ghosh [facility] [address] [facility],[place] [address] 04/02/2022 15:41:23 04/02/2022 16:17:00 Malignant lymphoma 376081807 C85.[address] dorsey and is followed no treatment right now until pt notices it bothers then they willgive him RT Essential hypertension 99340536 I10 bp stable and he still rides his bike daily or he is walking staying active works outside every day Impaired f asting glycemia 846562869 R73.01 a1c is 5.3 Hypercholesterolemia 136 91194 E78.00 stable and not having any issues with the lovastatin Neoplasm o f urinary bladder 144412289 C67.1 recent urine cytology is negative Lumbar arthritis 0058802 01 M46.96 we will try to get him some medication to use on a prn but he will let me know when he wants ithas worsening radiculopa thy will need a cane to assist with his ambulation as he is now a fall risk Anemia 870793674 D64.9 [id number] Krishna Ghosh [facility] [address] [facility],[place] [address] 07/11/2022 13:47:04 07/11/2022 15:36:01 Essential hypertension 39250470 I10 bp stable and he still rides his bike daily or he is walking staying active works outside every day Malignant lymphoma [address]1203 [address] dorsey and is followed no treatment right now until pt notices it bothers then they willgive him RThe will be seen on august 09 and lab prior Neoplasm o f urinary bladder 619554745 C67.1 recent urine cytology is negative [id number] Krishna Ghosh [facility] [address] [facility],[place] [address] 12/31/2022 13:23:20 12/31/2022 14:05:19 Essential hypertension 48346977 I10 bp stable and he still rides his bike daily or he is walking staying active works outside every day Hypercholesterolemia 136 68239 E78.00 stable and not having any issues with the lovastatin Neoplasm o f urinary bladder 691397231 C67.1 recent urine cytology is negative and he remains currently free of ca Marginal z one lymphoma 488351091 C83.[address] maria and has been doing well RT will be started at some point too Lumbar arthritis 2172470 01 M46.96 we will try to get him some medication to use on a prn but he will let me know when he wants ithas worsening radiculopa thy will need a cane to assist with his ambulation as he is now a fall risk we will have him try diclofenac 50 bid [id number] Krishna Ghosh [facility] [address] [facility],[place] [address] 07/23/2023 13:39:02 07/23/2023 14:17:46 Essential hypertension 67430086 I10 bp stable and he still rides his bike daily or he is walking staying active works outside every day Hypercholesterolemia 136 34887 E78.00 stable and not having any issues with the lovastatin Marginal z one lymphoma 191112982 C83.[address] maria and has been doing well RT will be started at some point too Anemia 531505341 D64.9 no evidence right now as of 1 month ago will rechk in the fall Neoplasm o f urinary bladder 551832645 C67.1 recent urine cytology is negative and he remains currently free [place] [id number] Krishna Ghosh [facility] [address] [facility] [address] [place] [address] 07/26/2023 10:53:42 07/29/2023 09:42:59 Pain of left shoulder joint 1156932918 8689199 M25.512 known osteoarthr itis with very limited rom due to pain we will provide inj luis [id number] Krishna Ghosh [facility] [address] [facility],[place] [address] 01/01/2024 13:31:17 01/01/2024 14:02:46 Depression screening 183346280 Z13.31 neg Impaired f asting glycemia 981768720 R73.01 a1c is 5.3 Lumbar arthritis 4314801 01 M46.96 we will try to get him some medication to use on a prn but he will let me know when he wants ithas worsening radiculopa thy will need a cane to assist with his ambulation as he is now a fall riskwe will have him try diclofenac 50 bid Marginal z one lymphoma 344580847 C83.[address] maria and has been doing well RT will be started at some point toowill be sending him the results of the lab cbc shows hgb down to 11 [id number] Krishna Ghosh [facility] [address] [facility],[place] [address] 06/23/2024 13:15:17 06/23/2024 14:21:43 Essential hypertension 68083143 I10 here for bp doing ok overall Hypercholesterolemia 136 57860 E78.00 stable and not having any issues with the lovastatin Impaired f asting glycemia 298296875 R73.01 a1c is 5.3 Depression screening 171 256089 Z13.31 neg Lumbar arthritis 1204183 01 M46.96 we will try to get him some medication to use on a prn but he will let me know when he wants ithas worsening radiculopa thy will need a cane to assist with his ambulation as he is now a fall riskwe will have him try diclofenac 50 bid [id number] Krishna Ghosh DO [facility] [address] [facility],[place] [address] 12/29/2024 13:18:29 12/29/2024 13:52:38 Depression screening 271987318 Z13.31 neg Essential hypertension 04353740 I10 here for bp doing ok overall Impaired f asting glycemia 397554571 R73.01 a1c is 5.3 Health Concerns Section Related Observation LastModified by Organization Detai ls LastModified Time None Recorded Concern Status LastModified by Organization Details LastModified Time None Recorded Advance Directives Directive None Recorded Payers Insurance Date Sequence Insurance Name Policy Number Policy Guo Covered Member ID Guo Member ID Guarantor Name 12/29/2024 2 [place] [id number] Nico Ashraf [id number] Nico Ashraf 12/29/2024 1 [place] [employer] Nico Ashraf [id number] Nico Ashraf Notes Date Note Type Note Provider Name and Address Organization Details Recorded Time 07/23/19 24 text/htm l Care Management - HypertensionReported by PatientHPIFor self care, patient reportsnot under emotional stress. For severity, patient reportssymptoms are improvinganddoes not interfere with daily activities. For associated symptoms, patient reportsno dizziness,no lightheadedness,no chest pain,no shortness of breath,no palpitations,no edema,no calf muscle cramps,no blurred vision,no confusion,no headaches, andno fatigue.ROS as noted in the HPI here for rechk and is doing wellno major issues notednot having any cp or sobstill riding bike and walking dailyno fevers eating well sleep ok bowels good Krishna Ghosh, DO [address] [place], [address], [facility] 07/23/2023 14:10:31 07/26/19 24 text/htm l ROS as noted in the HPI here for his left shoulder cor t inj very sore hard to move Krishna Ghosh, DO [address] [place], [address], [facility] [place] 07/26/2023 12:09:17 01/01/20 24 text/htm l ROS as noted in the HPI here for rechk and is feeling well denies any new changes or painfeels the same appetite is goodsleep is okbowels the same no bleed Krishna Ghosh, DO [address] [place], [address], [facility] [place] 01/01/2024 13:54:01 06/24/19 25 text/htm l Care Management - HypertensionReported by PatientHPIFor self care, patient reportsnot under emotional stress. For severity, patient reportssymptoms are improvinganddoes not interfere with daily activities. For associated symptoms, patient reportsno dizziness,no lightheadedness,no chest pain,no shortness of breath,no palpitations,no edema,no calf muscle cramps,no blurred vision,no confusion,no headaches, andno fatigue. Care Management - HyperlipidemiaReported by PatientHPIFor control, patient reportsusually well controlled,improving, andat goal. For complications, patient reportsno coronary artery disease,no heart attack,no cardiovascular disease,no pancreatitis, andno stroke.ROS as noted in the HPI here for rechk and is doing ok overall no major issuesno cp no sob Krishna Ghosh, DO [address] [place], [address], [facility] 06/23/2024 13:41:47 12/30/19 25 text/htm l Care Management - HypertensionReported by PatientHPIFor self care, patient reportsnot under emotional stress. For severity, patient reportssymptoms are improvinganddoes not interfere with daily activities. For associated symptoms, patient reportsno dizziness,no lightheadedness,no chest pain,no shortness of breath,no palpitations,no edema,no calf muscle cramps,no blurred vision,no confusion,no headaches, andno fatigue.ROS as noted in the HPI here for rechk relates that he is doing ok overallhas a prob with a partial and has had a choking spellrelates gets up 4x per night but doesnt want anything for thisallso doesnt want any bladder cancer work up anymore Krishna Ghosh, DO [address] [facility], [place], [address], [facility] 12/29/2024 13:52:37
--- OUTSIDE RECORDS SUMMARY | 2024-12-29 18:43 | XMS_ITS | Encounter Summary ---
Author Organization [facility] Address [address] [facility] [address] [place] [address] Phone Care Team Providers Care Director Hair Name Role Phone Krishna Key DO Primary Care Provider [phone] Pawel Coelho MD Unavailable [phone] Krishna Key DO Primary Care Provider [phone] Oleg Buck DO Unavailable [phone] Karly Iraheta RN Unavailable [phone] Krishna Key DO Primary Care Provider [phone] Encounter Details Date Type Department Care Team (Late st Contact Info) Description 06/20/2021 Procedure Pass [facility], Ct Scan - [facility] [address] [place] [address] Social History Tobacco Use Types Packs/Day Years [...] 1:00 PM EST Appointment [facility] [address] [place] [address] Oleg Buck, DO [address] [place] [address] [email or web address] 05/07/2025 2:00 PM EST Office Visit [facility] [place] [address] [place] [address] Oleg Buck, DO [address] [place] [address] [email or web address] documented as of this encounter Visit Diagnoses Not on filedocumented in this encounter Additional Health Concerns Infection Onset Date Last Indicated Resolved Time CoV-Risk 03/07/2022 03/07/2022 03/07/2022 2:44 PM EST COVID-19 03/07/2022 03/07/2022 03/28/2022 1:21 AM EST documented as of this encounter Care Teams Director Hair Relationship Specialty Start Date End Date Krishna Key DO [email or web address] PCP - General 03/14/17 04/15/22 Krishna Key DO PCP - General Internal Medicine 04/16/22 07/01/24 Krishna Key DO [address] [place] [address] [email or web address] PCP - General Internal Medicine 07/02/24 Pawel Coelho MD [address] [place] [address] [address] [place] [address] [email or web address] Primary Oncologist Medical Oncology 07/05/21 06/18/24 Oleg Buck DO [address] [place] [address] [email or web address] Primary Oncologist Hematology and Oncology 06/19/24 Karly Iraheat RN [address] [place] [address] [email or web address] Nurse Navigator 06/19/24 documented as of this encounter Additional Source Comments The information contained in this document represents components of the legal health record. It is not the complete legal health record.[facility]
--- OUTSIDE RECORDS SUMMARY | 2024-12-29 18:44 | XMS_ITS | Continuity of Care Document ---
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 Procedures None recorded . Surgeries None recorded . Imaging None recorded . Medication Orders None recorded . Patient TargetsNo targets recorded. Patient Instructions Encounter Date Encounter Id Patient Instructions Last Modified By Organization Details Last Modified Time 12/29/2024 [id number] prediabetes: car e instructions Not available 12/29/2024 13:46:56 Reason for Referral None Reported. 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 Active 2017 Rocky kan [facility] 8 08:18:17 Impaired fasting glycemia 229375026 Active 2017 Rocky kan [facility] 8 08:19:02 Lumbar arthritis 163401013 Active 2017 Krishna Ghosh DO [address] [place] [address], [address], [facility] 8 09:59:37 Eczema 28280527 Active 2018 Krishna Ghosh DO [address] [place] [address], [address], [facility] 9 09:33:29 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 Krishna Ghosh DO [address] [place] [address], [address], [facility] 2 22:52:26 Pain of left shoulder joint 940063332425 06671 Active 2021 Krishna Ghosh DO [address] [place] [address], [address], [facility] 2 09:03:36 Pneumonia 771654789 Active 2022 VICENTE OLIVEROS [address] [place] [address], [address], [facility] 3 09:12:34 Pneumonia caused by SARS-CoV- 2 653281932986 032376 Active 2022 VICENTE OLIVEROS [address] [place] [address], [address], [facility] 3 09:13:05 Anemia 625477754 Active 2022 Krishna Ghosh DO [address] [place] [address], [address], [facility] 3 16:13:36 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 Procedures Surgical History Date Name Laterality Status Provider Name and Address Organization Details Recorded Time 024 Corticosteroid Injection completed Krishna Ghosh DO [address] [place] [address], [address], [facility] 07/26/2023 12:08:25 022 Corticosteroid Injection completed Krishna Ghosh DO [address] [place] [address], [address], [facility] 06/13/2021 14:03:18 Imaging Results None [...] Available Vitals Date Recorded Body height Body weight Body mass index (BMI) Heart rate Oxygen saturation Oxygen saturation in Arterial blood by Pulse oximetry Systolic And Diastolic Provider Name and Address Organization Details Last Updated DateTime 5 172.72 cm 56912.7 g 25.8 kg/m2 68 /min 97 % 97 % 116/68 mm[Hg] [facility] 5 13:29:42 Social History Question Answer Notes LastModified by Organizat ion Details LastModified Time Tobacco Smoking Status Former Smoker Not Available [facility] 01/12/2020 03:36:24 What Was The Date Of [...] mcg/0.25mL dose 1 completed Krishna Ghosh DO [address] [place] [address], [address], [facility] 05/30/2021 14:08:20 COVID-19, mRNA, LNP-S, PF, 100 mcg/0.5mL dose or 50 mcg/0.25mL dose 1 completed Krishna Ghosh DO [address] [place] [address], [address], [facility] 05/30/2021 14:08:50 COVID-19, mRNA, LNP-S, PF, 100 mcg/0.5mL dose or 50 mcg/0.25mL dose 1 completed Krishna Ghosh DO [address] [place] [address], [address], [facility] 05/30/2021 14:08:35 influenza, unspecified formulation 4 completed [facility] 12/17/2023 11:06:09 influenza, unspecified formulation 5 completed [facility] 12/11/2024 15:49:36 zoster, unspecified formulation 0 completed Krishna Ghosh DO [address] [place] [address], [address], [facility] 05/07/2019 14:20:31 Tdap 0 completed Krishna Ghosh DO [address] [place] [address], [address], [facility] 05/07/2019 14:21:39 Pneumococcal conjugate PCV 13 0 completed Krishna Ghosh DO [address] [place] [address], [address], [facility] 05/07/2019 14:22:22 Past Encounters Encounter ID Performer Location Encounter Start Date Encounter Closed Date Diagnosis/Indication Diagnosis SNOMED-CT Code Diagnosis ICD10 Code Diagnosis IMO Codes Diagnosis Note [id number] Krishna Ghosh DO [facility] [address],[place] [address] 12/29/2024 13:18:29 12/29/2024 13:52:38 Depression screening 421273595 Z13.31 neg Essential hypertension 06783594 I10 here for bp doing ok overall Impaired f asting glycemia 505037473 R73.01 a1c is 5.3 Health Concerns Section Related Observation LastModified by Organization Detai ls LastModified Time None Recorded Concern Status LastModified by Organization Details LastModified Time None Recorded Payers Encounter Date Sequence Insurance Name Policy Number Policy Guo Covered Member ID Guo Member ID Guarantor Name 12/29/2024 2 [place] [id number] Nico Ashraf [id number] Nico Ashraf 12/29/2024 1 [place] [employer] Nico Ashraf [id number] Nico Ashraf Notes Date Note Type Note Provider Name and Address Organization Details Recorded Time 5 text/htm l Care Management - HypertensionReported by PatientHPIFor self care, patient reportsnot under emotional stress. For severity, patient reportssymptoms are improvinganddoes not interfere with daily activities. For associated symptoms, patient reportsno dizziness,no lightheadedness,no chest pain,no shortness of breath,no palpitations,no edema,no calf muscle cramps,no blurred vision,no confusion,no headaches, andno fatigue.ROS as noted in the HPI here for rohan relates that he is doing ok overallhas a prob with a partial and has had a choking spellrelates gets up 4x per night but doesnt want anything for thisallso doesnt want any bladder cancer work up anymore Krishna Ghosh, DO [address] [facility], [place], [address], [facility] 12/29/2024 13:52:37
--- OUTSIDE RECORDS SUMMARY | 2024-12-29 18:44 | XMS_ITS | Encounter Summary ---
Author Organization [facility] Address [address] [facility] [address] [place] [address] Phone Care Team Providers Care Fork Operator Name Role Phone Krishna Key DO Primary Care Provider [phone] Pawel Coelho MD Unavailable [phone] Krishna Key DO Primary Care Provider [phone] Oleg Buck DO Unavailable [phone] Karly Iraheta RN Unavailable [phone] BigKrishna cruz DO Primary Care Provider [phone] Encounter Details Date Type Department Care Team (Late st Contact Info) Description 08/25/2021 Procedure Pass [place] Admitting Dept - Virtual Department [address] [place] [address] Social History Tobacco Use Types Packs/Day Years Used Date Smoking Tobacco: Former Cigarettes 2 40 Smokeless Tobacco: Never Alcohol Use Standard Drinks/Week Comments Yes 5 (1 standard drink = 0.6 oz pur e alcohol) Sex and Gender Information Value Date Recorded [...] 1:00 PM EST Appointment [facility] [address] [place] [address] Oleg Buck, DO [address] [place] [address] [email or web address] 05/07/2025 2:00 PM EST Office Visit [facility] [place] [address] [place] [address] Oleg Buck, DO [address] [place] [address] [email or web address] documented as of this encounter Visit Diagnoses Not on filedocumented in this encounter Additional Health Concerns Infection Onset Date Last Indicated Resolved Time CoV-Risk 03/07/2022 03/07/2022 03/07/2022 2:44 PM EST COVID-19 03/07/2022 03/07/2022 03/28/2022 1:21 AM EST documented as of this encounter Care Teams Fork Operator Relationship Specialty Start Date End Date Krishna Key DO [email or web address] PCP - General 03/14/17 04/15/22 Krishna Key DO PCP - General Internal Medicine 04/16/22 07/01/24 Krishna Key DO [address] [place] [address] [place] [address] [email or web address] PCP - General Internal Medicine 07/02/24 Pawel Coelho MD [address] [place] [address] [address] [place] [address] [email or web address] Primary Oncologist Medical Oncology 07/05/21 06/18/24 Oleg Buck DO [address] [place] [address] [email or web address] Primary Oncologist Hematology and Oncology 06/19/24 Kraly Iraheta RN [address] [place] [address] [email or web address] Nurse Navigator 06/19/24 documented as of this encounter Additional Source Comments The information contained in this document represents components of the legal health record. It is not the complete legal health record.[facility]
--- OUTSIDE RECORDS SUMMARY | 2024-12-29 18:44 | XMS_ITS | Encounter Summary ---
Author Organization [facility] Address [address] [facility] [address] [place] [address] Phone Care Team Providers Care Group Account Director Name Role Phone Krishna Key DO Primary Care Provider [phone] Pawel Coelho MD Unavailable [phone] Krishna Key DO Primary Care Provider + Oleg Buck DO Unavailable [phone] Karly Iraheta RN Unavailable [phone] BigKrishna cruz DO Primary Care Provider [phone] Encounter Details Date Type Department Care Team (Late st Contact Info) Description 03/07/2022 Procedure Pass [facility], Ct Scan - [address] [address] Social History Tobacco Use Types Packs/Day Years [...] n file documented as of this encounter Functional Status * Calculated C-SSRS Risk Score (Lifetime/Recent) Answer Date of Assessment Author No Risk Indicated 03/07/2022 1:53 PM Bela Mclean, XENIA * [place] Suicide Severity Rating Scale (Screener/Recent Self-Report) Question Answer Date of Assessment Author 1. Wish to be (Past 1 Month) No 022 1:53 PM Bela Mclean, XENIA 2. Non-Specific Active Suici suzie Thoughts (Past 1 Month) No 03/07/2022 1:53 PM Bela Mclean , XENIA 6. Suicidal Behavior (Lifetime) No 1:53 PM Bela Mclean, XENIA documented as of this encounter Plan of Treatment Upcoming Encounters Date Type Department Care Team (Late st Contact Info) Description 05/07/2025 1:00 PM EST Appointment [facility] [address] [place] [address] Oleg Buck, DO [address] [place] [address] [email or web address] 05/07/2025 2:00 PM EST Office Visit [facility] [address] [address] Oleg Buck DO [address] [place] [address] [email or web address] documented as of this encounter Visit Diagnoses Not on filedocumented in this encounter Additional Health Concerns Infection Onset Date Last Indicated Resolved Time CoV-Risk 03/07/2022 03/07/2022 03/07/2022 2:44 PM EST COVID-19 03/07/2022 03/07/2022 03/28/2022 1:21 AM EST documented as of this encounter Care Teams Group Account Director Relationship Specialty Start Date End Date Yesi Krishna PruittDO [email or web address] PCP - General 03/14/17 04/15/22 Krishna Key DO PCP - General Internal Medicine 04/16/22 07/01/24 Krishna Key DO [address] [place] [address] PCP - General Internal Medicine 07/02/24 Pawel Coelho MD [address] [place] [address] [address] [place] [address] [email or web address] Primary Oncologist Medical Oncology 07/05/21 06/18/24 Oleg Buck DO [address] [place] [address] [email or web address] Primary Oncologist Hematology and Oncology 06/19/24 Karly Iraheta, XENIA [address] [place] [address] [email or web address] Nurse Navigator 06/19/24 documented as of this encounter Additional Source Comments The information contained in this document represents components of the legal health record. It is not the complete legal health record.[facility]
[2024-12-29 19:24] LABS: Atypical Lymph Absolute Manual 2.0 x10*3/uL; Atypical Lymphs Percent Manual 13 % (0-6); Eosinophils Absolute Manual 0.3 X10*3/uL (0.0-0.4); Eosinophils Percent Manual 2 % (0-4); Lymphocytes Absolute Manual 5.6 X10*3/uL (1.2-4.9); Lymphocytes Percent Manual 37 % (20-40); Monocytes Absolute Manual 0.6 X10*3/uL (0.1-1.2); Monocytes Percent Manual 4 % (2-11); Neutrophils Percent Manual 44 % (45-73)
[2024-12-29 19:25] LABS: Band Neutrophils Percent 0 % (3-5); Neutrophils Absolute Manual 6.7 X10*3/uL (2.0-8.3); RBC Morphology NOTED
[2024-12-29 19:27] LABS: Acanthocytes 1+ (0-2) /OIF
[2024-12-29 19:29] LABS: Smudge Cells PRES; Tear Drop Cells 1+ (0-2) /OIF
== END 2024-12-29 13:58 | disposition home or self-care (01) ==
LOC: HO.MANLDS 13:57
PROVIDERS: Internal Medicine Hematology & Oncology; Visit Provider Internal Medicine
DX: Z12.5 Encounter for screening for malignant neoplasm of prostate (principal); I10 Essential (primary) hypertension
CPT/HCPCS: 36415; 80053; 84153; 85007; 85027